=== PATIENT | female | born 1965 | race Caucasian/White ===

== ENCOUNTER 2023-03-08 19:44 | Emergency (ER) | payer OTHER, SELFPAY ==
--- NOTE | ~2023-03-08 | XR_ITS ---
EXAMINATION: XR FINGER, LEFT CLINICAL INFORMATION: Left 5th finger trauma. COMPARISON: None available. TECHNIQUE: PA view of the left hand as well as oblique and lateral views of the left small finger. FINDINGS: Volar soft tissue defect/laceration. No radiopaque foreign body. No abnormal soft tissue calcification. No acute fracture or dislocation. No concerning lytic or blastic osseous lesion. 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 XR/XR finger LT min 2V IMPRESSION: 1. Volar soft tissue defect/laceration without radiopaque foreign body. 2. No acute fracture or dislocation.
[2023-03-08 20:00] VITALS: BP 130/80; BP 138/73; PULSE 104; PULSE 90; RESP 18; TEMP 36.6; O2SAT 97; O2SAT 98; BMI 33.7
--- NOTE | 2023-03-08 20:02 | ED.GENADULT ---
HPI - General Adult General Chief complaint: Extremity Injury, Upper Stated complaint: lac to L hand pinky Time Seen by Provider: 03/08/23 21:44 Source: patient Mode of arrival: ambulatory Limitations: no limitations History of Present Illness HPI narrative: see additional note dated 03/08/2023 Related Data Allergies Allergy/AdvReac Type Severity Reaction Status Date / Time dulaglutide [From [facility]] Allergy Unknown Unknown Verified 03/08/23 20:06 doxycycline AdvReac Chest Pain Verified 03/08/23 20:06 ibuprofen AdvReac Chest Pain Verified 03/08/23 20:06 Physical Exam ED Vital Signs: BMI result Body Mass Index 33.7 Course Course Course Narrative: This is a rapid medical exam: Additional HPI, ROS, PE not included below will be deferred to primary provider. Patient is a 57-year-old [id number] female presenting to the emergency department with complaint of laceration to left 5th finger which happened at work. States was pushing open a trash machine when her hand was crushed by part of the door. Unsure most recent tetanus. Decreased ROM with flexion. Avulsion to palmar aspect as well as what appears to be a puncture wound. Plan: Tdap, x-ray Medications Administered Discontinued Medications Generic Name Dose Route Start Last Admin Trade Name Freq PRN Reason Stop Dose Admin Diphtheria/Tetanus/Acell Pertussis 0.5 ml 03/08/23 20:06 03/08/23 21:13 Diphth,Pertus(Acell),Tet Adult 0.5 Ml Syringe IM 03/08/23 20:07 0.5 ml .ONCE ONE Administration Lidocaine HCl 5 ml 03/08/23 22:54 03/08/23 23:29 Lidocaine Hcl 1 % Mpf 5 Ml Vial SUBCUT 03/08/23 22:55 5 ml ONCE ONE Administration Discharge Plan Discharge Clinical Impression: Finger laceration Patient Disposition: Home, Self-Care Instructions: Finger Laceration (ED) Additional Instructions: 2 Stitches will need to be removed in 10-14 days. He can return back to the emergency department or follow-up with your primary care provider for removal. If you develop redness, increased swelling, pain, pus-like discharge, fevers, chills then you should have this re-evaluated Referrals: Marisel Ojeda MD [Primary Care Provider] - Interventions: ED Discharge Assessment Last Done: 03/09/23 00:03 Discharge Date/Time: 03/09/23 00:04
[2023-03-08] MEDS: Diphth,Pertus(ACell),Tet Adult 0.5 ML SYRINGE IM (21:13)
--- NOTE | 2023-03-08 22:47 | ED_ITS ---
HPI - Wound/Laceration General Chief Complaint: Extremity Injury, Upper Stated Complaint: lac to L hand pinky Time Seen by Provider: 03/08/23 21:44 Source: patient Mode of arrival: EMS Limitations: no limitations History of Present Illness HPI narrative: Patient is a 57-year-old female who presents emergency department for evaluation of a laceration to the left 5th digit. She reports that she was attempting to m ove a lower cleaning machine at work when suddenly a plastic door slammed down and caught her finger sustaining a laceration. She is able to flex and extend the digit though it is painful to do so. Bleeding is currently controlled. The unaware of the date of her last tetanus vaccine. Related Data Allergies Allergy/AdvReac Type Severity Reaction Status Date / Time dulaglutide [From [facility]] Allergy Unknown Unknown Verified 03/08/23 20:06 doxycycline AdvReac Chest Pain Verified 03/08/23 20:06 ibuprofen AdvReac Chest Pain Verified 03/08/23 20:06 Review of Systems Review of Systems: Yes all other systems are reviewed and are negative [facility] Past Medical History Attestation statement: The following information was validated with the patient. Source: old records reviewed Social History Social History Advance Directives: No Advance Directives Information Provided: No Physical Exam Vital Signs: Vital Signs: Last Vital Signs Temp 97.9 F 03/08/23 20:00 Pulse 104 H 03/08/23 20:00 Resp 18 03/08/23 20:00 BP 138/73 03/08/23 20:00 Pulse Ox 97 03/08/23 20:00 O2 Del Method Room Air 03/08/23 20:00 BMI result Body Mass Index 33.7 Appearance: Alert.?Oriented to person, place and time. No acute distress.?Normal affect. Neck: Normal inspection.? Neck supple.?? CVS: Heart sounds normal. Normal heart rate and rhythm.? Pulses normal.?? Respiratory: No respiratory distress.? Lung sounds clear to auscultation bilaterally?? Abdomen: Soft and non-tender. Skin: Skin warm and dry.? Normal skin color.? Left 5th digit with 2 cm irregular laceration over the palmar aspect Extremities: No lower extremity edema.? Neuro: Moves all extremities spontaneously. Sensation intact bilaterally. Ambulates with normal steady gait. Medications Administered Discontinued Medications Generic Name Dose Route Start Last Admin Trade Name Freq PRN Reason Stop Dose Admin Diphtheria/Tetanus/Acell Pertussis 0.5 ml 03/08/23 20:06 03/08/23 21:13 Diphth,Pertus(Acell),Tet Adult 0.5 Ml Syringe IM 03/08/23 20:07 0.5 ml .ONCE ONE Administration Medical Decision Making Medical Decision Making [facility] Narrative: Patient is a 57-year-old female presents emergency department for evaluation of a laceration to the left 5th digit. Bleeding is controlled. Was cleansed extensively with Betadine and saline. Full AROM, able to flex and extend. XR imaging reveals no acute osseous abnormality. Laceration repair with sutures, please see procedure note for further detail. Advised she will need suture removal in 10-14 days. Discussed worrisome signs and symptoms including signs of infection that would warrant re-evaluation. All questions answered. Stable for discharge. Differential Diagnosis Differential Diagnoses: The differential diagnosis associated with the presentation includes (Laceration, fracture, neurovascular compromise) Independent Interpretation I performed an independent interpretation of an: Plain X-Ray (I personally interpreted XR imaging of the left finger and agree with radiologist impression, no fracture or retained radiopaque foreign body) Radiology Impression Discussion of test interpretation with radiology: I have reviewed the radiologist's reading. Radiologist Impression: XR/XR finger LT min 2V IMPRESSION: ? 1. Volar soft tissue defect/laceration without radiopaque foreign body. ? 2. No acute fracture or dislocation. Prescription Management I considered prescription management with: Pain Medication (Acetaminophen/ibuprofen) and Antibiotic (Topical antibiotic) Procedures Laceration Laceration 1: Site: hand Side (If applicable): left Size (cm): 2 Description: irregular Depth: simple, single layer Local Anesthetic: lidocaine 1% Amount of anesthesia used (mL): 2 Pre-repair: wound explored, irrigated extensively and deep structures intact Skin layer closed with: nylon Size (cm): 5-0 Number of sutures: 2 Technique: simple, interrupted Discharge Plan Discharge Clinical Impression: Finger laceration Patient Disposition: Home, Self-Care Instructions: Finger Laceration (ED) Additional Instructions: 2 Stitches will need to be removed in 10-14 days. He can return back to the emergency department or follow-up with your primary care provider for removal. If you develop redness, increased swelling, pain, pus-like discharge, fevers, chills then you should have this re-evaluated Referrals: Marisel Ojeda MD [Primary Care Provider] -
[2023-03-08] MEDS: Lidocaine HCl 1 % MPF 5 ML VIAL SUBCUT (23:29)
== END 2023-03-09 00:04 | disposition home or self-care (01) ==
PROVIDERS: Emergency Provider Internal Medicine; PCP Internal Medicine
DX: S61.217A Laceration without foreign body of left little finger without damage to nail, initial encounter (principal); S60.417A Abrasion of left little finger, initial encounter; M79.642 Pain in left hand; Y28.9XXA Contact with unspecified sharp object, undetermined intent, initial encounter; Y93.9 Activity, unspecified; Y92.9 Unspecified place or not applicable; Y99.9 Unspecified external cause status; Z23 Encounter for immunization
CPT/HCPCS: 12001; 73140; 90471; 90715; 99282; 99284

== ENCOUNTER 2023-12-14 15:05 | Inpatient (IN) | payer OTHER, SELFPAY ==
--- NOTE | ~2023-12-14 | XR_ITS ---
EXAMINATION: XR ANKLE, LEFT XR FOOT, LEFT CLINICAL INFORMATION: Great toe wound. COMPARISON: Left tibia and fibula dated 12/15/2023. TECHNIQUE: AP, lateral, and mortise views of the left ankle. AP, lateral, and oblique views of the left foot. FINDINGS: Bony alignment and mineralization are normal. The ankle mortise is intact. No fracture, dislocation or left ankle joint effusion is seen. Boehler's angle is normal. There are tiny posterior and small plantar calcaneal spurs. There are degenerative changes of the dorsal midfoot. There is generalized soft tissue swelling of the ankle. There is no bone erosion or periosteal thickening. No soft tissue gas or foreign body is noted. XR/XR ankle LT min 3V IMPRESSION: 1. No fracture, dislocation or left ankle joint effusion is seen. 2. There are tiny posterior and small plantar left calcaneal spurs. 3. No focal bone erosion, periosteal thickening or soft tissue gas is seen to suggest focal osteomyelitis.
--- NOTE | ~2023-12-14 | US_ITS ---
EXAMINATION: NONINVASIVE ASSESSMENT OF THE ARTERIES OF THE LEFT LOWER EXTREMITY INCLUDING LEFT LOWER EXTREMITY DUPLEX. CLINICAL INFORMATION: Diabetes, infection COMPARISON: None TECHNIQUE: duplex Doppler techniques with wave form analysis and measurement of velocities in the left common femoral, profunda femoral, superficial femoral, popliteal, tibial and peroneal arteries. The study was performed only at rest. FINDINGS: LEFT LEG: Common femoral artery: 106 cm/s, Multiphasic Profunda femoris artery: 45 cm/s, Multiphasic Superficial femoral artery (proximal): 106 cm/s, Multiphasic Superficial femoral artery (mid): 83 cm/s, Multiphasic Superficial femoral artery (distal): 82 cm/s, Multiphasic Proximal Popliteal artery: 91 cm/s, Multiphasic Mid posterior tibial artery: 91 cm/s, monophasic US/US arterial duplex LE IMPRESSION: Monophasic waveforms in the mid posterior tibial artery, atherosclerotic disease, otherwise no hemodynamically significant stenoses.
--- NOTE | ~2023-12-14 | IR_ITS ---
CLINICAL HISTORY: IV antibiotics PROCEDURES: 1. Real-time ultrasound-guided access into the right basilic vein after documentation of selected vessel patency, and permanent imaging storing in the patient record. 2. Placement of a 5 fr 45 cm, dual lumen power PICC CLINICIANS: Khoa Mireles PA-C MEDICATIONS: -Lidocaine 1% 10 mL SQ. -Antibiotics: None. Complications: None. Estimated blood loss: <5 ml Specimens: None. Contrast: None. Fluoroscopy time: 0.4 min Procedure note: The procedure, risks, benefits, and alternatives were carefully explained to the patient and written informed consent was obtained. The patient was placed supine on the fluoroscopy table. A timeout was performed. The right arm was prepped and draped in usual sterile fashion. Using ultrasound and fluoroscopic guidance, venous access was achieved into the basilic vein with a micropuncture set. A peel-away sheath was advanced over the wire. The 0.018 inch wire was advanced into the right atrium. A 5 fr, 45 cm, dual lumen power PICC was advanced over the wire, with its tip in the the caval atrial junction. The wire was removed. The catheter was tested and secured with a StatLock dressing. A permanent ultrasound image and chest fluoroscopic image was saved to PACS. The patient was stable after the procedure and was transferred to the floor. FINDINGS: 1. Patent right basilic vein 2. Placement of a 5 fr 45 cm, dual lumen power PICC IR/IR cvc insert peripheral IMPRESSION: Placement of a 5 fr 45 cm, dual lumen power PICC PLAN: -The catheter may be used immediately. This procedure was performed by Khoa Mireles PA-C, and directly supervised by Dr. Olson
--- NOTE | ~2023-12-14 | MR_ITS ---
EXAMINATION: MR FOOT WITHOUT AND WITH CONTRAST, LEFT CLINICAL INFORMATION: Left great toe infection. Evaluate for osteomyelitis. COMPARISON: Left foot radiographs dated 12/14/2023. TECHNIQUE: MRI of the left foot was performed before and after the intravenous administration of 7.5 mL Gadavist on a high-field scanner. FINDINGS: Soft tissue irregularity with possible ulceration along the plantar aspect of the distal great toe. This measures approximately 1.5 cm in AP dimension. Associated skin thickening and subcutaneous edema with mild postcontrast enhancement, consistent with acute cellulitis. No organized fluid collection or abscess formation. Significantly increased T2 and slightly decreased T1 signal within the first distal phalanx where there is prominent postcontrast marrow enhancement and periosteal reaction, consistent with acute osteomyelitis. No additional evidence of osteomyelitis. No metatarsal stress reaction or fracture. No concerning lytic or blastic osseous lesion. Articular cartilage thinning with small marginal osteophytes at the first metatarsophalangeal joint and hallux sesamoids. Partially visualized osteoarthritis at the second and third tarsometatarsal joints. Edema throughout the intrinsic musculature of the foot which can be seen in diabetic patients. No transverse tendon tear or tendon retraction. Intact Lisfranc ligament. Prominent dorsal subcutaneous edema without enhancement or abscess formation. MR/MR foot LT wo/w con IMPRESSION: 1. Soft tissue irregularity with possible ulceration along the plantar aspect of the distal great toe with associated cellulitis. No abscess formation. Acute osteomyelitis within the first distal phalanx. 2. Mild osteoarthritis at the first metatarsophalangeal joint and hallux sesamoids. Partially visualized osteoarthritis at the second and third tarsometatarsal joints. 3. Edema throughout the intrinsic musculature of the foot which can be seen in diabetic patients. 4. Prominent dorsal subcutaneous edema without enhancement or abscess formation.
--- NOTE | ~2023-12-14 | XR_ITS ---
EXAMINATION: XR TIBIA AND FIBULA, LEFT CLINICAL INFORMATION: Foot injury now with lower extremity pain COMPARISON: None available. TECHNIQUE: AP and lateral views of the left tibia and fibula were obtained. FINDINGS: Tibia and fibula intact. No radiopaque foreign body or fracture or destructive process. XR/XR tibia fibula LT 2V IMPRESSION: Normal left tibia and fibula.
--- NOTE | ~2023-12-14 | XR_ITS ---
EXAMINATION: XR ANKLE, LEFT XR FOOT, LEFT CLINICAL INFORMATION: Great toe wound. COMPARISON: Left tibia and fibula dated 12/15/2023. TECHNIQUE: AP, lateral, and mortise views of the left ankle. AP, lateral, and oblique views of the left foot. FINDINGS: Bony alignment and mineralization are normal. The ankle mortise is intact. No fracture, dislocation or left ankle joint effusion is seen. Boehler's angle is normal. There are tiny posterior and small plantar calcaneal spurs. There are degenerative changes of the dorsal midfoot. There is generalized soft tissue swelling of the ankle. There is no bone erosion or periosteal thickening. No soft tissue gas or foreign body is noted. XR/XR foot LT min 3V IMPRESSION: 1. No fracture, dislocation or left ankle joint effusion is seen. 2. There are tiny posterior and small plantar left calcaneal spurs. 3. No focal bone erosion, periosteal thickening or soft tissue gas is seen to suggest focal osteomyelitis.
[2023-12-14 15:10] VITALS: BP 137/80; PULSE 98; RESP 16; TEMP 36.3; O2SAT 96; BMI 32.5
--- NOTE | 2023-12-14 15:16 | ED.WOUNDLAC ---
HPI - Wound/Laceration General Chief Complaint: Wound/Laceration Stated Complaint: bilat feet swollen, patient is diabetic Time Seen by Provider: 12/14/23 17:16 Source: patient Mode of arrival: ambulatory Limitations: no limitations History of Present Illness ED Provider: Eder Paez PA-C HPI narrative: 58-year-old female past medical history of diabetes presents to the ED for right great toe redness and swelling. Patient was picking at her nails and now has redness with some yellow discoloration. Patient states glucose has been elevated. Patient states no fever or chills. Patient states having pain. Patient states now redness spreading up leg Related Data Home Medications ?Medication ?Instructions ?Recorded ?Confirmed atorvastatin 40 mg tablet 40 mg PO BEDTIME 12/14/23 12/14/23 cholecalciferol (vitamin D3) 25 25 mcg PO DAILY 12/14/23 12/14/23 mcg (1,000 unit) capsule (Vitamin D3) insulin glargine 100 unit/mL (3 25 unit subcut BID 12/14/23 12/14/23 mL) subcutaneous pen (Lantus Solostar U-100 Insulin) simethicone 180 mg capsule 180 mg PO QID PRN Gastric Reflux 12/14/23 12/14/23 Allergies Allergy/AdvReac Type Severity Reaction Status Date / Time dulaglutide [From [facility]] Allergy Unknown Unknown Verified 12/14/23 15:10 doxycycline AdvReac Chest Pain Verified 12/14/23 15:10 ibuprofen AdvReac Chest Pain Verified 12/14/23 15:10 [facility] Past Medical History Medical History (Updated 12/14/23 @ 19:53 by JENNIFER Aguirre) Asthma Hyperlipidemia Type 2 diabetes mellitus Social History Social History Smoked in Last 30 Days: No Use of substances other than those prescribed or required for medical reasons: No Advance Directives: No Advance Directives Information Provided: No Do you have a plan to hurt others: No Plan Patient : No Physical Exam Vital Signs: Vital Signs: Last Vital Signs Temp 97.3 F 12/14/23 15:10 Pulse 98 12/14/23 15:10 Resp 16 12/14/23 15:10 BP 137/80 12/14/23 15:10 Pulse Ox 96 12/14/23 15:10 O2 Del Method Room Air 12/14/23 15:10 BMI result Body Mass Index 32.5 Const: General: cooperative, healthy appearing, comfortable, no acute distress, well developed, alert, awake and Physically active Orientation/consciousness: oriented to person, oriented to place, oriented to time and patient oriented x3 HEENT: Head: Yes normal to inspection, Yes No palpable skull fracture present, Yes normocephalic, Yes atraumatic and No abrasion Eyes: General: appearance normal, both eyes and all related structures Neck: Neck: Yes normal visual inspection, Yes full ROM, Yes no lymphadenopathy, Yes no meningeal signs, Yes trachea midline, Yes supple, No anterior neck swelling and No tender Chest: Chest palpation & inspection: normal inspection of the chest and normal palpation of entire chest wall Resp: Effort & Inspection: normal respiratory effort and able to speak in complete sentences Auscultation: clear to auscultation bilaterally Cardio: Jugular venous distension: no JVD Heart sounds: S1 normal heart sound present and S2 normal heart sound present GI: Inspection: Yes normal to inspection Palpation (GI): Soft to palpation, not firm, nontender, no guarding and not rigid : General: No CVA tenderness and Yes no CVA tenderness Back/Spine/Pelvis: Back: no CVA tenderness, No CVA tenderness and No back tenderness Skin: General skin exam: no rashes or lesions noted, elasticity normal and turgor normal Neuro: General: oriented to person, oriented to place, oriented to time, patient oriented x3, gait normal, tone normal, moves all extremities, Normal light touch and pain sensation, no meningeal signs, no focal motor deficits, CN's II-XI intact bilaterally and normal sensation to monofilament Extrem: Other: positive for erythema and tenderness on palpation. Vascular neuro motor exam intact General: Yes normal to inspection and Yes full ROM Psych: Appearance: grossly normal, well kempt and not disheveled Course Course Course Narrative: This is a Rapid Medical Examination (RME) performed by Willie Bustillo PA-C in triage. Full HPI, ROS, assessment and treatment plan per primary provider in the Main ED. 50-year-old female history of diabetes here for eval of left great toe infection. Admits to cutting her toenails about a week ago. Since this time has had increasing redness, swelling and pain to her left great toe, now traveling proximally into her left ankle and left lower leg. Denies history of diabetic foot wounds. Denies fevers however reports chills. On exam, noted redness and swelling to right great toe moving proximally into left vincent. no active drainage. warm to palpation. Plan: labs, xrs Medications Administered Generic Name Dose Route Start Last Admin Trade Name Charbelq PRN Reason Stop Dose Admin Acetaminophen 650 mg 12/14/23 19:04 12/14/23 23:37 Acetaminophen 325 Mg Tablet PO 650 mg Q6H PRN Administration Pain, Mild (Pain Scale 1-3) Enoxaparin Sodium 40 mg 12/14/23 20:00 12/14/23 21:13 Enoxaparin Sodium 40 Mg/0.4 Ml Syringe SUBCUT 40 mg Q24H WILLIAM Administration Piperacillin Sod/Tazobactam 100 mls @ 200 mls/hr 12/14/23 21:00 12/14/23 21:37 Sod 4.5 gm/ Sodium Chloride IV Infused Q6H WILLIAM Infusion Insulin Glargine 19 unit 12/14/23 21:00 12/14/23 21:12 Insulin Glargine,Hum.Rec.Anlog 100 Unit/Ml 10 Ml Vial SUBCUT 19 unit BEDTIME WILLIAM Administration Insulin Human Lispro 0 unit 12/14/23 21:00 12/14/23 21:11 Insulin Lispro 100 Unit/Ml 3 Ml Vial SUBCUT Not Given QIDACHS [facility] Protocol Discontinued Medications Generic Name Dose Route Start Last Admin Trade Name Freq PRN Reason Stop Dose Admin Sodium Chloride 1,000 mls @ 999 mls/hr 12/14/23 17:39 12/14/23 22:50 Ns IV 12/14/23 18:39 Infused .Q1H1M STA Infusion Vancomycin HCl 2,000 mg in 500 mls @ 250 mls/hr 12/14/23 17:39 12/14/23 20:39 Vancomycin/Ns IV 12/14/23 19:38 Infused ONCE ONE Infusion Medical Decision Making Medical Decision Making [facility] Narrative: 58-year-old female history of diabetes presenting as diabetic foot. No white count. X-ray pending. Elevated ESR CRP. Patient started on vancomycin. 6:47pm: patient admitted to hospitalist. Spoke with Dr. Rosa as I [facility] for admission for diabetic foot. ESR CRP elevated. Waiting on x-ray to rule out osteomyelitis. Patient agreeable with plan Differential Diagnosis Differential Diagnoses: The differential diagnosis associated with the presentation includes (diabetic foot, osteomyelitis) Admission/Observation Consideration of admission/observation: Escalation of care including admission/observation considered Consult Healthcare Provider Management of the patient was discussed with: Hospitalist (Dr. Rosa) Lab Data 12/14/23 15:44 12/14/23 15:44 Labs: Lab Results 12/14/23 12/14/23 Range/Units 15:44 17:49 WBC 9.6 (4.8-10.8) X10*3/uL RBC 4.28 (4.20-5.50) X10*6/uL Hgb 11.9 L (12.0-16.0) g/dl Hct 34.8 L (37.0-47.0) % MCV 81.3 (80.0-98.0) fL MCH 27.8 (27.0-33.0) pg MCHC 34.2 (31.0-35.0) g/dl RDW 12.5 (11.0-16.0) % Plt Count 308 (160-400) X10*3/uL MPV 9.0 L (9.4-12.3) fL Immature Gran % (Auto) 0.9 H (0.0-0.4) % Neut % (Auto) 70.4 (45-73) % Lymph % (Auto) 18.3 L (20-40) % [place] % (Auto) 9.7 (2-11) % Eos % (Auto) 0.4 (0-4) % Baso % (Auto) 0.3 (0-2) % Lymph # (Auto) 1.8 (1.2-4.9) X10*3/uL [place] # (Auto) 0.9 (0.1-1.2) X10*3/uL Eos # (Auto) 0.0 (0.0-0.4) X10*3/uL Baso # (Auto) 0.0 (0.0-0.2) X10*3/uL Abs Immat Gran (auto) 0.09 H (0.00-0.03) X10*3/uL Absolute Neuts (auto) 6.7 (2.0-8.3) x10*3/uL Absolute Nucleated RBC 0.000 (0.0-0.012) X10*3/uL Nucleated RBC % (auto) 0.0 (0.0-0.2) /100WBC ESR 73 H (0-20) MM/HR Sodium 132 L (135-145) mmol/L Potassium 4.1 (3.3-5.1) mmol/L Chloride 97 (96-108) mmol/L Carbon Dioxide 28 (22-29) mmol/L Anion Gap 11 L (12-20) BUN 11 (9-16) mg/dL Creatinine 0.74 (0.5-1.4) mg/dL Estim Creat Clear Calc 81.4 Estimated GFR > 60 Random Glucose 357 H* (60-115) mg/dL Lactic Acid 0.9 (0.5-2.0) mmol/L Calcium 9.6 (8.4-10.2) mg/dL Magnesium 1.7 (1.6-2.6) mg/dL Total Bilirubin 0.7 (0.0-1.0) mg/dL AST 13 (5-31) U/L ALT 17 (0-31) U/L Alkaline Phosphatase 175 H (39-117) U/L C-Reactive Protein 8.49 H (< or = 0.50) mg/dL Total Protein 7.7 (6.5-8.0) g/dL Albumin 3.8 (3.5-5.0) g/dL Lipase 18 (8-78) U/L Independent Historian Clinical information obtained from an independent historian. History obtained from or confirmed by: Other (patient) External Record Review External record reviewed: Other (prior visits) Prescription Management I considered prescription management with: Antibiotic Critical Care Time Critical Care Time Critical Care Time: Yes Total Critical Care Time: 60 Attestation: Diabetic foot. antibiotis ordered. admitted to hospitalists. Discharge Plan Discharge Clinical Impression: Diabetic foot infection Patient Disposition: Admitted As Inpatient
[2023-12-14 15:47] LABS: MANUAL DIFF FLAG NO
[2023-12-14 15:49] LABS: Basophils Percent Auto 0.3 % (0-2); Eosinophils Percent Auto 0.4 % (0-4); Hematocrit 34.8 % (37.0-47.0); Hemoglobin 11.9 g/dl (12.0-16.0); Imm Gran Abs Auto 0.09 X10*3/uL (0.00-0.03); Imm Gran Pct Auto 0.9 % (0.0-0.4); Lymphocytes Absolute Auto 1.8 X10*3/uL (1.2-4.9); Lymphocytes Percent Auto 18.3 % (20-40); Mean Corpuscular HGB Conc 34.2 g/dl (31.0-35.0); Mean Corpuscular Hemoglobin 27.8 pg (27.0-33.0); Mean Corpuscular Volume 81.3 fL (80.0-98.0); Monocytes Absolute Auto 0.9 X10*3/uL (0.1-1.2); Monocytes Percent Auto 9.7 % (2-11); Neutrophils Absolute Auto 6.7 x10*3/uL (2.0-8.3); Neutrophils Percent Auto 70.4 % (45-73); Platelet Count 308 X10*3/uL (160-400); Red Blood Count 4.28 X10*6/uL (4.20-5.50); Red Cell Distribution Width 12.5 % (11.0-16.0); White Blood Count 9.6 X10*3/uL (4.8-10.8)
[2023-12-14 16:27] LABS: Alanine Aminotransferase 17 U/L (0-31); Albumin Level 3.8 g/dL (3.5-5.0); Alkaline Phosphatase 175 U/L (39-117); Anion Gap 11 (12-20); Aspartate Amino Transferase 13 U/L (5-31); Bilirubin Total 0.7 mg/dL (0.0-1.0); Blood Urea Nitrogen 11 mg/dL (9-16); Calcium 9.6 mg/dL (8.4-10.2); Carbon Dioxide 28 mmol/L (22-29); Chloride 97 mmol/L (96-108); Creatinine Clr Calc Pharmacy 81.4; Estimated Glomerular Filt Rate > 60; Glucose Random 357 mg/dL (60-115); Lipase 18 U/L (8-78); Magnesium 1.7 mg/dL (1.6-2.6); Potassium 4.1 mmol/L (3.3-5.1); Sodium 132 mmol/L (135-145); Total Protein 7.7 g/dL (6.5-8.0)
[2023-12-14 17:36] LABS: C Reactive Protein 8.49 mg/dL (< or = 0.50)
[2023-12-14] MEDS: vancomycin/NS 2,000 MG/500 ML PLAST..BAG 250 MG IV (18:05)
[2023-12-14] MEDS: 0.9 % Sodium Chloride 1,000 ML 999 ML IV (18:05)
[2023-12-14 18:07] LABS: Lactic Acid 0.9 mmol/L (0.5-2.0)
[2023-12-14 18:11] LABS: Erythrocyte Sedimentation Rate 73 MM/HR (0-20)
--- NOTE | 2023-12-14 19:07 | PM.IMHP ---
History of Present Illness Date of Service: 12/14/23 Attending physician on admission: Whitney Rosa Chief Complaint: foot infection 58-year-old female with history of insulin-dependent type 2 diabetes, hyperlipidemia, history of asthma presented to the ED earlier today for evaluation of an infection of the left great toe. She reports about 8 days ago she was cutting her toenails when she accidentally cut some of the lateral nail fold. Three days ago noticed swelling, erythema, and warmth around the area that has gotten progressively worse. Denies any fevers, chills, purulent drainage. She is able to ambulate but does report discomfort in the toe. She denies any history of diabetic foot infection. On arrival, patient tachycardic to 104 but afebrile. No hypotension. There is no leukocytosis. Renal function normal, electrolyte levels normal except for sodium 132. Glucose is elevated at 357. Lactic acid is 0.9. CRP 8.49, ESR 73. X-ray of the left ankle, left foot, and left tibia/fibula pending. In the ED, has been started on IV vancomycin and Zosyn. She will be admitted for further evaluation management of diabetic foot infection. Review of Systems Review of Systems: Yes all other systems are reviewed and are negative [facility] Medical History (Updated 12/14/23 @ 19:53 by JENNIFER Aguirre) Asthma Hyperlipidemia Type 2 diabetes mellitus Social History Advance Directives: No Advance Directives Information Provided: No Do you have a plan to hurt others: No Plan Meds Allergies Allergy/AdvReac Type Severity Reaction Status Date / Time dulaglutide [From [facility]] Allergy Unknown Unknown Verified 12/14/23 15:10 doxycycline AdvReac Chest Pain Verified 12/14/23 15:10 ibuprofen AdvReac Chest Pain Verified 12/14/23 15:10 Active Medications: Current Medications Vancomycin HCl (Vancomycin/Ns) 2,000 mg in 500 mls @ 250 mls/hr IV ONCE ONE Stop: 12/14/23 19:38 Last Admin: 12/14/23 18:05 Dose: 250 mls/hr Home Medications ?Medication ?Instructions ?Recorded ?Confirmed ?Last Taken ?Type atorvastatin 40 mg tablet 40 mg PO BEDTIME 12/14/23 12/14/23 Unknown History cholecalciferol (vitamin D3) 25 25 mcg PO DAILY 12/14/23 12/14/23 Unknown History mcg (1,000 unit) capsule (Vitamin D3) insulin glargine 100 unit/mL (3 25 unit subcut BID 12/14/23 12/14/23 11/30/23 History mL) subcutaneous pen (Lantus Solostar U-100 Insulin) simethicone 180 mg capsule 180 mg PO QID PRN Gastric Reflux 12/14/23 12/14/23 12/12/23 History Physical Exam Vital Signs and Narrative: Vital Signs: Last Vital Signs Temp 97.3 F 12/14/23 15:10 Pulse 98 12/14/23 15:10 Resp 16 12/14/23 15:10 BP 137/80 12/14/23 15:10 Pulse Ox 96 12/14/23 15:10 O2 Del Method Room Air 12/14/23 15:10 BMI result Body Mass Index 32.5 Constitutional - Awake and Alert, No apparent distress Eyes - PERRLA, EOMI Cardiovascular - S1S2, RRR, No edema Respiratory - Normal lung expansion, Normal respiratory effort, No respiratory distress, CTA bilaterally Gastrointestinal - NT / ND; +BS; No rebound or guarding Extremities - no calf tenderness bilaterally, no swelling Skin - Warm/Dry. Shallow ulceration of the lateral aspect of the left great toe without purulent drainage. Significant erythema and warmth of the left great toe and dorsum of the foot extending to the mid lower leg Neurological - Alert & oriented x3 Psychological - Appropriate affect Results Labs 12/14/23 15:44 12/14/23 15:44 Labs: Laboratory Results - last 24 hr 12/14/23 12/14/23 15:44 17:49 MCV 81.3 MCH 27.8 MCHC 34.2 RDW 12.5 Plt Count 308 MPV 9.0 L Immature Gran % (Auto) 0.9 H Neut % (Auto) 70.4 Lymph % (Auto) 18.3 L [place] % (Auto) 9.7 Eos % (Auto) 0.4 Baso % (Auto) 0.3 Lymph # (Auto) 1.8 [place] # (Auto) 0.9 Eos # (Auto) 0.0 Baso # (Auto) 0.0 Abs Immat Gran (auto) 0.09 H Absolute Neuts (auto) 6.7 Absolute Nucleated RBC 0.000 Nucleated RBC % (auto) 0.0 ESR 73 H Anion Gap 11 L Estim Creat Clear Calc 81.4 Estimated GFR > 60 Random Glucose 357 H* Lactic Acid 0.9 Calcium 9.6 Magnesium 1.7 Total Bilirubin 0.7 AST 13 ALT 17 Alkaline Phosphatase 175 H C-Reactive Protein 8.49 H Total Protein 7.7 Albumin 3.8 Lipase 18 Assessment and Plan (1) Diabetic foot infection: Status: Acute Plan 58-year-old female with history of insulin-dependent type 2 diabetes, hyperlipidemia, history of asthma admitted for further management of cellulitis of the left foot in uncontrolled type 2 diabetic #cellulitis of the left foot in uncontrolled type 2 diabetic -no leukocytosis. No sepsis -CRP 8, ESR 73. 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 DVT prophylaxis-Lovenox Full code Given significant cellulitis of the left foot with elevated inflammatory markers concerning for possible osteomyelitis, in patient with uncontrolled type 2 diabetes, will require admission at least 2 midnights for IV antibiotics, close monitoring of hemodynamics and cultures Quality Stroke Does the patient have a stroke diagnosis?: No VTE Prior VTE?: No VTE Risk Level:: Medical - moderate - high VTE Device Contraindication: Treatment Not Indicated VTE Drug Contraindication: N/A - Med Ordered
--- NOTE | 2023-12-14 19:33 | PHA.PROG ---
Admission Date/Time: December 14, 2023 19:04 Indication: ssti Weight in k.5 kg Adjusted body weight in K kg [place] body weight in K.1 kg Obesity Dosing Indication % IBW: Serum Creatinine - Last 168 Hours 12/14/23 15:44 Creatinine 0.74 Estimated CrCl and GFR - Last 168 Hours 12/14/23 15:44 Estim Creat Clear Calc 81.4 Estimated GFR > 60 Vancomycin Loading Dose: 2000 mg Current Vancomycin Dosing Regimen: 1000 mgq12h Vancomycin Monitoring using AUC goal of 400 - 600 range with trough as surrogate marker: predicted auc 492 Date and Time for next Vancomycin Level to be drawn: before 3rd dose 12/15/23 @1600 Pharmacist Comments on Vancomycin Plan: toggled between obese and modified goti models Vancomycin dosing will take advantage of [employer] as a clinical decision support tool that uses Bayesian modeling to calculate individual patient's pharmacokinetic parameters and forecast the patient's drug concentration time course with the target goal AUC 24 range of 400 - 600 mg/L/hr.
--- NOTE | 2023-12-14 19:37 | PHA.MEDREC ---
Pharmacy Consult ? Medication Reconciliation Pharmacy has completed the medication reconciliation. Spoke to patient to confirm med list. patient states she takes Lantus Solostar 25 unit bid, but hasn't taken in 2 weeks. Patient says she should be on Atorvastatin 40 mg daily but her Dr will not refill her medication until patient has been seen in office. patient stated she has to cancel her appointments due to no transportation.
[2023-12-14 20:43] LABS: Glucose, Whole Blood 255 mg/dL (60-115)
[2023-12-14] MEDS: Piperacillin Sodium/Tazobactam 4.5 GM in 0.9 % Sodium Chloride 100 ML IV (21:08)
[2023-12-14] MEDS: Insulin Glargine,Hum.rec.anlog 100 UNIT/ML 10 ML VIAL 19 UNIT SUBCUT (21:12)
[2023-12-14] MEDS: Enoxaparin Sodium 40 MG/0.4 ML SYRINGE SUBCUT (21:13)
--- NOTE | 2023-12-14 21:33 | PC.NURSE ---
pt medicated per MAR- rec 2g vanco. pt POC 255 pt refuses ademelog as it makes her nauseous explained benefits of fast acting insulin, pt prefers to take lantus only at this time. pt IV in R-AC infitrated while fluids were infusing. new access obtained in l_ac zosyn 4.5 infusing per order with remaining 600mls of IVF. MRI screening form completed and faxed to imaging, fax confirmation received- pt to have MRI tomorrow. pt now resting quietly call vidal within reach
[2023-12-14] MEDS: Acetaminophen 325 MG TABLET 650 MG PO (23:37)
[2023-12-15 00:35] VITALS: RESP 16
[2023-12-15 00:40] VITALS: BMI 32.3
[2023-12-15 00:48] VITALS: BP 139/67; PULSE 88; RESP 16; TEMP 35.8; O2SAT 96
[2023-12-15] MEDS: 0.9 % Sodium Chloride Flush 3 ML SYRINGE IVFLUSH ×4 (00:53→21:43)
[2023-12-15] MEDS: Piperacillin Sodium/Tazobactam 4.5 GM in 0.9 % Sodium Chloride 100 ML IV ×4 (04:06→20:34)
[2023-12-15 04:09] VITALS: TEMP 36.1
[2023-12-15 05:50] LABS: MANUAL DIFF FLAG NO
[2023-12-15 05:53] LABS: Basophils Percent Auto 0.4 % (0-2); Eosinophils Absolute Auto 0.1 X10*3/uL (0.0-0.4); Eosinophils Percent Auto 0.9 % (0-4); Hematocrit 31.2 % (37.0-47.0); Hemoglobin 10.4 g/dl (12.0-16.0); Imm Gran Abs Auto 0.07 X10*3/uL (0.00-0.03); Lymphocytes Absolute Auto 1.9 X10*3/uL (1.2-4.9); Lymphocytes Percent Auto 26.7 % (20-40); Mean Corpuscular HGB Conc 33.3 g/dl (31.0-35.0); Mean Corpuscular Hemoglobin 27.2 pg (27.0-33.0); Mean Corpuscular Volume 81.7 fL (80.0-98.0); Mean Platelet Volume 9.1 fL (9.4-12.3); Monocytes Absolute Auto 0.7 X10*3/uL (0.1-1.2); Monocytes Percent Auto 10.3 % (2-11); Neutrophils Absolute Auto 4.3 x10*3/uL (2.0-8.3); Neutrophils Percent Auto 60.7 % (45-73); Platelet Count 254 X10*3/uL (160-400); Red Blood Count 3.82 X10*6/uL (4.20-5.50); Red Cell Distribution Width 12.6 % (11.0-16.0)
[2023-12-15] MEDS: vancomycin HCL 1,000 MG in 0.9 % Sodium Chloride 250 ML 270 MG IV (05:54)
[2023-12-15 06:13] LABS: Anion Gap 10 (12-20); Blood Urea Nitrogen 6 mg/dL (9-16); Calcium 8.6 mg/dL (8.4-10.2); Carbon Dioxide 25 mmol/L (22-29); Chloride 104 mmol/L (96-108); Creatinine Clr Calc Pharmacy 91.1; Estimated Glomerular Filt Rate > 60; Glucose Random 225 mg/dL (60-115); Potassium 3.5 mmol/L (3.3-5.1); Sodium 135 mmol/L (135-145)
--- NOTE | 2023-12-15 06:31 | PC.NURSE ---
patient with 10/10headache, she stated tylenol did not help her. She is asking for a different medication for migraine. MD Yosef Carvajal notified, awaiting response.
[2023-12-15 07:37] LABS: Estimated Average Glucose 355 mg/dL
[2023-12-15 07:42] VITALS: BP 133/68; PULSE 79; RESP 16; TEMP 36.1; O2SAT 99
[2023-12-15 08:10] LABS: Glucose, Whole Blood 214 mg/dL (60-115)
[2023-12-15] MEDS: Insulin Lispro 100 UNIT/ML 3 ML VIAL SUBCUT ×4 (08:13→20:28)
--- NOTE | 2023-12-15 09:20 | MHC.CM.PN ---
Patient lives at home with daughter. Functionally independent. Employed. Denies use of services or DME. PCP Marisel Ojeda MD HCP completed. Patient named daughter Vaishnavi as HCA. DP: Goal is home self care, daughter to transport. MRI pending. If + osteo, will await ID consult. CM will continue to follow.
[2023-12-15] MEDS: SUMAtriptan succinate 25 MG TABLET PO (09:45)
[2023-12-15 11:43] LABS: Glucose, Whole Blood 173 mg/dL (60-115)
[2023-12-15] MEDS: ondansetron HCL 4 MG/2 ML VIAL IVPUSH (12:22)
--- NOTE | 2023-12-15 13:35 | HO.PM.IMPN ---
Subjective Subjective Date of Service: 12/15/23 Interval History: dm foot Review of Systems foot cellulitis are seems similar no fevers Physical Exam Vital Signs: Vital Signs: Last Vital Signs Temp 96.9 F 12/15/23 07:42 Pulse 79 12/15/23 07:42 Resp 16 12/15/23 07:42 BP 133/68 12/15/23 07:42 Pulse Ox 99 12/15/23 07:42 O2 Del Method Room Air 12/15/23 07:42 BMI result Body Mass Index 32.3 Appearance: Alert.? Oriented X3. cvs: rrr, [id number] , no murmur res: clear to auscultation ,no rhonchii or wheezing abd: no rebound or guarding ,nt, bs present. ext :left tow shallow ulcer -seems similar ,has some forefoot erythema some dark discoluration at bottom of big toe. neuro: axo3 , nonfocal. Objective Data Active Medications Acetaminophen (Acetaminophen 325 Mg Tablet) 650 mg PO Q6H PRN PRN Reason: Pain, Mild (Pain Scale 1-3) Last Admin: 12/14/23 23:37 Dose: 650 mg Documented By: CAROLINA Enoxaparin Sodium (Enoxaparin Sodium 40 Mg/0.4 Ml Syringe) 40 mg SUBCUT Q24H [facility] Last Admin: 12/14/23 21:13 Dose: 40 mg Documented By: VERNON Glucose (Glucose Gel 15 Gm Gel..Gram.) 15 gm PO Q15M PRN; Protocol PRN Reason: per Hypoglycemia Standing Ord. Piperacillin Sod/Tazobactam (Sod 4.5 gm/ Sodium Chloride) 100 mls @ 200 mls/hr IV Q6H [facility] Last Infusion: 12/15/23 08:59 Dose: Infused Documented By: BELKIS Dextrose (D10) 250 mls @ 750 mls/hr IV Q15M PRN; Protocol PRN Reason: per Hypoglycemia Standing Ord. Vancomycin HCl 1,000 mg/ (Sodium Chloride) 270 mls @ 270 mls/hr IV Q12H [facility] Last Infusion: 12/15/23 06:54 Dose: Infused Documented By: BELKIS Insulin Glargine (Insulin Glargine,Hum.Rec.Anlog 100 Unit/Ml 10 Ml Vial) 19 unit SUBCUT BEDTIME [facility] Last Admin: 12/14/23 21:12 Dose: 19 unit Documented By: VERNON Insulin Human Lispro (Insulin Lispro 100 Unit/Ml 3 Ml Vial) 0 unit SUBCUT QIDACHS [facility]; Protocol Last Admin: 12/15/23 11:52 Dose: 2 unit Documented By: BELKIS Magnesium Hydroxide (Milk Of Magnesia 30 Ml Oral.Susp) 30 ml PO DAILY PRN PRN Reason: Constipation Ondansetron HCl (Ondansetron Hcl 4 Mg/2 Ml Vial) 4 mg IVPUSH Q8H PRN PRN Reason: Nausea and Vomiting Last Admin: 12/15/23 12:22 Dose: 4 mg Documented By: BELKIS Pharmacy Consult (Consult Rx Vancomycin Dosing) 1 each MISCELLANE DAILY PRN PRN Reason: Consult order Simethicone (Simethicone 80 Mg Tab.Chew) 160 mg PO QID PRN PRN Reason: Gastric Reflux Sodium Chloride (0.9 % Sodium Chloride Flush 3 Ml Syringe) 3 ml IVFLUSH [facility] Last Admin: 12/15/23 07:17 Dose: 3 ml Documented By: BELKIS Sumatriptan Succinate (Sumatriptan Succinate 25 Mg Tablet) 25 mg PO DAILY PRN PRN Reason: Headache Last Admin: 12/15/23 09:45 Dose: 25 mg Documented By: BELKIS Labs 12/15/23 05:32 12/15/23 05:32 Labs: Laboratory Results - last 24 hr 12/14/23 12/14/23 12/14/23 15:44 17:49 20:36 MCV 81.3 MCH 27.8 MCHC 34.2 RDW 12.5 Plt Count 308 MPV 9.0 L Immature Gran % (Auto) 0.9 H Neut % (Auto) 70.4 Lymph % (Auto) 18.3 L [place] % (Auto) 9.7 Eos % (Auto) 0.4 Baso % (Auto) 0.3 Lymph # (Auto) 1.8 [place] # (Auto) 0.9 Eos # (Auto) 0.0 Baso # (Auto) 0.0 Abs Immat Gran (auto) 0.09 H Absolute Neuts (auto) 6.7 Absolute Nucleated RBC 0.000 Nucleated RBC % (auto) 0.0 ESR 73 H Anion Gap 11 L Estim Creat Clear Calc 81.4 Estimated GFR > 60 POC Glucose 255 H Random Glucose 357 H* Estimat Average Glucose Hemoglobin A1c % Lactic Acid 0.9 Calcium 9.6 Magnesium 1.7 Total Bilirubin 0.7 AST 13 ALT 17 Alkaline Phosphatase 175 H C-Reactive Protein 8.49 H Total Protein 7.7 Albumin 3.8 Lipase 18 12/15/23 12/15/23 12/15/23 05:32 08:05 11:39 MCV 81.7 MCH 27.2 MCHC 33.3 RDW 12.6 Plt Count 254 MPV 9.1 L Immature Gran % (Auto) 1.0 H Neut % (Auto) 60.7 Lymph % (Auto) 26.7 [place] % (Auto) 10.3 Eos % (Auto) 0.9 Baso % (Auto) 0.4 Lymph # (Auto) 1.9 [place] # (Auto) 0.7 Eos # (Auto) 0.1 Baso # (Auto) 0.0 Abs Immat Gran (auto) 0.07 H Absolute Neuts (auto) 4.3 Absolute Nucleated RBC 0.000 Nucleated RBC % (auto) 0.0 ESR Anion Gap 10 L Estim Creat Clear Calc 91.1 Estimated GFR > 60 POC Glucose 214 H 173 H Random Glucose 225 H Estimat Average Glucose 355 Hemoglobin A1c % 14.0 H Lactic Acid Calcium 8.6 D Magnesium Total Bilirubin AST ALT Alkaline Phosphatase C-Reactive Protein Total Protein Albumin Lipase Assessment and Plan (1) Diabetic foot infection: Status: Acute Assessment and Plan: 58-year-old female with history of insulin-dependent type 2 diabetes, hyperlipidemia, history of asthma admitted for further management of cellulitis of the left foot in uncontrolled type 2 diabetic cellulitis of the left foot in uncontrolled type 2 diabetic -no leukocytosis. No sepsis CRP 8, ESR 73. MRI of the left foot has some discoluration on bottom of left big toe(poa)-please see pic h&P. continue IV vancomycin and Zosyn (initiated 12/13),doppler arterial left LE vascular eval,consider Infectious Disease consult ,distribution technician follow CBC, cultures pseudo hyponatremia:resolved. insulin-dependent type 2 diabetes with hyperglycemia: improving -hemoglobin A1c 14 -POC glucose, diabetic diet -Humalog on sliding scale, dose adjusted basal insulin hyperlipidemia -continue statin mild intermittent asthma -no acute exacerbation, albuterol p.r.n. Overweight: Encouraged to lose weight, cutdown calories. DVT prophylaxis-Lovenox Full code ongoing hospitlisation need: cellulitis of the left foot with elevated inflammatory markers concerning for possible osteomyelitis, in patient with uncontrolled type 2 diabetes, IV antibiotics, close monitoring of hemodynamics and cultures,renal function /electrolytes monitering Quality Stroke Does the patient have a stroke diagnosis?: No VTE Prior VTE?: No VTE Risk Level:: Medical - moderate - high VTE Device Contraindication: Treatment Not Indicated VTE Drug Contraindication: N/A - Med Ordered
--- NOTE | 2023-12-15 14:34 | HO.WOUND ---
Wound Consult: Initial 58yr old [place] [facility] See progress notes and H&P for detailed history.? Wound consult placed for Left great toe Diabetic Wound.? Patient agreeable to assessment and photo documentation.? Left Leg Left Great Toe -Posterior Left Great Toe Etiology: ??Diabetic Wound Wound Bed: thick epidermal layers trapping drainage - will benefit from debridement to minimize trapping drainage and allow for proper wound care. Drainage / Odor: No odor noted - creamy serosang drainage able to be expressed from anterior and posterior portions. Edges: ? irregular and nonadherent Marisol wound: ?Red erythema, warm, +swelling, +PP appears to be red macular rash on vincent, Fluctuance noted to posterior toe pad Pain: painful to touch Goals of Treatment: ?Moisture management and autolytic debridement with Dirafiber AG TT with Dr. Rosa and Dr. Li for assessment for debridement for trapping of drainage - Dr. Li to see and is already consulted. Recommendations: 1. Turn and Reposition every 2 hours and as needed for patient comfort.? Use pillows or wedges to support off loading positions. 2. Off Load all bony prominences with use of pillows and heel boots if needed.? Apply Preventative foams where needed. ? 3. Monitor for incontinence and moisture control, use barrier creams when needed for prevention and treatment. 4. Provide adequate and supplemental nutrition.? 5. Order or Continue low air loss mattress. 6. Maintain blood glucose levels per Providers order. 7. Left Great Toe - Elevate foot / heel off of bed surface with pillows. Cleanse with NS moist gauze, apply cut to size Durafiber AG, cover with dry gauze, and wrap. Change every other day. recommend the following follow up: Out patient Wound Clinic at [address] [place] [address] and to call for an appointment at time of discharge. [phone].? Dr. Li Vascular Surgeon for outpatient follow up.? His office is located at [address] [place] [address] [id number], [place] [address], call for an appointment at time of discharge [phone] Re-consult wound care Nurse for wound deterioration or wound changes.
[2023-12-15 15:02] VITALS: BP 152/81; PULSE 77; RESP 16; TEMP 36.6; O2SAT 98
[2023-12-15 16:15] LABS: Glucose, Whole Blood 219 mg/dL (60-115)
[2023-12-15 16:43] LABS: Vancomycin Random 9.5 mcg/mL (15-20)
[2023-12-15] MEDS: gadobutroL 7.5 ML VIAL IVPUSH (17:58)
[2023-12-15] MEDS: vancomycin HCL 1,500 MG in 0.9 % Sodium Chloride 500 ML 333.33 MG IV (18:28)
[2023-12-15] MEDS: Enoxaparin Sodium 40 MG/0.4 ML SYRINGE SUBCUT (19:15)
[2023-12-15] MEDS: Butalb/Acetamin/Caff 50/325/40 TABLET 1 TAB PO (19:15)
[2023-12-15 20:08] LABS: Glucose, Whole Blood 191 mg/dL (60-115)
[2023-12-15] MEDS: Insulin Glargine,Hum.rec.anlog 100 UNIT/ML 10 ML VIAL 25 UNIT SUBCUT (20:28)
[2023-12-15 23:39] VITALS: BP 136/70; PULSE 78; RESP 16; TEMP 36.2; O2SAT 94
[2023-12-16] MEDS: Piperacillin Sodium/Tazobactam 4.5 GM in 0.9 % Sodium Chloride 100 ML IV ×4 (03:24→20:43)
[2023-12-16] MEDS: vancomycin HCL 1,500 MG in 0.9 % Sodium Chloride 500 ML 333.33 MG IV (06:16)
[2023-12-16 07:00] LABS: Creatinine Clr Calc Pharmacy 91.1; Estimated Glomerular Filt Rate > 60
[2023-12-16 07:28] LABS: Glucose, Whole Blood 124 mg/dL (60-115)
[2023-12-16] MEDS: 0.9 % Sodium Chloride Flush 3 ML SYRINGE IVFLUSH ×3 (07:28→19:27)
[2023-12-16 08:00] VITALS: BP 114/56; PULSE 83; RESP 16; TEMP 36.1; O2SAT 98
[2023-12-16] MEDS: Atorvastatin Calcium 40 MG TABLET PO ×2 (09:05→20:42)
[2023-12-16] MEDS: Cholecalciferol (Vitamin D3) 25 MCG TABLET PO (09:05)
[2023-12-16 11:22] LABS: Glucose, Whole Blood 298 mg/dL (60-115)
--- NOTE | 2023-12-16 11:27 | MHC.CM.PN ---
PLAN IS FOR VASCULAR CONSULT ON Wednesday12/17/23
[2023-12-16] MEDS: Insulin Lispro 100 UNIT/ML 3 ML VIAL SUBCUT ×3 (11:31→20:42)
[2023-12-16 15:24] VITALS: BP 138/72; PULSE 92; RESP 18; TEMP 36.3; O2SAT 99
--- NOTE | 2023-12-16 15:25 | HO.PM.IMPN ---
Subjective Subjective Date of Service: 12/16/23 Interval History: dm foot Review of Systems foot ulcer area seems similar no fevers Physical Exam Vital Signs: Vital Signs: Last Vital Signs Temp 97 F 12/16/23 08:00 Pulse 83 12/16/23 08:00 Resp 16 12/16/23 08:00 BP 114/56 L 12/16/23 08:00 Pulse Ox 98 12/16/23 08:00 O2 Del Method Room Air 12/16/23 08:00 BMI result Body Mass Index 32.3 Appearance: Alert.? Oriented X3. cvs: rrr, [id number] , no murmur res: clear to auscultation ,no rhonchii or wheezing abd: no rebound or guarding ,nt, bs present. ext : has pulses ,left tow shallow ulcer -seems similar ,has some forefoot erythema some dark discoluration at bottom of big toe. neuro: axo3 , nonfocal. Objective Data Active Medications Acetaminophen/Butalbital/Caffeine (Butalb/Acetamin/Caff 50/325/40 Tablet) 1 tab PO Q4H PRN PRN Reason: Headache Atorvastatin Calcium (Atorvastatin Calcium 40 Mg Tablet) 40 mg PO BEDTIME [facility] Last Admin: 12/16/23 09:05 Dose: 40 mg Documented By: BELKIS Enoxaparin Sodium (Enoxaparin Sodium 40 Mg/0.4 Ml Syringe) 40 mg SUBCUT Q24H [facility] Last Admin: 12/15/23 19:15 Dose: 40 mg Documented By: TONY Glucose (Glucose Gel 15 Gm Gel..Gram.) 15 gm PO Q15M PRN; Protocol PRN Reason: per Hypoglycemia Standing Ord. Piperacillin Sod/Tazobactam (Sod 4.5 gm/ Sodium Chloride) 100 mls @ 200 mls/hr IV Q6H [facility] Last Admin: 12/16/23 14:48 Dose: 200 mls/hr Documented By: BELKIS Dextrose (D10) 250 mls @ 750 mls/hr IV Q15M PRN; Protocol PRN Reason: per Hypoglycemia Standing Ord. Vancomycin HCl 1,500 mg/ (Sodium Chloride) 500 mls @ 333.333 mls/hr IV Q12H [facility] Last Infusion: 12/16/23 07:52 Dose: Infused Documented By: BELKIS Insulin Glargine (Insulin Glargine,Hum.Rec.Anlog 100 Unit/Ml 10 Ml Vial) 25 unit SUBCUT BEDTIME [facility] Last Admin: 12/15/23 20:28 Dose: 25 unit Documented By: TONY Insulin Human Lispro (Insulin Lispro 100 Unit/Ml 3 Ml Vial) 0 unit SUBCUT QIDACHS [facility]; Protocol Last Admin: 12/16/23 11:31 Dose: 6 unit Documented By: BELKIS Magnesium Hydroxide (Milk Of Magnesia 30 Ml Oral.Susp) 30 ml PO DAILY PRN PRN Reason: Constipation Ondansetron HCl (Ondansetron Hcl 4 Mg/2 Ml Vial) 4 mg IVPUSH Q8H PRN PRN Reason: Nausea and Vomiting Last Admin: 12/15/23 12:22 Dose: 4 mg Documented By: BELKIS Pharmacy Consult (Consult Rx Vancomycin Dosing) 1 each MISCELLANE DAILY PRN PRN Reason: Consult order Simethicone (Simethicone 80 Mg Tab.Chew) 160 mg PO QID PRN PRN Reason: Gastric Reflux Sodium Chloride (0.9 % Sodium Chloride Flush 3 Ml Syringe) 3 ml IVFLUSH QSHIFT [facility] Last Admin: 12/16/23 14:53 Dose: 3 ml Documented By: BELKIS Sumatriptan Succinate (Sumatriptan Succinate 25 Mg Tablet) 25 mg PO DAILY PRN PRN Reason: Headache Last Admin: 12/15/23 09:45 Dose: 25 mg Documented By: BELKIS Vitamin D (Cholecalciferol (Vitamin D3) 25 Mcg Tablet) 25 mcg PO DAILY [facility] Last Admin: 12/16/23 09:05 Dose: 25 mcg Documented By: BELKIS Labs 12/15/23 05:32 12/16/23 06:08 Labs: Laboratory Results - last 24 hr 12/15/23 12/15/23 12/15/23 16:03 16:06 20:00 Hold Purple Top Estim Creat Clear Calc Estimated GFR POC Glucose 219 H 191 H Random Vancomycin 9.5 L 12/16/23 12/16/23 12/16/23 06:08 07:06 11:10 Hold Purple Top SEE NOTE Estim Creat Clear Calc 91.1 Estimated GFR > 60 POC Glucose 124 H 298 H Random Vancomycin Microbiology Microbiology Results: Microbiology 12/14/23 17:49 Blood Culture - Preliminary Blood - Venous No growth after 24 hours. 12/14/23 15:44 Blood Culture - Preliminary Blood - Venous No growth after 24 hours. Assessment and Plan (1) Diabetic foot infection: Status: Acute Assessment and Plan: 58-year-old female with history of insulin-dependent type 2 diabetes, hyperlipidemia, history of asthma admitted for further management of cellulitis of the left foot in uncontrolled type 2 diabetic Acute osteomyelitis within the first distal phalanx of the left foot in uncontrolled type 2 diabetic -no leukocytosis. No sepsis CRP 8, ESR 73. MRI :Soft tissue irregularity with possible ulceration along the plantar aspect of the distal great toe with associated cellulitis. No abscess formation. Acute osteomyelitis within the first distal phalanx. has some discoluration on bottom of left big toe(poa)-please see pic h&P. doppler arterial left LE:Monophasic waveforms in the mid posterior tibial artery, atherosclerotic disease, otherwise no hemodynamically significant stenoses. continue IV vancomycin and Zosyn (initiated 12/13),cultures consider Infectious Disease consult ,gis web developer vascular eval. pseudo hyponatremia:resolved. insulin-dependent type 2 diabetes with hyperglycemia: improving -hemoglobin A1c 14 -POC glucose, diabetic diet -Humalog on sliding scale, dose adjusted basal insulin hyperlipidemia -continue statin mild intermittent asthma -no acute exacerbation, albuterol p.r.n. Overweight: Encouraged to lose weight, cutdown calories. DVT prophylaxis-Lovenox Full code ongoing hospitlisation need: cellulitis of the left foot with elevated inflammatory markers concerning for possible osteomyelitis, in patient with uncontrolled type 2 diabetes, IV antibiotics, close monitoring of hemodynamics and cultures,renal function /electrolytes monitering Quality Stroke Does the patient have a stroke diagnosis?: No VTE Prior VTE?: No VTE Risk Level:: Medical - moderate - high VTE Device Contraindication: Treatment Not Indicated VTE Drug Contraindication: N/A - Med Ordered
[2023-12-16 16:26] LABS: Glucose, Whole Blood 181 mg/dL (60-115)
[2023-12-16 16:53] LABS: Vancomycin Random 17.2 mcg/mL (15-20)
[2023-12-16] MEDS: vancomycin HCL 1,250 MG in 0.9 % Sodium Chloride 250 ML 166.67 MG IV (17:44)
[2023-12-16] MEDS: Butalb/Acetamin/Caff 50/325/40 TABLET 1 TAB PO (19:27)
[2023-12-16] MEDS: Enoxaparin Sodium 40 MG/0.4 ML SYRINGE SUBCUT (19:27)
[2023-12-16 20:03] LABS: Glucose, Whole Blood 266 mg/dL (60-115)
[2023-12-16] MEDS: ondansetron HCL 4 MG/2 ML VIAL IVPUSH (20:42)
[2023-12-16] MEDS: Insulin Glargine,Hum.rec.anlog 100 UNIT/ML 10 ML VIAL 25 UNIT SUBCUT (20:43)
[2023-12-16 23:40] VITALS: BP 114/56; PULSE 80; RESP 18; TEMP 36.4; O2SAT 95
[2023-12-17] MEDS: Piperacillin Sodium/Tazobactam 4.5 GM in 0.9 % Sodium Chloride 100 ML IV ×2 (03:27→09:08)
[2023-12-17] MEDS: vancomycin HCL 1,250 MG in 0.9 % Sodium Chloride 250 ML 166.67 MG IV (06:15)
[2023-12-17 06:43] LABS: Creatinine Clr Calc Pharmacy 73.4; Estimated Glomerular Filt Rate > 60
[2023-12-17 07:29] LABS: Glucose, Whole Blood 108 mg/dL (60-115)
[2023-12-17 07:44] VITALS: BP 120/64; PULSE 81; RESP 16; TEMP 36.8; O2SAT 97
[2023-12-17] MEDS: Cholecalciferol (Vitamin D3) 25 MCG TABLET PO (09:07)
[2023-12-17] MEDS: 0.9 % Sodium Chloride Flush 3 ML SYRINGE IVFLUSH ×3 (09:13→21:44)
--- NOTE | 2023-12-17 09:51 | P.CONGS_ITS ---
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 About a week prior she had done some toenail clipping. She noticed some erythema and drainage from that site. She continued to work and after shift she then returned to the emergency room. Upon admission she was found to have ulcer with drainage. She now presents for evaluation of her great toe. Review of Systems 2 Review of Systems: Yes all other systems are reviewed and are negative Constitutional: Constitutional: Reports no additional constitutional complaints ENT: Reports Normal hearing present Cardiovascular: Cardiovascular: Denies chest pain, Denies chest pain at rest, Denies chest pain with activity and Denies pedal edema Respiratory: Respiratory: Denies cough Gastrointestinal: Gastrointestinal: Denies abdominal pain Musculoskeletal: Musculoskeletal: Denies abnormal gait, Denies muscle cramps and Denies radiating pain into limb Integumentary/Breasts: Skin/Breast: Denies skin ulcer and Denies wounds Neurologic: Reports Normal hearing present and Denies abnormal gait Psychiatric: Psychiatric: Reports no additional psychiatric complaints [facility] Past Medical History Medical History (Updated 12/14/23 @ 19:53 by JENNIFER Aguirre) Asthma Hyperlipidemia Type 2 diabetes mellitus Social History Social History Household Members: Children Housing: Apartment Do you presently have visiting nurse or other home services: No Patient Tobacco Use Status: Never used Tobacco service: No Meds Allergies Allergy/AdvReac Type Severity Reaction Status Date / Time dulaglutide [From [facility]] Allergy Unknown Unknown Verified 12/14/23 15:10 doxycycline AdvReac Chest Pain Verified 12/14/23 15:10 ibuprofen AdvReac Chest Pain Verified 12/14/23 15:10 Active Medications: Current Medications Acetaminophen/Butalbital/Caffeine (Butalb/Acetamin/Caff 50/325/40 Tablet) 1 tab PO Q4H PRN PRN Reason: Headache Last Admin: 12/16/23 19:27 Dose: 1 tab Atorvastatin Calcium (Atorvastatin Calcium 40 Mg Tablet) 40 mg PO BEDTIME [facility] Last Admin: 12/16/23 20:42 Dose: 40 mg Enoxaparin Sodium (Enoxaparin Sodium 40 Mg/0.4 Ml Syringe) 40 mg SUBCUT Q24H [facility] Last Admin: 12/16/23 19:27 Dose: 40 mg Glucose (Glucose Gel 15 Gm Gel..Gram.) 15 gm PO Q15M PRN; Protocol PRN Reason: per Hypoglycemia Standing Ord. Piperacillin Sod/Tazobactam (Sod 4.5 gm/ Sodium Chloride) 100 mls @ 200 mls/hr IV Q6H [facility] Last Admin: 12/17/23 09:08 Dose: 100 mls/hr Dextrose (D10) 250 mls @ 750 mls/hr IV Q15M PRN; Protocol PRN Reason: per Hypoglycemia Standing Ord. Vancomycin HCl 1,250 mg/ (Sodium Chloride) 250 mls @ 166.667 mls/hr IV Q12H [facility] Last Infusion: 12/17/23 09:16 Dose: Infused Insulin Glargine (Insulin Glargine,Hum.Rec.Anlog 100 Unit/Ml 10 Ml Vial) 25 unit SUBCUT BEDTIME [facility] Last Admin: 12/16/23 20:43 Dose: 25 unit Insulin Human Lispro (Insulin Lispro 100 Unit/Ml 3 Ml Vial) 0 unit SUBCUT QIDACHS [facility]; Protocol Last Admin: 12/17/23 07:45 Dose: Not Given Magnesium Hydroxide (Milk Of Magnesia 30 Ml Oral.Susp) 30 ml PO DAILY PRN PRN Reason: Constipation Ondansetron HCl (Ondansetron Hcl 4 Mg/2 Ml Vial) 4 mg IVPUSH Q8H PRN PRN Reason: Nausea and Vomiting Last Admin: 12/16/23 20:42 Dose: 4 mg Pharmacy Consult (Consult Rx Vancomycin Dosing) 1 each MISCELLANE DAILY PRN PRN Reason: Consult order Simethicone (Simethicone 80 Mg Tab.Chew) 160 mg PO QID PRN PRN Reason: Gastric Reflux Sodium Chloride (0.9 % Sodium Chloride Flush 3 Ml Syringe) 3 ml IVFLUSH QSHIFT [facility] Last Admin: 12/17/23 09:13 Dose: 3 ml Sumatriptan Succinate (Sumatriptan Succinate 25 Mg Tablet) 25 mg PO DAILY PRN PRN Reason: Headache Last Admin: 12/15/23 09:45 Dose: 25 mg Vitamin D (Cholecalciferol (Vitamin D3) 25 Mcg Tablet) 25 mcg PO DAILY [facility] Last Admin: 12/17/23 09:07 Dose: 25 mcg Home Medications ?Medication ?Instructions ?Recorded ?Confirmed ?Last Taken ?Type atorvastatin 40 mg tablet 40 mg PO BEDTIME 12/14/23 12/14/23 Unknown History cholecalciferol (vitamin D3) 25 25 mcg PO DAILY 12/14/23 12/14/23 Unknown History mcg (1,000 unit) capsule (Vitamin D3) insulin glargine 100 unit/mL (3 25 unit subcut BID 12/14/23 12/14/23 11/30/23 History mL) subcutaneous pen (Lantus Solostar U-100 Insulin) simethicone 180 mg capsule 180 mg PO QID PRN Gastric Reflux 12/14/23 12/14/23 12/12/23 History Physical Exam 2 Vital Signs: Vital Signs: Last Vital Signs Temp 98.2 F 12/17/23 07:44 Pulse 81 12/17/23 07:44 Resp 16 12/17/23 07:44 BP 120/64 12/17/23 07:44 Pulse Ox 97 12/17/23 07:44 O2 Del Method Room Air 12/17/23 07:44 BMI result Body Mass Index 32.3 Const: General: cooperative, healthy appearing and comfortable O rientation/consciousness: oriented to person, oriented to place and oriented to time HEENT: Head: Yes normal to inspection Neck: Neck: Yes normal visual inspection Carotids: no bruits Chest: Chest palpation & inspection: normal inspection of the chest Resp: Effort & Inspection: normal respiratory effort and able to speak in complete sentences Auscultation: clear to auscultation bilaterally, no crackles, no rales, no rhonchi and no wheezes Cardio: Rate: regular rate Rhythm: regular rhythm Heart sounds: S1 normal heart sound present and S2 normal heart sound present Bruits: no carotid bruits Peripheral pulses: Peripheral pulses 2+ throughout GI: Inspection: Yes normal to inspection Skin: Other: Left great toe blistering which was open. Underlying tissue relatively healthy with good granulation base Wounds: no wounds Hair: normal Neuro: General: oriented to person, oriented to place and oriented to time Cranial nerves: Yes CN's II-XII intact bilaterally and Yes Normal hearing present Cognition (Neuro): normal cognition Motor exam (neuro): 5/5 motor strength present throughout Extrem: Other: venous exam: Multiple large varicosities throughout the leg General: No clubbing, No cyanosis and Yes edema Psych: Appearance: grossly normal Mental Status: mental status grossly normal Speech and movement: Normal speech and movement present Results Labs 12/15/23 05:32 12/17/23 05:29 Labs: Abnormal lab results 12/16/23 12/16/23 12/16/23 Range/Units 11:10 16:17 19:49 POC Glucose 298 H 181 H 266 H (60-115) mg/dL BMP 12/17/23 05:29 Creatinine 0.82 All other labs normal. Assessment and Plan (1) Diabetic foot infection: Status: Acute Plan Patient does have a palpable arterial pulse. She does have on MRI positive for osteomyelitis. Would recommend local wound care and antibiotics per Infectious Disease. She can follow up with us as an outpatient. She does seem stable from an arterial standpoint but does have multiple varicosities which may need to be addressed at a later date. Thank you for allowing us to assist in her care. Procedures Date of Service Date of Service: 12/17/23
[2023-12-17 11:20] LABS: Glucose, Whole Blood 194 mg/dL (60-115)
[2023-12-17] MEDS: Insulin Lispro 100 UNIT/ML 3 ML VIAL SUBCUT ×3 (11:51→21:42)
--- NOTE | 2023-12-17 14:10 | PM.PROC ---
Brief Operative Note Date of procedure: 12/17/23 Pre-op diagnosis: Needs [facility]iary IV antibiotics Post-op diagnosis: same Procedure: RUE PICC Right basilic 45 cm dual lumen(PASV) PICC placed using US and Fluoro. Tip at cavoatrial junction. Ok for use. Anesthesia: local
[2023-12-17 14:39] VITALS: BP 148/78; PULSE 82; RESP 16; TEMP 36.3; O2SAT 97
--- NOTE | 2023-12-17 14:58 | P.PNIM_ITS ---
Subjective Subjective Date of Service: 12/17/23 Interval History: dm foot Review of Systems foot ulcer area seems similar no fevers Physical Exam 2 Vital Signs: Vital Signs: Last Vital Signs Temp 97.4 F 12/17/23 14:39 Pulse 82 12/17/23 14:39 Resp 16 12/17/23 14:39 BP 148/78 H 12/17/23 14:39 Pulse Ox 97 12/17/23 14:39 O2 Del Method Room Air 12/17/23 14:39 BMI result Body Mass Index 32.3 Appearance: Alert.? Oriented X3. cvs: rrr, [id number] , no murmur res: clear to auscultation ,no rhonchii or wheezing abd: no rebound or guarding ,nt, bs present. ext : has pulses ,left tow shallow ulcer -seems similar ,has some forefoot erythema some dark discoluration at bottom of big toe. neuro: axo3 , nonfocal. Objective Data Active Medications Acetaminophen/Butalbital/Caffeine (Butalb/Acetamin/Caff 50/325/40 Tablet) 1 tab PO Q4H PRN PRN Reason: Headache Last Admin: 12/16/23 19:27 Dose: 1 tab Documented By: TONY Atorvastatin Calcium (Atorvastatin Calcium 40 Mg Tablet) 40 mg PO BEDTIME [facility] Last Admin: 12/16/23 20:42 Dose: 40 mg Documented By: TONY Enoxaparin Sodium (Enoxaparin Sodium 40 Mg/0.4 Ml Syringe) 40 mg SUBCUT Q24H [facility] Last Admin: 12/16/23 19:27 Dose: 40 mg Documented By: TONY Glucose (Glucose Gel 15 Gm Gel..Gram.) 15 gm PO Q15M PRN; Protocol PRN Reason: per Hypoglycemia Standing Ord. Dextrose (D10) 250 mls @ 750 mls/hr IV Q15M PRN; Protocol PRN Reason: per Hypoglycemia Standing Ord. Meropenem 1 gm/ Sodium (Chloride) 100 mls @ 200 mls/hr IV Q8H [facility] Insulin Glargine (Insulin Glargine,Hum.Rec.Anlog 100 Unit/Ml 10 Ml Vial) 25 unit SUBCUT BEDTIME [facility] Last Admin: 12/16/23 20:43 Dose: 25 unit Documented By: TONY Insulin Human Lispro (Insulin Lispro 100 Unit/Ml 3 Ml Vial) 0 unit SUBCUT QIDACHS [facility]; Protocol Last Admin: 12/17/23 11:51 Dose: 2 unit Documented By: JANINE Magnesium Hydroxide (Milk Of Magnesia 30 Ml Oral.Susp) 30 ml PO DAILY PRN PRN Reason: Constipation Ondansetron HCl (Ondansetron Hcl 4 Mg/2 Ml Vial) 4 mg IVPUSH Q8H PRN PRN Reason: Nausea and Vomiting Last Admin: 12/16/23 20:42 Dose: 4 mg Documented By: TONY Simethicone (Simethicone 80 Mg Tab.Chew) 160 mg PO QID PRN PRN Reason: Gastric Reflux Sodium Chloride (0.9 % Sodium Chloride Flush 3 Ml Syringe) [facility] Last Admin: 12/17/23 09:13 Dose: 3 ml Documented By: JANINE Sumatriptan Succinate (Sumatriptan Succinate 25 Mg Tablet) 25 mg PO DAILY PRN PRN Reason: Headache Last Admin: 12/15/23 09:45 Dose: 25 mg Documented By: BELKIS Vitamin D (Cholecalciferol (Vitamin D3) 25 Mcg Tablet) 25 mcg PO DAILY [facility] Last Admin: 12/17/23 09:07 Dose: 25 mcg Documented By: JANINE Labs 12/15/23 05:32 12/17/23 05:29 Labs: Laboratory Results - last 24 hr 12/16/23 12/16/23 12/16/23 16:17 16:21 19:49 Hold Purple Top Estim Creat Clear Calc Estimated GFR POC Glucose 181 H 266 H Random Vancomycin 17.2 12/17/23 12/17/23 12/17/23 05:29 07:17 11:11 Hold Purple Top SEE NOTE Estim Creat Clear Calc 73.4 Estimated GFR > 60 POC Glucose 108 194 H Random Vancomycin Microbiology Microbiology Results: Microbiology 12/14/23 17:49 Blood Culture - Preliminary Blood - Venous No growth after 48 hours. 12/14/23 15:44 Blood Culture - Preliminary Blood - Venous No growth after 48 hours. Assessment and Plan (1) Diabetic foot infection: Status: Acute Plan 58-year-old female with history of insulin-dependent type 2 diabetes, hyperlipidemia, history of asthma admitted for further management of cellulitis of the left foot in uncontrolled type 2 diabetic Acute osteomyelitis within the first distal phalanx of the left foot in uncontrolled type 2 diabetic -no leukocytosis. No sepsis CRP 8, ESR 73. MRI :Soft tissue irregularity with possible ulceration along the plantar aspect of the distal great toe with associated cellulitis. No abscess formation. Acute osteomyelitis within the first distal phalanx. has some discoluration on bottom of left big toe(poa)-please see pic h&P. doppler arterial left LE:Monophasic waveforms in the mid posterior tibial artery, atherosclerotic disease, otherwise no hemodynamically significant stenoses. Plan: iD- patient need 6 week iv ertapenem -will keep on meropenem iv (started 12/17/23). d/w vascular outpatient,finish mixer vascular eval. pseudo hyponatremia:resolved. insulin-dependent type 2 diabetes with hyperglycemia: improving -hemoglobin A1c 14 -POC glucose, diabetic diet -Humalog on sliding scale, dose adjusted basal insulin hyperlipidemia -continue statin mild intermittent asthma -no acute exacerbation, albuterol p.r.n. Overweight: Encouraged to lose weight, cutdown calories. DVT prophylaxis-Lovenox Full code ongoing hospitlisation need: cellulitis of the left foot with elevated inflammatory markers concerning for possible osteomyelitis, in patient with uncontrolled type 2 diabetes, IV antibiotics, close monitoring of hemodynamics and cultures,renal function /electrolytes monitering Quality Stroke Does the patient have a stroke diagnosis?: No VTE Prior VTE?: No VTE Risk Level:: Medical - moderate - high VTE Device Contraindication: Treatment Not Indicated VTE Drug Contraindication: N/A - Med Ordered
[2023-12-17 15:07] VITALS: BP 152/75; PULSE 81; RESP 18; TEMP 36.4; O2SAT 96
--- NOTE | 2023-12-17 16:04 | MHC.CM.PN ---
Addendum entered by Edel Christiansen 12/18/23 10:49: ORDERS FAXED TO [facility] AT [phone] Original Note: PT WILL NEED 6 WEEKS OF IV ERTEPENEM AT DC REFERRAL MADE TO [facility], THEY WILL CONTACT DAUGHTER AND PT TO DO A VIRTUAL TEACH [employer] FOLLOWING AND AWARE PT MAY DC TOMORROW AND NEED SOC WEDNESDAY CM SPOKE TO PTS DAUGHTER, JAX, SHE EXPRESSES SOME CONCERN ABOUT NOT BEING ABLE TO MANAGE PTS MEDS, HOWEVER IS AWARE SHE WILL HAVE A TEACH AND THEN A NURSE ON WEDNESDAY TO REINFORCE THAT TEACH.
[2023-12-17 16:05] LABS: Glucose, Whole Blood 180 mg/dL (60-115)
[2023-12-17 16:49] LABS: Vancomycin Random 17.6 mcg/mL (15-20)
[2023-12-17] MEDS: Enoxaparin Sodium 40 MG/0.4 ML SYRINGE SUBCUT (19:24)
[2023-12-17 20:20] LABS: Glucose, Whole Blood 190 mg/dL (60-115)
[2023-12-17] MEDS: Atorvastatin Calcium 40 MG TABLET PO (21:39)
[2023-12-17] MEDS: Insulin Glargine,Hum.rec.anlog 100 UNIT/ML 10 ML VIAL 25 UNIT SUBCUT (21:40)
--- NOTE | 2023-12-17 22:40 | W.PM.IDCN ---
History of Present Illness Data of Consult Service Date: 12/17/23 Requesting physician: Whitney Rosa Primary Care Provider: Marisel Ojeda MD [facility] Reason for consult: right great toe OM She reportedly picked at right toe. She has swelling last week/ She has OM great toe. Review of Systems Review of Systems: Yes all other systems are reviewed and are negative [facility] Past Medical History Medical History Asthma Hyperlipidemia Type 2 diabetes mellitus Social History Social History Household Members: Children Housing: Apartment Do you presently have visiting nurse or other home services: No Patient Tobacco Use Status: Never used Tobacco service: No Meds Allergies Allergy/AdvReac Type Severity Reaction Status Date / Time dulaglutide [From [facility]] Allergy Unknown Unknown Verified 12/14/23 15:10 doxycycline AdvReac Chest Pain Verified 12/14/23 15:10 ibuprofen AdvReac Chest Pain Verified 12/14/23 15:10 Active Medications: Current Medications Acetaminophen/Butalbital/Caffeine (Butalb/Acetamin/Caff 50/325/40 Tablet) 1 tab PO Q4H PRN PRN Reason: Headache Last Admin: 12/16/23 19:27 Dose: 1 tab Atorvastatin Calcium (Atorvastatin Calcium 40 Mg Tablet) 40 mg PO BEDTIME [facility] Last Admin: 12/17/23 21:39 Dose: 40 mg Enoxaparin Sodium (Enoxaparin Sodium 40 Mg/0.4 Ml Syringe) 40 mg SUBCUT Q24H [facility] Last Admin: 12/17/23 19:24 Dose: 40 mg Glucose (Glucose Gel 15 Gm Gel..Gram.) 15 gm PO Q15M PRN; Protocol PRN Reason: per Hypoglycemia Standing Ord. Dextrose (D10) 250 mls @ 750 mls/hr IV Q15M PRN; Protocol PRN Reason: per Hypoglycemia Standing Ord. Meropenem 1 gm/ Sodium (Chloride) 100 mls @ 200 mls/hr IV Q8H [facility] Last Infusion: 12/17/23 22:09 Dose: Infused Insulin Glargine (Insulin Glargine,Hum.Rec.Anlog 100 Unit/Ml 10 Ml Vial) 25 unit SUBCUT BEDTIME [facility] Last Admin: 12/17/23 21:40 Dose: 25 unit Insulin Human Lispro (Insulin Lispro 100 Unit/Ml 3 Ml Vial) 0 unit SUBCUT QIDACHS [facility]; Protocol Last Admin: 12/17/23 21:42 Dose: 2 unit Magnesium Hydroxide (Milk Of Magnesia 30 Ml Oral.Susp) 30 ml PO DAILY PRN PRN Reason: Constipation Ondansetron HCl (Ondansetron Hcl 4 Mg/2 Ml Vial) 4 mg IVPUSH Q8H PRN PRN Reason: Nausea and Vomiting Last Admin: 12/16/23 20:42 Dose: 4 mg Simethicone (Simethicone 80 Mg Tab.Chew) 160 mg PO QID PRN PRN Reason: Gastric Reflux Sodium Chloride (0.9 % Sodium Chloride Flush 3 Ml Syringe) [facility] Admin: 12/17/23 21:44 Dose: 3 ml Sumatriptan Succinate (Sumatriptan Succinate 25 Mg Tablet) 25 mg PO DAILY PRN PRN Reason: Headache Last Admin: 12/15/23 09:45 Dose: 25 mg Vitamin D (Cholecalciferol (Vitamin D3) 25 Mcg Tablet) 25 mcg PO DAILY [facility] Last Admin: 12/17/23 09:07 Dose: 25 mcg Home Medications ?Medication ?Instructions ?Recorded ?Confirmed ?Last Taken ?Type atorvastatin 40 mg tablet 40 mg PO BEDTIME 12/14/23 12/14/23 Unknown History cholecalciferol (vitamin D3) 25 25 mcg PO DAILY 12/14/23 12/14/23 Unknown History mcg (1,000 unit) capsule (Vitamin D3) insulin glargine 100 unit/mL (3 25 unit subcut BID 12/14/23 12/14/23 11/30/23 History mL) subcutaneous pen (Lantus Solostar U-100 Insulin) simethicone 180 mg capsule 180 mg PO QID PRN Gastric Reflux 12/14/23 12/14/23 12/12/23 History Physical Exam Vital Signs: Vital Signs: Last Vital Signs Temp 97.5 F 12/17/23 15:07 Pulse 81 12/17/23 15:07 Resp 18 12/17/23 15:07 BP 152/75 H 12/17/23 15:07 Pulse Ox 96 12/17/23 15:07 O2 Del Method Room Air 12/17/23 15:07 BMI result Body Mass Index 32.3 Const: General: cooperative HEENT: Head: Yes normal to inspection Face and sinus: Yes normal facial exam Mouth: Normal oral and palatal mucosa present Teeth and gingiva: dentition normal Eyes: General: appearance normal, both eyes and all related structures Pupils: Equal, round and reactive pupils present Resp: Effort & Inspection: normal respiratory effort Cardio: Rate: regular rate Rhythm: regular rhythm GI: Palpation (GI): Soft to palpation and nontender : General: Yes no CVA tenderness Back/Spine/Pelvis: Back: no CVA tenderness Skin: General skin exam: no rashes or lesions noted Neuro: General: moves all extremities Cranial nerves: Yes Equal, round and reactive pupils present Extrem: Other: right great toe erythema Psych: Appearance: grossly normal Results Labs 12/15/23 05:32 12/17/23 05:29 Labs: BMP 12/17/23 05:29 Creatinine 0.82 Microbiology Microbiology Results: Microbiology 12/14/23 17:49 Blood - Venous Blood Culture - Preliminary No growth after 48 hours. 12/14/23 15:44 Blood - Venous Blood Culture - Preliminary No growth after 48 hours. Assessment and Plan (1) Diabetic foot infection: Status: Acute Plan There is possible staph or strep or gram negative. There is no MRSA seen so far. 6 weeks IV Ertapenem with weekly CBC and creatinine.
[2023-12-17 23:20] VITALS: BP 137/71; PULSE 87; RESP 18; TEMP 36.8; O2SAT 95
[2023-12-18 07:09] VITALS: BP 141/76; PULSE 78; RESP 16; TEMP 36; O2SAT 94
[2023-12-18 07:30] LABS: Glucose, Whole Blood 116 mg/dL (60-115)
[2023-12-18] MEDS: 0.9 % Sodium Chloride Flush 3 ML SYRINGE IVFLUSH (07:53)
[2023-12-18] MEDS: Cholecalciferol (Vitamin D3) 25 MCG TABLET PO (07:53)
[2023-12-18 08:03] LABS: Creatinine Clr Calc Pharmacy 79.1; Estimated Glomerular Filt Rate > 60
[2023-12-18] MEDS: Ertapenem Sodium 1 GM in 0.9 % Sodium Chloride 50 ML IV (11:02)
--- NOTE | 2023-12-18 11:02 | P.DS_ITS ---
DS: Providers Provider Date of Service: 12/18/23 Date of admission: 12/14/23 19:04 Date of discharge: 12/18/23 Primary care physician: Marisel Ojeda MD Consults: 12/15/23 00:51 Consult to Wound Care Routine Reason for consultation: left great toe diabetic foot ulcer 12/15/23 13:40 Consult to Vascular Surgery Routine Consulting [place] [facility] Reason for consultation: dm foot ulcer ,has some dicoluration of big toe ?pvd Has provider been notified: No 12/17/23 07:26 Consult to Infectious Diseases Routine Consulting Provider[place] [facility] Reason for consultation: acute osteomyelitis Has provider been notified: No Attending physician on discharge: Whitney Rosa Discharging clinician: Whitney Rosa DS: Diagnosis Discharge Diagnosis (1) Diabetic foot infection: Status: Acute DS: Summary Hospital Course Hospital Course: 58-year-old female with history of insulin-dependent type 2 diabetes, hyperlipidemia, history of asthma presented to the ED earlier today for evaluation of an infection of the left great toe. She reports about 8 days ago she was cutting her toenails when she accidentally cut some of the lateral nail fold. Three days ago noticed swelling, erythema, and warmth around the area that has gotten progressively worse. Denies any fevers, chills, purulent drai nage. She is able to ambulate but does report discomfort in the toe. She denies any history of diabetic foot infection. On arrival, patient tachycardic to 104 but afebrile. No hypotension. There is no leukocytosis. Renal function normal, electrolyte levels normal except for sodium 132. Glucose is elevated at 357. Lactic acid is 0.9. CRP 8.49, ESR 73. X-ray of the left ankle, left foot, and left tibia/fibula pending. In the ED, has been started on IV vancomycin and Zosyn. She will be admitted for further evaluation management of diabetic foot infection. Hospital course: Patient was admitted to the hospital because of diabetic foot infection-CRP of 8, ESR 73, no leukocytosis, blood cultures sent, started on IV antibiotic, MRI of foot done which showedAcute osteomyelitis within the first distal phalanx, also left lower extremity arterial Doppler study done and showed:Monophasic waveforms in the mid posterior tibial artery, atherosclerotic disease, otherwise no hemodynamically significant stenoses. Patient seen by vascular surgery also: Patient has good pulses, recommended IV antibiotics for osteomyelitis, from arterial standpoint but does have multiple varicosities -patient is to follow up outpatient with vascular. Discussed with infectious disease patient will need ertapenem for 6 weeks-PICC line placed, IV ertapenem 1 g daily ordered-end date of antibiotics is01/27/24. Consider monitoring CBC, BMP, LFTs, ESR, CRP Q weekly while on IV antibiotics. Follow-up outpatient with wound care and vascular. Patient will be going home with services. plan: continue ertapenem for 6 weeks-PICC line placed, IV ertapenem 1 g daily ordered- end date of antibiotics is01/27/24. Above management discussed with the patient in detail length she understand and in agreement with the above plan, time spent 40 minute. Time Attestation Total time managing care of this patient today: 40 mintues. Discharge Coordination Time (in mins): 40 min Quality: Safe Use of Opioids Does Pt have an Active Cancer Diagnosis on the Problem List?: No Quality: Stroke Does the patient have a stroke diagnosis?: No Physical Exam Vital Signs: Vital Signs: Last Vital Signs Temp 96.8 F 12/18/23 07:09 Pulse 78 12/18/23 07:09 Resp 16 12/18/23 07:09 BP 141/76 H 12/18/23 07:09 Pulse Ox 94 12/18/23 07:09 O2 Del Method Room Air 12/18/23 07:09 BMI result Body Mass Index 32.3 Appearance: Alert.? Oriented X3. cvs: rrr, [id number] , no murmur res: clear to auscultation ,no rhonchii or wheezing abd: no rebound or guarding ,nt, bs present. ext : has pulses ,left tow shallow ulcer -improving ,foot erythema improved. some dark discoluration at bottom of big toe. neuro: axo3 , nonfocal. DS: Data Data Completed and Pending Labs on day of discharge: Laboratory Results - last 24 hr 12/17/23 12/17/23 12/17/23 11:11 15:58 16:00 Hold Purple Top Creatinine Estim Creat Clear Calc Estimated GFR POC Glucose 194 H 180 H Random Vancomycin 17.6 12/17/23 12/18/23 12/18/23 20:11 05:32 07:08 Hold Purple Top SEE NOTE Creatinine 0.76 Estim Creat Clear Calc 79.1 Estimated GFR > 60 POC Glucose 190 H 116 H Random Vancomycin Preliminary micro results at discharge 12/14/23 17:49 Blood Culture - Preliminary Blood - Venous No growth after 48 hours. 12/14/23 15:44 Blood Culture - Preliminary Blood - Venous No growth after 48 hours. Imaging Chest x-ray: Radiologist's impression: ITS Impressions Ankle X-Ray 12/14/23 16:10 IMPRESSION: 1. No fracture, dislocation or left ankle joint effusion is seen. 2. There are tiny posterior and small plantar left calcaneal spurs. 3. No focal bone erosion, periosteal thickening or soft tissue gas is seen to suggest focal osteomyelitis. Foot X-Ray 12/14/23 16:10 IMPRESSION: 1. No fracture, dislocation or left ankle joint effusion is seen. 2. There are tiny posterior and small plantar left calcaneal spurs. 3. No focal bone erosion, periosteal thickening or soft tissue gas is seen to suggest focal osteomyelitis. Tibia/Fibula X-Ray 12/14/23 16:10 IMPRESSION: Normal left tibia and fibula. Duplex Scan Lower Extremity Artery 12/15/23 09:03 IMPRESSION: Monophasic waveforms in the mid posterior tibial artery, atherosclerotic disease, otherwise no hemodynamically significant stenoses. Foot MRI 12/15/23 17:57 IMPRESSION: 1. Soft tissue irregularity with possible ulceration along the plantar aspect of the distal great toe with associated cellulitis. No abscess formation. Acute osteomyelitis within the first distal phalanx. 2. Mild osteoarthritis at the first metatarsophalangeal joint and hallux sesamoids. Partially visualized osteoarthritis at the second and third tarsometatarsal joints. 3. Edema throughout the intrinsic musculature of the foot which can be seen in diabetic patients. 4. Prominent dorsal subcutaneous edema without enhancement or abscess formation. PICC Line Insertion 12/17/23 14:25 IMPRESSION: Placement of a 5 fr 45 cm, dual lumen power PICC PLAN: -The catheter may be used immediately. This procedure was performed by Khoa Mireles PA-C, and directly supervised by Dr. Olson Discharge Plan Discharge Anticipated Discharge Date/Time: 12/18/23 10:40 Patient Disposition: Home Health Service Discharge Diagnosis: Acute osteomyelitis of foot. Referrals: [facility] [Other] [facility] [Outside] - 1 Day Kaushik Li MD [Physician] - 1 Week Marisel Ojeda MD [Primary Care Provider] - 1 Week Discharge Medications: New ertapenem 1 gram recon soln 1 g IV DAILY Rx Instructions: patient need 1 gm ertapenem daily -end date is 01/27/24. Continued insulin glargine [Lantus Solostar U-100 Insulin] 100 unit/mL (3 mL) insulin pen 25 unit subcut BID cholecalciferol (vitamin D3) [Vitamin D3] 25 mcg (1,000 unit) Capsule 25 mcg PO DAILY simethicone 180 mg capsule 180 mg PO QID PRN (Reason: Gastric Reflux) atorvastatin 40 mg tablet 40 mg PO BEDTIME Discharge Orders: Discharge Order (Routine); Ordered 12/18/23 Ordered By: Whitney Rosa Diet: Advance to usual diet Activity on Discharge: As tolerated Stand Alone Forms: Patient Portal Discharge page Print Language: Palestinian Activity Restrictions/Additional Instructions: Topical wound care recommendations: Left Great Toe - Elevate foot / heel off of bed surface with pillows. Cleanse with NS moist gauze, apply cut to size Durafiber AG, cover with dry gauze, and wrap. Change every other day. Recommend the following follow up: Out patient [facility] at [address] [place] [address] and to call for an appointment at time of discharge. [phone].? Dr. Li Vascular Surgeon for outpatient follow up.? His office is located at [address] [place] [address] [address], [place] [address], call for an appointment at time of discharge [phone] Care Plan Goals: Patient was admitted to the hospital because of diabetic foot infection-CRP of 8, ESR 73, no leukocytosis, blood cultures sent, started on IV antibiotic, MRI of foot done which showedAcute osteomyelitis within the first distal phalanx, also left lower extremity arterial Doppler study done and showed:Monophasic waveforms in the mid posterior tibial artery, atherosclerotic disease, otherwise no hemodynamically significant stenoses. Patient seen by vascular surgery also: Patient has good pulses, recommended IV antibiotics for osteomyelitis, from arterial standpoint but does have multiple varicosities -patient is to follow up outpatient with vascular. Discussed with infectious disease patient will need ertapenem for 6 weeks-PICC line placed, IV ertapenem 1 g daily ordered-end date of antibiotics is01/27/24. Consider monitoring CBC, BMP, LFTs, ESR, CRP Q weekly while on IV antibiotics. Follow-up outpatient with wound care and vascular. Patient will be going home with services. Health Concerns: As above. Plan of Treatment: as above. Assessment: As above.
[2023-12-18 11:15] LABS: Glucose, Whole Blood 269 mg/dL (60-115)
--- NOTE | 2023-12-18 11:50 | P.F2F_ITS ---
Service Date Service Date: 12/18/23 Encounter Date of encounter: 12/18/23 Encounter: toe osteomyelitis Reasons for Services Signs and symptoms assessed: Pain or erythema or fever or drainage. Reason for long term: wound care, medication management, medication treatment and teach disease management MD Overseeing Care: Marisel Ojeda Homebound: Leaving the home is medically contraindicated at this time without the asist of a device and/or another person due th the listed conditions above and below. Reason homebound: weakness related to hospital stay Homebound supporting statement: Patient is generalized weak post hospitalization stay, has toe osteomyelitis and ulcer-need help with wound care, blood draws, appointments, disease management, IV antibiotics. Certification: Based on the above findings, I certify that this patient is confined to the home and needs intermittent long term care, physical therapy and/or speech therapy, or continues to need occupational therapy. The patient is under my care, and I have initiated the establishment of the plan of care. The patient will be followed by a physician who will periodically review the plan of care. Time Spent With Patient Time: Total time managing care of this patient today ____ minutes.
[2023-12-18] MEDS: Insulin Lispro 100 UNIT/ML 3 ML VIAL SUBCUT (11:51)
[2023-12-18 15:22] VITALS: BP 136/78; PULSE 82; RESP 18; TEMP 36.2; O2SAT 98
--- NOTE | 2023-12-18 15:25 | MHC.CM.PN ---
pts tutorial complerted with both the p=t and her dgter ,per tulio [phone] /[facility] meds will bhe delivered tonight and comfirmed with hvns that pt meds will be delivered tonight pts waiting for daughter to transport home
--- NOTE | 2023-12-18 15:44 | MHC.CM.PN ---
pts daughter to come between 430 and 5 to take pt home
[2023-12-18 16:03] LABS: Glucose, Whole Blood 139 mg/dL (60-115)
== END 2023-12-18 16:59 | disposition home health service (06) | DRG 344 ==
LOC: HO.ED 18:54 → HO.EDOVER 19:11 → HO.S3 12-15 00:08
PROVIDERS: Physician Assistant; Physician Assistant Medical; Admitting Provider Physician Assistant; Emergency Provider Internal Medicine; PCP Internal Medicine; Visit Provider Internal Medicine
DX: E11.628 Type 2 diabetes mellitus with other skin complications (principal); M86.172 Other acute osteomyelitis, left ankle and foot; L03.116 Cellulitis of left lower limb; E11.51 Type 2 diabetes mellitus with diabetic peripheral angiopathy without gangrene; E11.69 Type 2 diabetes mellitus with other specified complication; E78.5 Hyperlipidemia, unspecified; E11.65 Type 2 diabetes mellitus with hyperglycemia; J45.20 Mild intermittent asthma, uncomplicated; I83.92 Asymptomatic varicose veins of left lower extremity; L97.529 Non-pressure chronic ulcer of other part of left foot with unspecified severity; I70.245 Atherosclerosis of native arteries of left leg with ulceration of other part of foot; E66.3 Overweight; Z68.32 Body mass index [BMI] 32.0-32.9, adult; Z79.4 Long term (current) use of insulin; Z79.899 Other long term (current) drug therapy
CPT/HCPCS: 36415; 36573; 73590; 73610; 73630; 73720; 80048; 80053; 80202; 82565; 82947; 83036; 83605; 83690; 83735; 85025; 85652; 86140; 87040; 93926; 99285; A9585; J1335; J1650; J2185; J2405; J2543; J3370; J3371

== ENCOUNTER → 2023-12-14 19:04 | Outpatient (BNV) | payer OTHER, SELFPAY | PROVIDERS: Admitting Provider Physician Assistant; Emergency Provider Internal Medicine; PCP Internal Medicine; Visit Provider Internal Medicine | DX: E11.621 Type 2 diabetes mellitus with foot ulcer (principal); L97.516 Non-pressure chronic ulcer of other part of right foot with bone involvement without evidence of necrosis | CPT/HCPCS: 99222 ==

== ENCOUNTER → 2023-12-14 19:04 | Outpatient (BNV) | payer OTHER, SELFPAY | PROVIDERS: Admitting Provider Physician Assistant; Emergency Provider Internal Medicine; PCP Internal Medicine; Visit Provider Physician Assistant Surgical | DX: E11.628 Type 2 diabetes mellitus with other skin complications (principal); L08.9 Local infection of the skin and subcutaneous tissue, unspecified | CPT/HCPCS: 36573 ==

== ENCOUNTER → 2023-12-14 19:04 | Outpatient (BNV) | payer OTHER, SELFPAY | PROVIDERS: Admitting Provider Physician Assistant; Emergency Provider Internal Medicine; PCP Internal Medicine; Visit Provider Surgery Vascular Surgery | DX: E11.628 Type 2 diabetes mellitus with other skin complications (principal); L08.9 Local infection of the skin and subcutaneous tissue, unspecified | CPT/HCPCS: 99222 ==

== ENCOUNTER → 2023-12-14 19:04 | Outpatient (BNV) | payer OTHER, SELFPAY | PROVIDERS: Admitting Provider Physician Assistant; Emergency Provider Internal Medicine; PCP Internal Medicine; Visit Provider Physician Assistant | DX: E11.628 Type 2 diabetes mellitus with other skin complications (principal); L08.9 Local infection of the skin and subcutaneous tissue, unspecified | CPT/HCPCS: 99223; 99232; 99239; G0180 ==

== ENCOUNTER 2023-12-21 13:57 | Outpatient (REF) | payer OTHER, SELFPAY ==
[2023-12-21 14:04] LABS: MANUAL DIFF FLAG NO
[2023-12-21 14:13] LABS: Basophils Percent Auto 0.4 % (0-2); Eosinophils Absolute Auto 0.1 X10*3/uL (0.0-0.4); Eosinophils Percent Auto 0.9 % (0-4); Hematocrit 31.6 % (37.0-47.0); Hemoglobin 10.3 g/dl (12.0-16.0); Imm Gran Abs Auto 0.05 X10*3/uL (0.00-0.03); Imm Gran Pct Auto 0.6 % (0.0-0.4); Lymphocytes Absolute Auto 1.4 X10*3/uL (1.2-4.9); Lymphocytes Percent Auto 17.8 % (20-40); Mean Corpuscular HGB Conc 32.6 g/dl (31.0-35.0); Mean Corpuscular Hemoglobin 27.3 pg (27.0-33.0); Mean Corpuscular Volume 83.8 fL (80.0-98.0); Mean Platelet Volume 9.4 fL (9.4-12.3); Monocytes Absolute Auto 0.7 X10*3/uL (0.1-1.2); Monocytes Percent Auto 8.7 % (2-11); Neutrophils Absolute Auto 5.7 x10*3/uL (2.0-8.3); Neutrophils Percent Auto 71.6 % (45-73); Platelet Count 308 X10*3/uL (160-400); Red Blood Count 3.77 X10*6/uL (4.20-5.50); Red Cell Distribution Width 12.8 % (11.0-16.0); White Blood Count 7.9 X10*3/uL (4.8-10.8)
[2023-12-21 14:52] LABS: Erythrocyte Sedimentation Rate 83 MM/HR (0-20)
[2023-12-21 15:09] LABS: Anion Gap 12 (12-20); Blood Urea Nitrogen 14 mg/dL (9-16); C Reactive Protein 2.18 mg/dL (< or = 0.50); Calcium 9.2 mg/dL (8.4-10.2); Carbon Dioxide 26 mmol/L (22-29); Chloride 105 mmol/L (96-108); Estimated Glomerular Filt Rate > 60; Glucose Random 232 mg/dL (60-115); Potassium 4.8 mmol/L (3.3-5.1); Sodium 138 mmol/L (135-145)
== END 2023-12-21 13:58 | disposition home or self-care (01) ==
LOC: HO.HVNA 13:57
PROVIDERS: Visit Provider Internal Medicine
DX: M86.9 Osteomyelitis, unspecified (principal)
CPT/HCPCS: 36415; 80048; 85025; 85652; 86140

== ENCOUNTER 2023-12-27 11:30 | Outpatient (REF) | payer OTHER, SELFPAY ==
[2023-12-27 18:42] LABS: Hematocrit 33.1 % (37.0-47.0); Mean Corpuscular HGB Conc 33.2 g/dl (31.0-35.0); Mean Corpuscular Hemoglobin 27.7 pg (27.0-33.0); Mean Corpuscular Volume 83.4 fL (80.0-98.0); Mean Platelet Volume 9.9 fL (9.4-12.3); Platelet Count 391 X10*3/uL (160-400); Red Blood Count 3.97 X10*6/uL (4.20-5.50); Red Cell Distribution Width 12.7 % (11.0-16.0); White Blood Count 7.6 X10*3/uL (4.8-10.8)
[2023-12-27 19:46] LABS: Erythrocyte Sedimentation Rate 64 MM/HR (0-20)
== END 2023-12-27 11:31 | disposition home or self-care (01) ==
LOC: HO.HMGCLNP 11:30
PROVIDERS: Visit Provider Internal Medicine
DX: M86.9 Osteomyelitis, unspecified (principal)
CPT/HCPCS: 80048; 82550; 85027; 85652; 86140

== ENCOUNTER 2023-12-31 16:13 | Outpatient (REF) | payer OTHER, SELFPAY | END 2023-12-31 16:14 | disposition home or self-care (01) | LOC: HO.HVNA 16:13 | PROVIDERS: Visit Provider Internal Medicine | DX: Z13.89 Encounter for screening for other disorder (principal) ==

== ENCOUNTER 2024-01-04 14:05 | Outpatient (REF) | payer OTHER, SELFPAY ==
[2024-01-04 14:09] LABS: MANUAL DIFF FLAG NO
[2024-01-04 14:14] LABS: Basophils Percent Auto 0.6 % (0-2); Eosinophils Absolute Auto 0.1 X10*3/uL (0.0-0.4); Eosinophils Percent Auto 1.7 % (0-4); Hematocrit 39.2 % (37.0-47.0); Hemoglobin 12.8 g/dl (12.0-16.0); Imm Gran Abs Auto 0.04 X10*3/uL (0.00-0.03); Imm Gran Pct Auto 0.6 % (0.0-0.4); Lymphocytes Absolute Auto 2.1 X10*3/uL (1.2-4.9); Lymphocytes Percent Auto 29.5 % (20-40); Mean Corpuscular HGB Conc 32.7 g/dl (31.0-35.0); Mean Corpuscular Hemoglobin 26.9 pg (27.0-33.0); Mean Corpuscular Volume 82.5 fL (80.0-98.0); Mean Platelet Volume 10.1 fL (9.4-12.3); Monocytes Absolute Auto 0.5 X10*3/uL (0.1-1.2); Monocytes Percent Auto 7.3 % (2-11); Neutrophils Absolute Auto 4.4 x10*3/uL (2.0-8.3); Neutrophils Percent Auto 60.3 % (45-73); Platelet Count 337 X10*3/uL (160-400); Red Blood Count 4.75 X10*6/uL (4.20-5.50); Red Cell Distribution Width 13.2 % (11.0-16.0); White Blood Count 7.3 X10*3/uL (4.8-10.8)
[2024-01-04 15:02] LABS: Erythrocyte Sedimentation Rate 40 MM/HR (0-20)
== END 2024-01-04 14:06 | disposition home or self-care (01) ==
LOC: HO.HVNA 14:05
PROVIDERS: Visit Provider Internal Medicine
DX: M86.9 Osteomyelitis, unspecified (principal)
CPT/HCPCS: 36415; 80048; 80076; 82550; 85025; 85652; 86140

== ENCOUNTER 2024-01-06 14:49 | Outpatient (REF) | payer OTHER, SELFPAY ==
[2024-01-06 14:53] LABS: MANUAL DIFF FLAG NO
[2024-01-06 15:02] LABS: Basophils Percent Auto 0.4 % (0-2); Eosinophils Absolute Auto 0.1 X10*3/uL (0.0-0.4); Eosinophils Percent Auto 1.7 % (0-4); Hematocrit 37.9 % (37.0-47.0); Hemoglobin 12.9 g/dl (12.0-16.0); Imm Gran Abs Auto 0.03 X10*3/uL (0.00-0.03); Imm Gran Pct Auto 0.4 % (0.0-0.4); Lymphocytes Percent Auto 26.6 % (20-40); Mean Corpuscular Hemoglobin 27.3 pg (27.0-33.0); Mean Corpuscular Volume 80.3 fL (80.0-98.0); Mean Platelet Volume 8.9 fL (9.4-12.3); Monocytes Absolute Auto 0.6 X10*3/uL (0.1-1.2); Monocytes Percent Auto 8.4 % (2-11); Neutrophils Absolute Auto 4.7 x10*3/uL (2.0-8.3); Neutrophils Percent Auto 62.5 % (45-73); Platelet Count 351 X10*3/uL (160-400); Red Blood Count 4.72 X10*6/uL (4.20-5.50); Red Cell Distribution Width 12.4 % (11.0-16.0); White Blood Count 7.5 X10*3/uL (4.8-10.8)
[2024-01-06 15:18] LABS: Alanine Aminotransferase 25 U/L (0-31); Albumin Level 4.2 g/dL (3.5-5.0); Alkaline Phosphatase 151 U/L (39-117); Anion Gap 13 (12-20); Aspartate Amino Transferase 22 U/L (5-31); Bilirubin Direct 0.2 mg/dL (0.0-0.5); Bilirubin Total 0.5 mg/dL (0.0-1.0); Blood Urea Nitrogen 24 mg/dL (9-16); C Reactive Protein 0.45 mg/dL (< or = 0.50); Calcium 10.3 mg/dL (8.4-10.2); Carbon Dioxide 26 mmol/L (22-29); Chloride 102 mmol/L (96-108); Estimated Glomerular Filt Rate > 60; Glucose Random 118 mg/dL (60-115); Potassium 4.3 mmol/L (3.3-5.1); Sodium 137 mmol/L (135-145); Total Protein 8.6 g/dL (6.5-8.0)
[2024-01-06 15:48] LABS: Erythrocyte Sedimentation Rate 46 MM/HR (0-20)
== END 2024-01-06 14:50 | disposition home or self-care (01) ==
LOC: HO.HVNA 14:49
PROVIDERS: Visit Provider Internal Medicine
DX: E11.69 Type 2 diabetes mellitus with other specified complication (principal); M86.172 Other acute osteomyelitis, left ankle and foot; E11.610 Type 2 diabetes mellitus with diabetic neuropathic arthropathy
CPT/HCPCS: 36415; 80048; 80076; 85025; 85652; 86140

== ENCOUNTER 2024-01-10 12:51 | Outpatient (REF) | payer OTHER, SELFPAY ==
[2024-01-10 13:13] LABS: MANUAL DIFF FLAG NO
[2024-01-10 13:23] LABS: Basophils Percent Auto 0.6 % (0-2); Eosinophils Absolute Auto 0.2 X10*3/uL (0.0-0.4); Eosinophils Percent Auto 2.6 % (0-4); Hemoglobin 12.4 g/dl (12.0-16.0); Imm Gran Abs Auto 0.02 X10*3/uL (0.00-0.03); Imm Gran Pct Auto 0.3 % (0.0-0.4); Lymphocytes Absolute Auto 1.7 X10*3/uL (1.2-4.9); Lymphocytes Percent Auto 24.1 % (20-40); Mean Corpuscular HGB Conc 32.6 g/dl (31.0-35.0); Mean Corpuscular Volume 82.8 fL (80.0-98.0); Mean Platelet Volume 9.7 fL (9.4-12.3); Monocytes Absolute Auto 0.7 X10*3/uL (0.1-1.2); Monocytes Percent Auto 9.6 % (2-11); Neutrophils Absolute Auto 4.5 x10*3/uL (2.0-8.3); Neutrophils Percent Auto 62.8 % (45-73); Platelet Count 309 X10*3/uL (160-400); Red Blood Count 4.59 X10*6/uL (4.20-5.50); Red Cell Distribution Width 12.7 % (11.0-16.0); White Blood Count 7.2 X10*3/uL (4.8-10.8)
[2024-01-10 14:02] LABS: Erythrocyte Sedimentation Rate 46 MM/HR (0-20)
== END 2024-01-10 12:52 | disposition home or self-care (01) ==
LOC: HO.HVNA 12:51
PROVIDERS: Visit Provider Internal Medicine
DX: M86.172 Other acute osteomyelitis, left ankle and foot (principal)
CPT/HCPCS: 36415; 80048; 80076; 82550; 85025; 85652; 86140

== ENCOUNTER 2024-01-12 11:13 | Outpatient (AMB) | payer OTHER, SELFPAY ==
--- NOTE | 2024-01-12 11:24 | MHC.OFFVIS ---
Vital Signs 01/12/24 11:28 Height 5 ft 2 in Weight 177 lb BMI 32.4 Pulse 89 Pulse Source Pulse Oximeter Temp 98.4 F Temp Source Oral Pulse Oximetry (%) 98 Oxygen Delivery Method Room Air Intake Visit Reasons: reff [facility] osteo on toe/ertapenem picc line Allergies benzethonium chloride [From Lanacane [place]] Allergy (Unknown, Verified 01/12/24 11:45) Unknown benzocaine [From Lanacane [place]] Allergy (Unknown, Verified 01/12/24 11:45) Unknown dulaglutide [From Trulicity] Allergy (Unknown, Verified 01/12/24 11:45) Unknown liraglutide [From Victoza] Allergy (Unknown, Verified 01/12/24 11:45) Unknown sulfamethoxazole [From Bactrim] Allergy (Unknown, Verified 01/12/24 11:45) Unknown trimethoprim [From Bactrim] Allergy (Unknown, Verified 01/12/24 11:45) Unknown doxycycline Adverse Reaction (Verified 01/12/24 11:45) Chest Pain ibuprofen Adverse Reaction (Verified 01/12/24 11:45) Chest Pain HPI HPI reff [facility] osteo on toe/ertapenem picc line: Details: Her toe area is healing some improvement. [facility] Medical History Asthma Hyperlipidemia Type 2 diabetes mellitus Social History Household Members: Children Housing: Apartment Do you presently have visiting nurse or other home services: No Patient Tobacco Use Status: Never used Tobacco service: No Review of Systems Const All systems reviewed & are unremarkable except as noted in HPI and below Physical Exam Vital Signs: Last Vital Signs Temp 98.4 F 01/12/24 11:28 Pulse 89 01/12/24 11:28 Pulse Ox 98 01/12/24 11:28 Oxygen Delivery Method Room Air 01/12/24 11:28 BMI result Body Mass Index 32.4 Const Other: General: cooperative Orientation/consciousness: patient oriented x3 HEENT Head: Yes normal to inspection Mouth: Normal oral and palatal mucosa present Eyes General: appearance normal, both eyes and all related structures Pupils: Equal, round and reactive pupils present Resp Effort & Inspection: normal respiratory effort Cardio Rate: regular rate Rhythm: regular rhythm GI Palpation (GI): Soft to palpation and nontender General: Yes no CVA tenderness Back/Spine/Pelvis Back: no CVA tenderness Skin General skin exam: no rashes or lesions noted Neuro General: patient oriented x3 Cranial nerves: Yes CN's II-XII intact bilaterally and Yes Equal, round and reactive pupils present Extrem Other: healing foot wound Psych Appearance: grossly normal Assessment & Plan Assessment & Plan (1) Diabetic foot infection: Comment: There is some improvement Code(s): E11.628 - Type 2 diabetes mellitus with other skin complications; L08.9 - Local infection of the skin and subcutaneous tissue, unspecified Category: Medical Plan Remove PICC line. She is allergic to Doxycycline and other antibiotics so no oral followup. Orders: Orders IR cvc remove any age 0701/12/24 E11.628 - Type 2 diabetes mellitus with other skin complications, L08.9 - Local infection of the skin and subcutaneous tissue, unspecified Coding Level of Care Code Est Pt Level 3 (04606) Diagnoses Diabetic foot infection E11.628; L08.9
[2024-01-12 11:28] VITALS: PULSE 89; TEMP 36.9; O2SAT 98; BMI 32.4
== END 2024-01-12 15:06 | disposition home or self-care (01) ==
LOC: HO.HID 11:13
PROVIDERS: PCP Internal Medicine; Visit Provider Internal Medicine
DX: E11.628 Type 2 diabetes mellitus with other skin complications (principal); L08.9 Local infection of the skin and subcutaneous tissue, unspecified
CPT/HCPCS: 99213

== ENCOUNTER → 2024-01-12 11:13 | Outpatient (BNVA) | payer OTHER, SELFPAY | PROVIDERS: PCP Internal Medicine; Visit Provider Internal Medicine | DX: E11.628 Type 2 diabetes mellitus with other skin complications (principal); L08.9 Local infection of the skin and subcutaneous tissue, unspecified | CPT/HCPCS: 99212 ==

== ENCOUNTER 2024-01-14 10:18 | Outpatient (RCR) | payer OTHER, SELFPAY | END 2024-02-25 10:18 | disposition short-term general hospital (02) | LOC: HO.WCC 10:18 | PROVIDERS: PCP Internal Medicine; Visit Provider Physician Assistant | DX: E11.621 Type 2 diabetes mellitus with foot ulcer (principal); E11.51 Type 2 diabetes mellitus with diabetic peripheral angiopathy without gangrene; L97.522 Non-pressure chronic ulcer of other part of left foot with fat layer exposed; E11.69 Type 2 diabetes mellitus with other specified complication; M86.472 Chronic osteomyelitis with draining sinus, left ankle and foot; L84 Corns and callosities; E11.40 Type 2 diabetes mellitus with diabetic neuropathy, unspecified | CPT/HCPCS: 11042 ==

== ENCOUNTER 2024-01-18 10:06 | Outpatient (AMB) | payer OTHER, SELFPAY ==
--- NOTE | 2024-01-18 10:13 | MHC.OFFVIS ---
Intake Visit Reasons: Hospital follow up Toe ulcer Intake Note: Patient presents for a hospital follow up . Patient has a left great toe ulcer. States she is doing better . She is experiencing pain and some redness. Woundcare saw the patient about a week ago and cleaned up the wound . Allergies benzethonium chloride [From Lanacane [place]] Allergy (Unknown, Verified 01/18/24 10:16) Unknown benzocaine [From Lanacane [place]] Allergy (Unknown, Verified 01/18/24 10:16) Unknown dulaglutide [From Trulicity] Allergy (Unknown, Verified 01/18/24 10:16) Unknown liraglutide [From Victoza] Allergy (Unknown, Verified 01/18/24 10:16) Unknown sulfamethoxazole [From Bactrim] Allergy (Unknown, Verified 01/18/24 10:16) Unknown trimethoprim [From Bactrim] Allergy (Unknown, Verified 01/18/24 10:16) Unknown doxycycline Adverse Reaction (Verified 01/18/24 10:16) Chest Pain ibuprofen Adverse Reaction (Verified 01/18/24 10:16) Chest Pain HPI HPI Hospital follow up Toe ulcer: Details: 58-year-old poorly controlled diabetic presents for follow-up regarding nonhealing left great toe ulcer. She is currently being [facility] by [facility]. She currently has a PICC line. She is currently undergoing IV antibiotic therapy. She now presents for routine follow-up. [facility] Medical History Asthma Hyperlipidemia Type 2 diabetes mellitus Social History Household Members: Children Housing: Apartment Do you presently have visiting nurse or other home services: No Patient Tobacco Use Status: Never used Tobacco service: No Review of Systems Const All systems reviewed & are unremarkable except as noted in HPI and below Reports no additional complaints ENT Reports Normal hearing present Card Denies chest pain, Denies chest pain at rest, Denies chest pain with activity and Denies pedal edema Resp Denies cough GI Denies abdominal pain Musc Denies abnormal gait, Denies muscle cramps and Denies radiating pain into limb Skin/Breast Denies skin ulcer and Denies wounds Neuro Reports Normal hearing present and Denies abnormal gait Psych Reports no additional complaints Physical Exam Const General: cooperative, healthy appearing and comfortable Orientation/consciousness: oriented to person, oriented to place and oriented to time HEENT Head: Yes normal to inspection Neck Neck: Yes normal visual inspection Carotids: no bruits Chest Chest palpation & inspection: normal inspection of the chest Resp Effort & Inspection: normal respiratory effort and able to speak in complete sentences Auscultation: clear to auscultation bilaterally, no crackles, no rales, no rhonchi and no wheezes Cardio Rate: regular rate Rhythm: regular rhythm Heart sounds: S1 normal heart sound present and S2 normal heart sound present Bruits: no carotid bruits Peripheral pulses: Peripheral pulses 2+ throughout GI Inspection: Yes normal to inspection Skin Other: Left great toe ulcer approximately 2 cm in diameter with a reasonable granulation bed. Wounds: no wounds Hair: normal Neuro General: oriented to person, oriented to place and oriented to time Cranial nerves: Yes CN's II-XII intact bilaterally and Yes Normal hearing present Cognition (Neuro): normal cognition Motor exam (neuro): 5/5 motor strength present throughout Extrem Other: venous exam: No significant superficial varicosities or spider telangiectasias, minimal edema General: No clubbing, No cyanosis and No edema Psych Appearance: grossly normal Mental Status: mental status grossly normal Speech and movement: Normal speech and movement present Assessment & Plan Assessment & Plan (1) Diabetic foot infection: Code(s): E11.628 - Type 2 diabetes mellitus with other skin complications; L08.9 - Local infection of the skin and subcutaneous tissue, unspecified Category: Medical Plan: In short great toe ulcer appears to be slowly improving. Currently at a diameter of about 2 cm. She does have palpable arterial pulses. Continued local wound care at the [facility] and IV antibiotic therapy. She will follow up with us in approximately 3 months time. (2) Varicose veins of right lower extremity with inflammation: Code(s): I83.11 - Varicose veins of right lower extremity with inflammation Category: Medical Plan: Patient has extremely large varicosities. Will be happy to see her back after her wound goes on to heal. She will need venous treatment to help improve these varicosities. Thank you for allowing us to assist in her care. Coding Level of Care Code Est Pt Level 4 (70261) Diagnoses Diabetic foot infection E11.628; L08.9 Varicose veins of right lower extremity with inflammation I83.11
== END 2024-01-18 10:51 | disposition home or self-care (01) ==
PROVIDERS: PCP Internal Medicine; Visit Provider Surgery Vascular Surgery
DX: E11.628 Type 2 diabetes mellitus with other skin complications (principal); L08.9 Local infection of the skin and subcutaneous tissue, unspecified; I83.11 Varicose veins of right lower extremity with inflammation
CPT/HCPCS: 99214

== ENCOUNTER → 2024-01-18 10:06 | Outpatient (BNVA) | payer OTHER, SELFPAY | PROVIDERS: PCP Internal Medicine; Visit Provider Surgery Vascular Surgery | DX: I83.11 Varicose veins of right lower extremity with inflammation (principal); E11.621 Type 2 diabetes mellitus with foot ulcer; L97.529 Non-pressure chronic ulcer of other part of left foot with unspecified severity; L08.9 Local infection of the skin and subcutaneous tissue, unspecified | CPT/HCPCS: 99212 ==

== ENCOUNTER 2024-01-18 15:21 | Outpatient (REF) | payer OTHER, SELFPAY ==
[2024-01-18 15:25] LABS: MANUAL DIFF FLAG NO
[2024-01-18 15:30] LABS: Basophils Percent Auto 0.4 % (0-2); Eosinophils Absolute Auto 0.1 X10*3/uL (0.0-0.4); Eosinophils Percent Auto 1.9 % (0-4); Hematocrit 34.6 % (37.0-47.0); Hemoglobin 11.7 g/dl (12.0-16.0); Imm Gran Abs Auto 0.03 X10*3/uL (0.00-0.03); Imm Gran Pct Auto 0.4 % (0.0-0.4); Lymphocytes Absolute Auto 1.9 X10*3/uL (1.2-4.9); Mean Corpuscular HGB Conc 33.8 g/dl (31.0-35.0); Mean Corpuscular Hemoglobin 27.1 pg (27.0-33.0); Mean Corpuscular Volume 80.3 fL (80.0-98.0); Mean Platelet Volume 9.5 fL (9.4-12.3); Monocytes Absolute Auto 0.5 X10*3/uL (0.1-1.2); Monocytes Percent Auto 6.8 % (2-11); Neutrophils Absolute Auto 4.9 x10*3/uL (2.0-8.3); Neutrophils Percent Auto 65.5 % (45-73); Platelet Count 253 X10*3/uL (160-400); Red Blood Count 4.31 X10*6/uL (4.20-5.50); Red Cell Distribution Width 12.6 % (11.0-16.0); White Blood Count 7.5 X10*3/uL (4.8-10.8)
[2024-01-18 15:48] LABS: Alanine Aminotransferase 26 U/L (0-31); Alkaline Phosphatase 155 U/L (39-117); Anion Gap 15 (12-20); Aspartate Amino Transferase 23 U/L (5-31); Bilirubin Direct 0.2 mg/dL (0.0-0.5); Bilirubin Total 0.6 mg/dL (0.0-1.0); Blood Urea Nitrogen 16 mg/dL (9-16); C Reactive Protein 0.47 mg/dL (< or = 0.50); Calcium 9.8 mg/dL (8.4-10.2); Carbon Dioxide 25 mmol/L (22-29); Chloride 104 mmol/L (96-108); Estimated Glomerular Filt Rate > 60; Glucose Random 182 mg/dL (60-115); Potassium 4.5 mmol/L (3.3-5.1); Sodium 139 mmol/L (135-145); Total Protein 7.3 g/dL (6.5-8.0)
[2024-01-18 16:22] LABS: Erythrocyte Sedimentation Rate 36 MM/HR (0-20)
== END 2024-01-18 15:22 | disposition home or self-care (01) ==
LOC: HO.HVNA 15:21
PROVIDERS: Visit Provider Internal Medicine
DX: M86.9 Osteomyelitis, unspecified (principal)
CPT/HCPCS: 36415; 80048; 80076; 82550; 85025; 85652; 86140

== ENCOUNTER 2024-01-24 11:25 | Outpatient (REF) | payer OTHER, SELFPAY ==
[2024-01-24 11:29] LABS: MANUAL DIFF FLAG NO
[2024-01-24 11:34] LABS: Basophils Percent Auto 0.4 % (0-2); Eosinophils Absolute Auto 0.1 X10*3/uL (0.0-0.4); Eosinophils Percent Auto 1.3 % (0-4); Hematocrit 36.3 % (37.0-47.0); Imm Gran Abs Auto 0.04 X10*3/uL (0.00-0.03); Imm Gran Pct Auto 0.5 % (0.0-0.4); Lymphocytes Absolute Auto 1.8 X10*3/uL (1.2-4.9); Lymphocytes Percent Auto 23.8 % (20-40); Mean Corpuscular HGB Conc 33.1 g/dl (31.0-35.0); Mean Corpuscular Hemoglobin 26.9 pg (27.0-33.0); Mean Corpuscular Volume 81.4 fL (80.0-98.0); Mean Platelet Volume 9.9 fL (9.4-12.3); Monocytes Absolute Auto 0.6 X10*3/uL (0.1-1.2); Neutrophils Absolute Auto 4.9 x10*3/uL (2.0-8.3); Platelet Count 281 X10*3/uL (160-400); Red Blood Count 4.46 X10*6/uL (4.20-5.50); Red Cell Distribution Width 12.7 % (11.0-16.0); White Blood Count 7.4 X10*3/uL (4.8-10.8)
[2024-01-24 11:48] LABS: Alanine Aminotransferase 33 U/L (0-31); Albumin Level 4.2 g/dL (3.5-5.0); Alkaline Phosphatase 146 U/L (39-117); Anion Gap 12 (12-20); Aspartate Amino Transferase 25 U/L (5-31); Bilirubin Direct 0.2 mg/dL (0.0-0.5); Bilirubin Total 0.6 mg/dL (0.0-1.0); Blood Urea Nitrogen 21 mg/dL (9-16); C Reactive Protein 0.74 mg/dL (< or = 0.50); Carbon Dioxide 26 mmol/L (22-29); Chloride 104 mmol/L (96-108); Estimated Glomerular Filt Rate > 60; Glucose Random 118 mg/dL (60-115); Potassium 3.8 mmol/L (3.3-5.1); Sodium 138 mmol/L (135-145); Total Protein 8.2 g/dL (6.5-8.0)
[2024-01-24 12:49] LABS: Erythrocyte Sedimentation Rate 39 MM/HR (0-20)
== END 2024-01-24 11:26 | disposition home or self-care (01) ==
LOC: HO.LNP 11:25
PROVIDERS: Visit Provider Internal Medicine
DX: Z45.2 Encounter for adjustment and management of vascular access device (principal)
CPT/HCPCS: 80048; 80076; 82550; 85025; 85652; 86140

== ENCOUNTER 2024-02-07 11:24 | Outpatient (AMB) | payer OTHER, SELFPAY ==
[2024-02-07 11:29] VITALS: PULSE 91; TEMP 36.6; O2SAT 98; BMI 32.4
--- NOTE | 2024-02-07 11:29 | A.OFFVIS_ITS ---
Vital Signs 3 02/07/24 11:29 Height 5 ft 2 in Weight 177 lb BMI 32.4 Pulse 91 Pulse Source Pulse Oximeter Temp 97.9 F Temp Source Oral Pulse Oximetry (%) 98 Oxygen Delivery Method Room Air Intake Visit Reasons: 3 week follow up Allergies benzethonium chloride [From Lanacane [place]] Allergy (Unknown, Verified 02/07/24 12:03) Unknown benzocaine [From Lanacane [place]] Allergy (Unknown, Verified 02/07/24 12:03) Unknown dulaglutide [From Trulicity] Allergy (Unknown, Verified 02/07/24 12:03) Unknown liraglutide [From Victoza] Allergy (Unknown, Verified 02/07/24 12:03) Unknown sulfamethoxazole [From Bactrim] Allergy (Unknown, Verified 02/07/24 12:03) Unknown trimethoprim [From Bactrim] Allergy (Unknown, Verified 02/07/24 12:03) Unknown doxycycline Adverse Reaction (Verified 02/07/24 12:03) Chest Pain ibuprofen Adverse Reaction (Verified 02/07/24 12:03) Chest Pain HPI HPI 3 week follow up: Details: She feels well. Her foot has been healing and no bleeding open area. She is done with antibiotics. [facility] Medical History Asthma Hyperlipidemia Type 2 diabetes mellitus Social History Household Members: Children Housing: Apartment Do you presently have visiting nurse or other home services: No Patient Tobacco Use Status: Never used Tobacco service: No Review of Systems Const All systems reviewed & are unremarkable except as noted in HPI and below Physical Exam Vital Signs: Last Vital Signs Temp 97.9 F 02/07/24 11:29 Pulse 91 02/07/24 11:29 Pulse Ox 98 02/07/24 11:29 Oxygen Delivery Method Room Air 02/07/24 11:29 BMI result Body Mass Index 32.4 Const General: cooperative Orientation/consciousness: patient oriented x3 HEENT Head: Yes normal to inspection Mouth: Normal oral and palatal mucosa present Eyes General: appearance normal, both eyes and all related structures Pupils: Equal, round and reactive pupils present Resp Effort & Inspection: normal respiratory effort Cardio Rate: regular rate Rhythm: regular rhythm GI Palpation (GI): Soft to palpation and nontender General: Yes no CVA tenderness Back/Spine/Pelvis Back: no CVA tenderness Skin General skin exam: no rashes or lesions noted Neuro General: patient oriented x3 Cranial nerves: Yes CN's II-XII intact bilaterally and Yes Equal, round and reactive pupils present Extrem Other: General: Yes normal to inspection Psych Appearance: grossly normal Assessment & Plan Assessment & Plan (1) Diabetic foot infection: Comment: She has no complaints and foot healing She has reached maximum antibiotic use at this time Code(s): E11.628 - Type 2 diabetes mellitus with other skin complications; L08.9 - Local infection of the skin and subcutaneous tissue, unspecified Category: Medical Plan: No further antibiotics. Follow Wound Care Plan na Coding Level of Care Code Est Pt Level 3 (88704) Diagnoses Diabetic foot infection E11.628; L08.9
== END 2024-02-07 14:40 | disposition home or self-care (01) ==
LOC: HO.HID 11:24
PROVIDERS: PCP Internal Medicine; Visit Provider Internal Medicine
DX: E11.628 Type 2 diabetes mellitus with other skin complications (principal); L08.9 Local infection of the skin and subcutaneous tissue, unspecified
CPT/HCPCS: 99213

== ENCOUNTER → 2024-02-07 11:24 | Outpatient (BNVA) | payer OTHER, SELFPAY | PROVIDERS: PCP Internal Medicine; Visit Provider Internal Medicine | DX: E11.628 Type 2 diabetes mellitus with other skin complications (principal); L08.9 Local infection of the skin and subcutaneous tissue, unspecified; Z79.2 Long term (current) use of antibiotics | CPT/HCPCS: 99212 ==

== ENCOUNTER 2024-03-01 15:37 | Outpatient (AMB) | payer OTHER, SELFPAY ==
--- NOTE | 2024-03-01 15:49 | AM.OFFWIN_ITS ---
Intake Vital Signs 03/01/24 15:50 Height 5 ft 2 in Weight 176 lb BMI 32.2 BP 122/68 Blood Pressure Location Rt brachial Position Sitting Pulse 84 Pulse Source Pulse Oximeter Pulse Oximetry (%) 97 Oxygen Delivery Method Room Air Intake Visit Reasons: EP- Both ears are clogged Intake Note: Patient here for bilat ear pain Patient Tobacco Use Status: Never used Tobacco Allergies benzethonium chloride [From Lanacane [place]] Allergy (Unknown, Verified 03/01/24 15:51) Unknown benzocaine [From Lanacane [place]] Allergy (Unknown, Verified 03/01/24 15:51) Unknown dulaglutide [From Trulicity] Allergy (Unknown, Verified 03/01/24 15:51) Unknown liraglutide [From Victoza] Allergy (Unknown, Verified 03/01/24 15:51) Unknown sulfamethoxazole [From Bactrim] Allergy (Unknown, Verified 03/01/24 15:51) Unknown trimethoprim [From Bactrim] Allergy (Unknown, Verified 03/01/24 15:51) Unknown doxycycline Adverse Reaction (Verified 03/01/24 15:51) Chest Pain ibuprofen Adverse Reaction (Verified 03/01/24 15:51) Chest Pain Do you need a note to return to daycare/school/sports/work: No HPI EP- Both ears are clogged HPI Details This note is constructed using voice recognition software. While every effort has been made to ensure accuracy, semiautomatic stitcher operator errors may have been included. The patient is a 58 year old female who presents to the clinic today with bilateral ears feeling clogged. Diabetic and pending treatment in the hyperbaric chamber, and in order to be treated in that she has to have clear tympanic membranes. The wound clinic evaluated her years and noted them to be completely occluded with cerumen. They advised her to use Debrox eardrops, which he has been doing, and her ears feel more blocks since start. She actually reports some mild pain. No fever, chills, cough, shortness of breath, or any URI symptoms. She use ear buds regularly for music, and does not stick anything else in her ears. [facility] Medical History Asthma Hyperlipidemia Type 2 diabetes mellitus Social History Household Members: Children Housing: Apartment Do you presently have visiting nurse or other home services: No Patient Tobacco Use Status: Never used Tobacco service: No Review of Systems Const All systems reviewed & are unremarkable except as noted in HPI and below Physical Exam Vital Signs: Last Vital Signs Pulse 84 03/01/24 15:50 BP 122/68 03/01/24 15:50 Pulse Ox 97 03/01/24 15:50 Oxygen Delivery Method Room Air 03/01/24 15:50 BMI result Body Mass Index 32.2 Const General: cooperative, healthy appearing, comfortable and no acute distress Orientation/consciousness: patient oriented x3 HEENT Other: TMs retracted with clear fluid bubbles behind TM bilaterally after irrigation. Head: Yes normal to inspection and Yes normocephalic Ears: EAC's normal, mastoids normal and unable to visualize TM (cerumen impaction) bilaterally General nose exam: Normal external nose present Face and sinus: Yes normal facial exam Resp Effort & Inspection: normal respiratory effort and able to speak in complete sentences Neuro General: patient oriented x3 Office Procedures Cerumen Removal From which ear canal was the cerumen removed: bilateral Removal: irrigation Notes: patient tolerated procedure well, no complications and ear canal clear [id number] Irrigation/Lavage Assessment & Plan Assessment & Plan (1) Cerumen impaction: Code(s): H61.20 - Impacted cerumen, unspecified ear Qualifiers: Laterality: bilateral Qualified Code(s): H61.23 - Impacted cerumen, bilateral Plan: In office irrigation successful. Patient advised to use Debrox as needed with any additional cerumen impaction, and to avoid ear buds if able. (2) Allergic rhinitis: Code(s): J30.9 - Allergic rhinitis, unspecified Qualifiers: Allergic rhinitis trigger: unspecified Allergic rhinitis seasonality: unspecified Qualified Code(s): J30.9 - Allergic rhinitis, unspecified Plan: Advised treatment with Flonase nasal a or similar for management of symptoms. Likely the source of her pain. No signs of infection on physical examination. Plan See above for full details and plan. Coding Level of Care Code Est Pt Level 3 (97832) Diagnoses Bilateral impacted cerumen H61.23 Laterality: bilateral Allergic rhinitis, unspecified seasonality, unspecified trigger J30.9 Allergic rhinitis trigger: unspecified Allergic rhinitis seasonality: unspecified CPT Codes Office Procedure - CPT: 93781-Zvs Irrigation/Lavage ([id number])
[2024-03-01 15:50] VITALS: BP 122/68; PULSE 84; O2SAT 97; BMI 32.2
== END 2024-03-01 16:27 | disposition home or self-care (01) ==
PROVIDERS: PCP Internal Medicine; Visit Provider Registered Nurse
DX: H61.23 Impacted cerumen, bilateral (principal); J30.9 Allergic rhinitis, unspecified
CPT/HCPCS: 69209; 99213

== ENCOUNTER 2024-04-18 08:52 | Outpatient (AMB) | payer OTHER, SELFPAY ==
--- NOTE | 2024-04-18 08:56 | MHC.OFFVIS ---
Intake Visit Reasons: 3m leg check Intake Note: Patient goes 5 days a week to the hyperbaric chamber at [facility] and also goes to woundcare every Wednesday at [facility] as well. Gauze is changed every day . Mondays and Fridays she has [facility] go to her house. Accompanied by: Self / Same As Patient Allergies benzethonium chloride [From Lanacane [place]] Allergy (Unknown, Verified 04/18/24 08:59) Unknown benzocaine [From Lanacane [place]] Allergy (Unknown, Verified 04/18/24 08:59) Unknown dulaglutide [From Trulicity] Allergy (Unknown, Verified 04/18/24 08:59) Unknown liraglutide [From Victoza] Allergy (Unknown, Verified 04/18/24 08:59) Unknown sulfamethoxazole [From Bactrim] Allergy (Unknown, Verified 04/18/24 08:59) Unknown trimethoprim [From Bactrim] Allergy (Unknown, Verified 04/18/24 08:59) Unknown doxycycline Adverse Reaction (Verified 04/18/24 08:59) Chest Pain ibuprofen Adverse Reaction (Verified 04/18/24 08:59) Chest Pain HPI HPI 3m leg check: Details: Shayla is a pleasant 58-year-old female presenting today for three-month follow-up for ongoing great toe ulcer. She goes to the hyperbaric chamber at [facility] 5 days a week, wound care every Wednesday at [facility], and has VNA services at home twice a week. She does her own dressing changes by herself on the opposite days. She states she has very minimal pain until Wednesdays, when the wound is debrided. She denies pain otherwise. She does continue to have larger varicosities. She states the toe is healing very well and she has been keeping her blood sugars under control her most recent A1c was in the 7% range. She is also followed closely by her PCP. She is not currently on any antibiotics and no longer has the PICC line. She is a nonsmoker. [facility] Medical History Asthma Hyperlipidemia Type 2 diabetes mellitus Social History Household Members: Children Housing: Apartment Do you presently have visiting nurse or other home services: No Patient Tobacco Use Status: Never used Tobacco service: No Review of Systems Const Reports as per HPI and Denies weakness ENT Reports Normal hearing present and Denies dizziness Card Reports as per HPI, Denies chest pain, Denies chest pain at rest, Denies chest pain with activity, Denies dyspnea and Denies dyspnea on exertion Resp Reports as per HPI, Denies cough, Denies dyspnea and Denies dyspnea on exertion GI Reports as per HPI, Denies abdominal pain, Denies nausea and Denies vomiting Musc Denies numbness Skin/Breast Reports as per HPI, Denies erythema and Denies wounds Neuro Reports Normal hearing present, Denies dizziness, Denies numbness, Denies Sensory deficit (Neuro) and Denies weakness Psych Reports no additional complaints Endo Reports no additional complaints Physical Exam Const General: healthy appearing and no acute distress Orientation/consciousness: patient oriented x3 HEENT Head: Yes normal to inspection Ears: hearing grossly normal bilaterally Mouth: Normal oral and palatal mucosa present Resp Effort & Inspection: normal respiratory effort and able to speak in complete sentences Auscultation: clear to auscultation bilaterally Cardio Jugular venous distension: no JVD Rate: regular rate Rhythm: regular rhythm Heart sounds: S1 normal heart sound present and S2 normal heart sound present Bruits: no abdominal aortic bruits, no carotid bruits, no femoral bruits and no renal bruits Peripheral pulses: Peripheral pulses 2+ throughout GI Inspection: Yes normal to inspection Palpation (GI): No Abdominal aortic bruit present Skin Other: Right foot: Patient's foot is wrapped already in a dressing that was applied this morning. Patient also utilizing postop shoe. General skin exam: no rashes or lesions noted Wounds: no wounds Hair: normal Neuro General: patient oriented x3 Cranial nerves: Yes Normal hearing present Cognition (Neuro): normal cognition Gait exam (Neuro): Normal gait present Motor exam (neuro): 5/5 motor strength present throughout Sensory Exam: No Sensory deficit (Neuro) Extrem General: Yes normal to inspection, Yes full ROM, Yes capillary refill normal and Yes normal gait Assessment & Plan Assessment & Plan (1) Varicose veins of right lower extremity with inflammation: Code(s): I83.11 - Varicose veins of right lower extremity with inflammation Category: Medical Plan: At this time we will have her return in 6 months. Due to ongoing diabetic foot infection wound care we would like that wound to be completely healed prior to any venous interventions. The patient is in agreement to this plan. She does not currently experience any numbness or tingling or any pain or claudication issues. We advised her to reach out to us if anything does change. Thank you for allowing us to participate in this patient's care. If there are any questions or concerns please do not hesitate to contact us. (2) Diabetic foot infection: Code(s): E11.628 - Type 2 diabetes mellitus with other skin complications; L08.9 - Local infection of the skin and subcutaneous tissue, unspecified Category: Medical Plan: Patient states the ulcer on her left great toe is healing well. She continues with the hyperbaric chamber 5 days a week. She has VNA services at home to help with dressing changes 2 times a week. Due to a dressing change done this morning already we did not take it down this morning at the office. She also goes to Wound Care at [facility] once a week on Wednesdays for debridement. Patient states the wound is less than 2 cm now and only approximately 0.2 cm deep. We will have her continue this treatment and we will have her come back in about 6 months for a follow-up and discussion about possible venous interventions if the site is completely healed. We encouraged her to continue with her low carb diet and continuing to keep her blood sugars under control. Coding Level of Care Code Est Pt Level 4 (47266) Complex EM visit Add On G2211 Diagnoses Varicose veins of right lower extremity with inflammation I83.11 Diabetic foot infection E11.628; L08.9
== END 2024-04-18 09:11 | disposition home or self-care (01) ==
PROVIDERS: PCP Internal Medicine; Visit Provider Physician Assistant Surgical
DX: I83.11 Varicose veins of right lower extremity with inflammation (principal); E11.628 Type 2 diabetes mellitus with other skin complications; L08.9 Local infection of the skin and subcutaneous tissue, unspecified
CPT/HCPCS: 99214; G2211

== ENCOUNTER → 2024-04-18 08:52 | Outpatient (BNVA) | payer OTHER, SELFPAY | PROVIDERS: PCP Internal Medicine; Visit Provider Physician Assistant Surgical | DX: E11.622 Type 2 diabetes mellitus with other skin ulcer (principal); I83.215 Varicose veins of right lower extremity with both ulcer other part of foot and inflammation; L97.519 Non-pressure chronic ulcer of other part of right foot with unspecified severity; E11.628 Type 2 diabetes mellitus with other skin complications; L08.9 Local infection of the skin and subcutaneous tissue, unspecified | CPT/HCPCS: 99212 ==

== ENCOUNTER 2024-10-19 08:32 | Outpatient (AMB) | payer OTHER, SELFPAY ==
--- NOTE | 2024-10-19 08:55 | MHC.OFFVIS ---
Intake Visit Reasons: 6m follow up leg check Intake Note: Patient presents for 6 month follow up leg check. Patient states she has big veins in both legs that are painful. Accompanied by: Self / Same As Patient Allergies benzethonium chloride [From Lanacane [facility] [place]] Allergy (Unknown, Verified 10/19/24 09:00) Unknown benzocaine [From Lanacane [facility] [place]] Allergy (Unknown, Verified 10/19/24 09:00) Unknown dulaglutide [From Trulicity] Allergy (Unknown, Verified 10/19/24 09:00) Unknown liraglutide [From Victoza] Allergy (Unknown, Verified 10/19/24 09:00) Unknown sulfamethoxazole [From Bactrim] Allergy (Unknown, Verified 10/19/24 09:00) Unknown trimethoprim [From Bactrim] Allergy (Unknown, Verified 10/19/24 09:00) Unknown doxycycline Adverse Reaction (Verified 10/19/24 09:00) Chest Pain ibuprofen Adverse Reaction (Verified 10/19/24 09:00) Chest Pain HPI HPI 6m follow up leg check: Details: Shayla is presenting today for a 6m follow up to left leg wound. She states she stopped going to the hyperbaric chamber at [facility] on 06/25 and no longer requires VNA services. 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 She is happy with the wound healing; however, she has been noticing that the varicosities in her legs have been getting bigger as well as causing more pain/discomfort. Complaints include pain over varicosities, swelling of lower extremities, cramping, fatigue, and heaviness of the lower extremities. It has been affecting their daily activities including working, going upstairs, and physical activity. It is noted in bilateral legs. Patient had a vein procedure in the OR (cannot remember what) in 1986 at [facility]. Patient denies any history of DVT/ PE. Patient denies any history of phlebitis. Trial of compression includes - elevation. They now present for vascular evaluation regarding their varicose veins. [facility] History (Updated 10/19/24 @ 09:19 by Christine Villalobos PA-C) Varicose veins of right lower extremity with inflammation Asthma Hyperlipidemia Type 2 diabetes mellitus Social History Household Members: Children Housing: Apartment Do you presently have visiting nurse or other home services: No Patient Tobacco Use Status: Never used Tobacco service: No Review of Systems Const Reports as per HPI and Denies weakness ENT Reports Normal hearing present and Denies dizziness Card Reports as per HPI, Denies chest pain, Denies chest pain at rest, Denies chest pain with activity, Denies dyspnea and Denies dyspnea on exertion Resp Reports as per HPI, Denies cough, Denies dyspnea and Denies dyspnea on exertion GI Reports as per HPI, Denies abdominal pain, Denies nausea and Denies vomiting Musc Denies numbness Skin/Breast Reports as per HPI, Denies erythema and Denies wounds Neuro Reports Normal hearing present, Denies dizziness, Denies numbness, Denies Sensory deficit (Neuro) and Denies weakness Psych Reports no additional complaints Endo Reports no additional complaints Physical Exam Const General: healthy appearing and no acute distress Orientation/consciousness: patient oriented x3 HEENT Head: Yes normal to inspection Ears: hearing grossly normal bilaterally Mouth: Normal oral and palatal mucosa present Resp Effort & Inspection: normal respiratory effort and able to speak in complete sentences Auscultation: clear to auscultation bilaterally Cardio Jugular venous distension: no JVD Rate: regular rate Rhythm: regular rhythm Heart sounds: S1 normal heart sound present and S2 normal heart sound present Bruits: no abdominal aortic bruits, no carotid bruits, no femoral bruits and no renal bruits Peripheral pulses: Peripheral pulses 2+ throughout GI Inspection: Yes normal to inspection Palpation (GI): No Abdominal aortic bruit present Skin General skin exam: no rashes or lesions noted Wounds: no wounds Hair: normal Neuro General: patient oriented x3 Cranial nerves: Yes Normal hearing present Cognition (Neuro): normal cognition Gait exam (Neuro): Normal gait present Motor exam (neuro): 5/5 motor strength present throughout Sensory Exam: No Sensory deficit (Neuro) Extrem Other: Bilateral lower extremities: significant amount of rope-like varicosities noted on the medial aspect in the upper legs, most around 5-6cm each. Painful to palpation. Varicosities also noted below the knees anteriorly and down the anterior calves. Trace peripheral edema noted. CEAP: C - 3 E - primary A - superficial P - reflux General: Yes normal to inspection, Yes full ROM, Yes capillary refill normal and Yes normal gait Assessment & Plan Assessment & Plan (1) Varicose veins of both lower extremities with inflammation: Code(s): I83.11 - Varicose veins of right lower extremity with inflammation; I83.12 - Varicose veins of left lower extremity with inflammation Category: Medical Plan: Shayla is presenting today for a follow up to a left lower extremity wound. Her wound has completely healed over. She does endorse that the varicosities in her legs have been getting bigger and are now painful. In short, the patient has evidence of venous insufficiency. I have discussed the pathophysiology with the patient. In addition I have provided informational material regarding venous disease to the patient. We have discussed conservative measures including compression, elevation, and exercise. I have taken the liberty of ordering venous insufficiency testing with the patient. They will follow up with me after testing. The patient had an opportunity to ask questions regarding the treatment plan. All questions were answered. Imaging studies, laboratory studies and physical exam results were discussed and reviewed in detail. No major barriers to understanding were identified. The patient expressed understanding and agreement with the above treatment plan. The patient is aware they should contact our office by phone for worsening of the current condition or the appearance of new symptoms. Thank you for allowing me to participate in the vascular care of this patient. If you have any questions or concerns regarding the treatment for the above condition please do not hesitate to contact me. The office telephone contact is [phone]. This note is constructed using voice recognition software. While every effort has been made to ensure accuracy, candy rolling machine operator errors may have been included. Thank you for allowing me to participate in the care of your patient. Yours sincerely, JENNIFER Ac Orders: Orders US venous duplex LE BI 1 Week I83.11 - Varicose veins of right lower extremity with inflammation, I83.12 - Varicose veins of left lower extremity with inflammation Coding Level of Care Code Est Pt Level 4 (40603) Diagnoses Varicose veins of both lower extremities with inflammation I83.11; I83.12
--- OUTSIDE RECORDS SUMMARY | 2024-10-19 08:56 | XMS_ITS | Clinical Summary ---
Author Organization [facility] Address [address] [place] [address] Care Team Providers Care Event Specialist Name Role Phone Tianna Holt DMD Primary Care Provider [phone] Source Comments PLEASE NOTE, if this patient is a minor, it may be UNLAWFUL to discuss sensitive information that is contained in these records (such as FAMILY PLANNING, MENTAL HEALTH or SUBSTANCE ABUSE) with the minor patient's parent or other person without the patient's specific authorization.[facility] Social History Tobacco Use Types Packs/Day Years Used Date Smoking Tobacco: Never Assessed Comments Unknown Sex and Gender Information Value Date Recorded Sex Assigned at Not on file Legal Sex Female 11:36 AM PDT Gender Identity Not on file Sexual Orientation Not on file Plan of Treatment Not on file Insurance [facility] DENTAL DENTAL [facility] Member Subscriber Plan / Payer (Ef fective 2015-Present) Name:HuShayla marquez Relation to Subscriber:Self Name:Shayla Hu Payer ID:[id number] Group ID:Not on file Type:Medicaid Address: [address] [address] Care Teams Event Specialist Relationship Specialty Start Date End Date Tianna Holt DMD [address] [place] [address] PCP - General 03/16/19
--- OUTSIDE RECORDS SUMMARY | 2024-10-19 08:56 | XMS_ITS ---
Author Organization [address] [facility] Address [address] [place] [address] Phone Care Team Providers Care Negotiator Sales Name Role Phone Marisel Ojeda MD Primary Care Provider [phone] [facility] - Transportation Status:Ongoing (Active) Start date:07/21/2024 Enrollment date:07/21/2024 Related social drivers of health:Transportation Related program episode:Community Health Worker Program (Closed) Overview Community Health Worker Program - Transportation Service Episode Case Team Name Relationship Phone Ruben Hubbard Community Health Worker(Respons ible Staff) Continued Care and Services Coordination
--- OUTSIDE RECORDS SUMMARY | 2024-10-19 08:56 | XMS_ITS | Encounter Summary ---
Author Organization [facility] Address [address] [place] [address] Care Team Providers Care Movie Extra Name Role Phone Marisel Ojeda MD Primary Care Provider [phone] Reason for Visit * Reason Comments Gynecologic Exam Encounter Details Date Type Department Care Team (Latest Contact Info) Description 10/18/2024 8:45 AM EDT Office Visit Obstetrics and Gynecology - [place] [address] [place] [phone] John Savage [facility] [address] [place] [phone] Encounter for annual routine gynecological examination (Primary Dx) Social History Tobacco Use Types Packs/Day Years Used Date Smoking Tobacco: Never Smokeless Tobacco: Never Alcohol Use Standard Drinks/Week Comments No 0 (1 standard drink = 0.6 oz pur e alcohol) Interpersonal Safety Answer Date Record ed Physical Abuse 09/29/2024 Verbal Abuse 09/29/2024 Comments No Sex and Gender Information Value Date Recorded Sex Assigned at Female 09/29/2024 6:54 AM EDT Legal Sex Female 12:22 AM EST Gender Identity Female 09/29/2024 6:54 AM EDT Sexual Orientation Straight 09/29/2024 6: 54 AM EDT Occupation Industry Job Start Date Job 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[employer] [employer] Not on file Not on file Not on file documented as of this encounter Last Filed Vital Signs Vital Sign Reading Time Taken Comments Blood Pressure 145/78 10/18/2024 8:34 AM EDT Pulse 86 10/18/2024 8:34 AM EDT Temperature - - Respiratory Rate - - Oxygen Saturation - - Inhaled Oxygen Concentration - - Weight 83.9 kg (185 lb) 10/18/2024 8:34 AM EDT Height - - Body Mass Index 33.84 09/29/2024 7:22 AM EDT documented in this encounter Progress Notes * John Savage CNM - 10/18/2024 8:45 AM EDT Office note: Routine Chief Deputy Coroner Exam Encounter Date: 10/18/2024 HPI: Shayla Hu is a 59 y.o. who presents for routine annual exam. She has not been seen byOBGYN in 5+ years and is here to reestablish care. Pap smears from 2012 and 2016 were normal, No LMP recorded. Patient is postmenopausal. She denies any postmenopausal bleeding. She is single and lives by herself. She feels safe and happy and denies IPV. She has a 38 year old daughter. 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 She has diabetes and is on lantus for this. Review of Systems - Review of Systems Constitutional: Negative. HENT: Negative. Respiratory: Negative. Cardiovascular: Negative. Gastrointestinal: Negative. Genitourinary: Negative. Negative for vaginal bleeding and vaginal discharge. Musculoskeletal: Negative. Skin: Varicose veins Neurological: Negative. Psychiatric/Behavioral: Negative. Health Maintenance and Preventative Care: Health Maintenance: Last mammogram: Narrative & Impression This is a summary report. The complete report is available in the patient's medical record. If you cannot access the medical record, please contact the sending organization for a detailed fax or copy. BILATERAL 3D DIGITAL SCREENING MAMMOGRAM History: Routine screening. No current breast complaints. History of reduction mammoplasty. Comparison: Multiple priors dating back to 01/28/2021 Technique: Bilateral full-field digital 3D mammography was performed using standard CC and MLO projections CAD was used to evaluate this mammogram. Findings: Density: There are scattered areas of fibroglandular density-B RIGHT: No suspicious masses,. Scattered typically benign calcifications. Groups of microcalcification or areas of architectural distortion identified. Scattered typically benign calcifications LEFT: No suspicious masses, groups of microcalcifications or areas of architectural distortion identified. Stable typically benign parenchymal asymmetries. Scattered typically benign calcifications IMPRESSION: : 1. No mammographic evidence of malignancy. BI-RADS Category 2 benign findings Recommendation: Routine annual screening mammography is recommended [facility] [address] [address] Immunization History Administered Date(s) Administered Influenza Quadravalent, MDCK, 0.5ml, preservative free (Flucelvax) 6mo and older 05/27/2020, 04/01/2022, 03/25/2023 Influenza Quadravalent, MDCK, 0.5ml, with preservative (Flucelvax) 6mo and older 04/16/2017, 03/28/2018 Influenza trivalent, with preservative (Fluzone; Afluria) 6mo and older 04/04/2013, 06/03/2016, 07/11/2019 Moderna SARS-CoV-2 COVID-19, mRNA, LNP-S, preservative free 11/08/2020, 12/06/2020, 06/24/2021 Pneumococcal conjugate 13 valent (Prevnar 13, PCV13) 2mo and older 12/15/2018 Pneumococcal polysaccharide 23 valent (Pneumovax 23) 2yo and older 05/16/2014 Tdap Tetanus diptheria acellular pertussis (Boostrix; Adacel) 7yo and older 07/02/2014, 03/08/2023 Zoster recombinant (Shingrix) 19yo and older 12/11/2020, 05/12/2021 OB History Para Term AB Living 3 1 1 2 1 SAB IAB Ectopic Multiple Live Births 2 1 # Outcome Date GA Lbr Donte/2nd Weight Sex Type Anes PTL Lv 3 Term 01/04/86 F Vag-Spont CHRISTIANA 2 IAB 1 IAB Chief Deputy Coroner History: Last Pap: 2015 NILM/Neg HPV H/o abnormal Pap: no Completed Gardasil series: no Patient Active Problem List Diagnosis Allergic rhinitis Asthma 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 LENS GAUGER (background diabetic retinopathy) ([facility] V24, [facility] V28) Depression Diabetic gastroparesis ([facility] V24, [facility] V28) Emphysema/COPD ([facility] V24, [facility] V28) Erosive esophagitis Genital herpes simplex GERD (gastroesophageal reflux disease) Hyperlipidemia Irritable bowel syndrome without diarrhea Lichen simplex chronicus Microalbuminuria Nodule of esophagus Pulmonary nodules Restrictive lung disease Tubular adenoma of colon Type 2 diabetes mellitus with neurological manifestations ([facility] V24, [facility] V28) Type 2 diabetes with ophthalmic manifestation ([facility] V24, [facility] V28) Type II diabetes mellitus with renal manifestations ([facility] V24, [facility] V28) Varicose veins of lower extremity Vitamin D insufficiency Cryoglobulinemia ([facility] V24) Severe obesity (BMI 35.0-35.9 with comorbidity) ([facility] V24, [facility] V28) Chronic refractory osteomyelitis of foot, left ([facility] V24, [facility] V28) Type 2 diabetes mellitus with foot ulcer ([facility] V24, [facility] V28) Peripheral vascular disease, unspecified ([facility] V24) DM (diabetes mellitus), type 2 with peripheral vascular complications ([facility] V24, [facility] V28) Past Medical History: Diagnosis Date Allergic rhinitis 02/23/2014 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 02/11/2016 Cervical lymphadenopathy 01/24/2015 COPD (chronic obstructive pulmonary disease) ([facility] V24, [facility] V28) Cryoglobulinemia ([facility] V24) 03/02/2024 Dependence on nocturnal oxygen therapy 01/27/2018 Depression 02/27/2021 Diabetic gastroparesis ([facility] V24, [facility] V28) 05/06/2016 DM (diabetes mellitus), type 2 with peripheral vascular complications ([facility] V24, [facility] V28) 06/06/2024 Emphysema of lung ([facility] V24, [facility] V28) Erosive esophagitis 02/11/2016 Gastroesophageal reflux disease with esophagitis 01/27/2018 Genital herpes simplex 09/03/2017 GERD (gastroesophageal reflux disease) Hypertension Nodule of esophagus 02/11/2016 Severe obesity (BMI 35.0-35.9 with comorbidity) ([facility] V24, [facility] V28) 02/03/2017 Tubular adenoma of colon 02/11/2016 Type 2 diabetes mellitus with neurological manifestations ([facility] V24, [facility] V28) 05/10/2012 Type 2 diabetes with ophthalmic manifestation ([facility] V24, [facility] V28) 01/27/2018 ) Type II diabetes mellitus with renal manifestations ([facility] V24, [facility] V28) 05/20/2020 Varicose veins of lower extremity 02/24/2013 Severe, bilaterally w/ pain. Dr. Valiente. Past Surgical History: Procedure Laterality Date BREAST REDUCTION 2004 CHOLECYSTECTOMY 1989 COLONOSCOPY 12/12/2015 : Polyps x 3: adenomas; repeat under propofol in 3 yrs ESOPHAGOGASTRODUODENOSCOPY 12/12/2015 Esophagitis, GEJ nodularity, normal stomach and duodenum NECK SURGERY 2001 C5-6 fusion VEIN SURGERY 1986 WISDOM TOOTH EXTRACTION 1991 Family History Problem Relation Name Age of Onset Pneumonia Mother No Known Problems Father Diabetes Maternal Grandmother Diabetes Maternal Grandfather No Known Problems Paternal Grandmother No Known Problems Paternal Grandfather Asthma Daughter Breast cancer Neg Hx Colon cancer Neg Hx Prostate cancer Neg Hx Social History Socioeconomic History Marital status: Spouse name: None Number of children: None Years of education: None Highest education level: None Occupational History Occupation: [employer] Tobacco Use Smoking status: Never Smokeless tobacco: Never Substance and Sexual Activity Alcohol use: No Drug use: No Sexual activity: Not Currently Other Topics Concern None Social History Narrative 2016: lives with daughter and son-in-law, works at [employer] 2017: as above Allergies Allergen Reactions Doxycycline Pain Chest tightness Ibuprofen Pain & Ibuprofen Micronized: Chest tightness Lidocaine Swelling and Rash Oral / enteral lidocaine Lidocaine Hcl Swelling and Rash Oral / enteral lidocaine Liraglutide Nausea And Vomiting, Headache and Cramps Sulfamethoxazole-Trimethoprim Cramps Humalog Venkat Kwikpen U-100 [Insulin Lispro] Cramps Trimethoprim Trulicity [Dulaglutide] GI intolerance Current Outpatient Medications on File Prior to Visit Medication Sig Dispense Refill albuterol HFA (PROAIR HFA ; PROVENTIL HFA ; VENTOLIN HFA) 90 mcg/actuation inhaler Inhale 2 puffs by mouth every 6 (six) hours if needed for wheezing or shortness of breath. 1 each 11 alpha lipoic acid 50 mg capsule Take 1 capsule by mouth 1 (one) time each day in the morning. ammonium lactate (AmLactin) 12 % lotion Apply topically if needed for dry skin. 400 g 2 ascorbic acid (VITAMIN C) 500 mg tablet Take 1 tablet (500 mg total) by mouth 1 (one) time each day. atorvastatin (LIPITOR) 40 mg tablet Take 1 Tablet by mouth at bedtime. BD Faye 2nd Gen Pen Needle 32 gauge x 5/32 needle USE WITH INSULIN PEN TWICE DAILY 200 each 1 CALCIUM CITRATE ORAL Take 1 tablet by mouth 1 (one) time each day in the morning. cetirizine (ZyrTEC) 10 mg tablet Take 1 Tablet by mouth at bedtime. cholecalciferol (VITAMIN D-3) 50 mcg (2,000 unit) capsule TAKE 1 CAPSULE BY MOUTH EVERY DAY 90 capsule 1 diphenhydrAMINE (BENADRYL) 25 mg tablet Take 10 mg by mouth at bedtime as needed for sleep. Dupixent Syringe 300 mg/2 mL syringe EPINEPHrine (EPIPEN) 0.3 mg/0.3 mL injection INJECT 1 EACH DIRECTED CONTINUOUS NEEDED FOR OTHER (ANAPHYLAXIS). 1 each 1 insulin glargine (Lantus Solostar U-100 Insulin) 100 unit/mL (3 mL) injection pen Inject 18 Units under the skin at bedtime. 15 mL 1 magnesium chloride 64 mg magnesium tablet Take 1 tablet by mouth 1 (one) time each day in the morning. metoclopramide (REGLAN) 5 mg tablet Take 1 tablet (5 mg total) by mouth 4 (four) times a day. 120 each 0 montelukast (SINGULAIR) 10 mg tablet Take 1 Tablet by mouth at bedtime. multivitamin tablet Take 1 tablet by mouth 1 (one) time each day. OMEGA-3 FATTY ACIDS ORAL Take by mouth. pantoprazole (PROTONIX) 40 mg EC tablet Take 1 tablet (40 mg total) by mouth 1 (one) time each day.Take in a.m. on empty stomach, wait 30 minutes and then eat to activate medication 30 each 11 simethicone (MYLICON,GAS-X) 180 mg capsule Take 1 Capsule by mouth 4 times daily as needed (heartburn). ZINC ORAL Take by mouth. No current facility-administered medications on file prior to visit. Physical exam: Blood pressure (!) 145/78, pulse 86, weight 83.9 kg (185 lb). Body mass index is 33.84 kg/m??. This patient was offered a maintenance and repair worker for today's exam and she declines Physical Exam Constitutional: General: She is not in acute distress. Appearance: Normal appearance. Genitourinary: Vulva and rectum normal. Right Labia: No rash or lesions. Left Labia: No lesions or rash. No vaginal discharge, erythema or bleeding. No cervical motion tenderness, discharge, lesion or polyp. Breasts: Breasts are symmetrical. Breasts are soft. Right: Normal. Left: Normal. Cardiovascular: Rate and Rhythm: Normal rate and regular rhythm. Heart sounds: Normal heart sounds. Pulmonary: Effort: Pulmonary effort is normal. Breath sounds: Normal breath sounds. Abdominal: Palpations: Abdomen is soft. Musculoskeletal: General: Normal range of motion. Neurological: General: No focal deficit present. Mental Status: She is alert and oriented to person, place, and time. Skin: General: Skin is warm and dry. Psychiatric: Mood and Affect: Mood normal. Behavior: Behavior normal. Vitals reviewed. Assessment/Plan: 59 y.o. 1. Screening for sexually transmitted infections -Gonorrhea/Chlamydia testing offered, declines 2. Contraception -N/A 3. Health Maintenance and Screening -Reviewed ASCCP guidelines. Pap smear collected today 10/18/2024, yearly pelvic exam. -Reviewed and encouraged diet and exercise for cardiovascular and bone health -Reviewed breast self awareness. Continue with yearly mammogram at age 40. -Discussed use of 3 times per week weight bearing exercise, Vitamin D3 and 4 servings of dietary calcium daily for bone health. -Continue to follow with PCP for general medical care, immunizations -Family and personal history of cancer reviewed. Royal screening not indicated. 1. Encounter for annual routine gynecological examination Pap smear Follow up in about 1 year (around 10/18/2025) for Annual Exam. John Savage CNM documented in this encounter Plan of Treatment Upcoming Encounters Date Type Department Care Team ([facility] st Contact Info) Description 11/14/2024 8:15 AM EDT Office Visit Orthopedic Surgery - [place] [address] [phone] Dion Sierra DPM [address] [facility] [address] [place] [address] 11/20/2024 9:30 AM EDT Office Visit Pulmonolgy - [place] 175 [facility] [address] [place] [address] Mariely Yi MD 175 [facility] [address] [place] [address] 01/10/2025 8:30 AM EDT Office Visit [address] [phone] Micaela Carroll [place] [address] 01/10/2025 1:15 PM EDT Office Visit Adult Medicine [address] [phone] Marisel Ojeda MD [address] [place] [address] Pending Results Name Type Priority Associated Diagnoses Date /Time Pap smear Pathology and Cytology Routine Encounter for annual routine gynecological examination 10/18/2024 8:53 AM EDT HPV with reflex genotype Lab Routine Encounter for annual routine gynecological examination 10/18/2024 8:53 AM EDT documented as of this encounter Goals Goal Patient Goal Type Associated Problems Recent Progress Patient-Stated? Author Patient and Caregiver Understand Wound Care Education Care Plan Impaired Tissue Nasra Hendrix RN Wound volume breakdown reduced by X% by week 4 Care Plan Impaired Tissue Nasra Hendrix RN Wound volume breakdown reduced by X% by week 8 Care Plan Impaired Tissue Nasra Hendrix RN Wound volume breakdown reduced by X% by week 12 Care Plan Impaired Tissue Nasra Hendrix RN Quit using tobacco (cigarettes, smokeless, etc) Care Plan Education needed on impact of smoking on wound Nasra Hendrix RN Reduce tobacco use (cigarettes, smokeless, etc) Care Plan Education needed on impact of smoking on wound No Nasra Lewis RN Decrease Wound Volume by X% by date (in notes) Care Plan Education needed on impact of smoking on wound No Nasra Lewis RN Patient and Caregiver Understand Wound Care Education Care Plan Education needed related to ulceration/compr omised skin integrity. No Nasra Lewis RN documented as of this encounter Visit Diagnoses Diagnosis Encounter for annual routine gynecological examination- Primary documented in this encounter Additional Health Concerns Active Problems Noted Date Diagnosed Date Impaired Tissue 05/24/2024 Education needed on impact of smoking on wound 1 07/24/2023 Education needed related to ulceration/compromised skin integrity. 05/24/2024 documented as of this encounter Care Teams Movie Extra Relationship Specialty Start Date End Date Marisel Ojeda MD [address] [place] [address] PCP - General Internal Medicine 12/12/02 documented as of this encounter
--- OUTSIDE RECORDS SUMMARY | 2024-10-19 08:56 | XMS_ITS | Encounter Summary ---
Author Organization [facility] Address [address] [place] [address] Care Team Providers Care Data Center Operator Name Role Phone Marisel Ojeda MD Primary Care Provider [phone] Reason for Visit * Reason Onset Date Comments provider call back 10/04/2024 Encounter Details Date Type Department Care Team (Late st Contact Info) Description 10/04/2024 Telephone Gastroenterology - [place] 175 [facility] 175 [facility] [address] [place] [address] Robert Gomez PA 175 [facility] [address] [place] [address] provider call back Social History Tobacco Use Types Packs/Day Years [...] Orientation Straight 09/29/2024 6: 54 AM EDT documented as of this encounter Progress Notes * Keeley Bowen MA - 10/04/2024 9:58 AM EDT Spoke to patient and advised that with the EGD, she may have some irritation but if it continues orgets worse, to please call the office. She is aware Robert is out of the office until 10/10. * Ramila Gandara - 10/04/2024 9:31 AM EDT Patient calling had EGD Friday 09/29 and is now having a scratchy throat along with a cough. Patientwould like to know what she should do. Please advise. documented in this encounter Plan of Treatment Upcoming Encounters Date Type Department Care Team (Late st Contact Info) Description 11/14/2024 8:15 AM EDT Office Visit Orthopedic Surgery - [place] [address] [phone] Dion Sierra DPM [address] [address] 11/20/2024 9:30 AM EDT Office Visit Pulmonolgy - [place] [address] [phone] Mariely Yi MD [address] [address] 01/10/2025 8:30 AM EDT Office Visit [address] [phone] Micaela Carroll PA [address] [place] [address] 01/10/2025 1:15 PM EDT Office Visit Adult Medicine [place] [id number] [place] [address] Marisel Ojeda MD [address] [place], [place] documented as of this encounter Goals Goal [...] of smoking on wound Nasra Hendrix RN Decrease Wound Volume by X% by date (in notes) Care Plan Education needed on impact of smoking on wound Nasra Hendrix RN Patient and Caregiver Understand Wound Care Education Care Plan Education needed related to ulceration/compr omised skin integrity. Nasra Hendrix RN documented as of this encounter Visit Diagnoses Not on filedocumented in this encounter Additional Health Concerns Active Problems Noted Date Diagnosed Date Impaired Tissue 05/24/2024 Education needed on impact of smoking on wound 1 07/24/2023 Education needed related to ulceration/compromised skin integrity. 05/24/2024 documented as of this encounter Care Teams Data Center Operator Relationship Specialty Start Date End Date Marisel Ojeda MD [address] [place] [address] PCP - General Internal Medicine 12/12/02 documented as of this encounter
--- OUTSIDE RECORDS SUMMARY | 2024-10-19 08:56 | XMS_ITS | Clinical Summary ---
Author Organization 175 [facility] Address [address] [place] [address] Phone Care Team Providers Care Securities Trader Name Role Phone Marisel Ojeda MD Primary Care Provider [phone] Allergies Active Allergy Reactions Criticality Noted Date Comments Doxycycline Pain High 09/08/2012 Chest tightness Insulin Lispro Cramps 09/29/2024 Ibuprofen Pain High 05/10/2012 & Ibuprofen Micronized: Chest tightness Lidocaine Swelling,Rash High 10/28/2016 Oral / enteral lidocaine Lidocaine Hcl Swelling,Rash High 08/10/2016 Oral / enteral lidocaine Liraglutide Nausea And Vomiting,Headache,Rn Or Lvn mps Medium 10/23/2016 Sulfamethoxazole-Trime thoprim Cramps Medium 11/02/2012 Trimethoprim 09/29/2024 Dulaglutide GI intolerance 05/22/2024 Medications simethicone (MYLICON,GAS-X) 180 mg capsule Take 1 Capsule by mouth 4 times daily as needed (heartburn). 4 Active atorvastatin (LIPITOR) 40 mg tablet Take 1 Tablet by mouth at bedtime. 4 Active montelukast (SINGULAIR) 10 mg tablet Take 1 Tablet by mouth at bedtime. 4 Active cetirizine (ZyrTEC) 10 mg tablet Take 1 Tablet by mouth at bedtime. 4 Active OMEGA-3 FATTY ACIDS ORAL Take by mouth. Acti ve ZINC ORAL Take by mouth. Activ e ammonium lactate (AmLactin) 12 % lotion Apply topically if needed for dry skin. 400 g 2 4 05/10/20 25 Active albuterol HFA (PROAIR HFA ; PROVENTIL HFA ; VENTOLIN HFA) 90 mcg/actuation inhaler Inhale 2 puffs by mouth every 6 (six) hours if needed for wheezing or shortness of breath. 1 each 4 06/04/20 25 Active multivitamin tablet Take 1 tablet by mouth 1 (one) time each day. Active magnesium chloride 64 mg magnesium tablet Take 1 tablet by mouth 1 (one) time each day in the morning. Active alpha lipoic acid 50 mg capsule Take 1 capsule by mouth 1 (one) time each day in the morning. Active ascorbic acid (VITAMIN C) 500 mg tablet Take 1 tablet (500 mg total) by mouth 1 (one) time each day. Active CALCIUM CITRATE ORAL Take 1 tablet by mouth 1 (one) time each day in the morning. Active insulin glargine (Lantus Solostar U-100 Insulin) 100 unit/mL (3 mL) injection pen Inject 18 Units under the skin at bedtime. 15 mL 1 4 Active pantoprazole (PROTONIX) 40 mg EC tablet Take 1 tablet (40 mg total) by mouth 1 (one) time each day. Take in a.m. on empty stomach, wait 30 minutes and then eat to activate medication 30 each 4 06/26/20 25 Active cholecalciferol (VITAMIN D-3) 50 mcg (2,000 unit) capsule TAKE 1 CAPSULE BY MOUTH EVERY DAY 90 capsule 1 5 Active BD Faye 2nd Gen Pen Needle 32 gauge x 5/32 needle USE WITH INSULIN PEN TWICE DAILY 200 each 5 Active EPINEPHrine (EPIPEN) 0.3 mg/0.3 mL injection INJECT 1 EACH DIRECTED CONTINUOUS NEEDED FOR OTHER (ANAPHYLAXIS). 1 each 1 5 Active Dupixent Syringe 300 mg/2 mL syringe 5 Active diphenhydrAMINE (BENADRYL) 25 mg tablet Take 10 mg by mouth at bedtime as needed for sleep. Active metoclopramide (REGLAN) 5 mg tablet Take 1 tablet (5 mg total) by mouth 4 (four) times a day. 120 each 5 10/30/19 25 Active meloxicam (Mobic) 15 mg tablet Take 1 tablet (15 mg total) by mouth 1 (one) time each day for 15 days. 15 each 5 09/30/19 25 Active Problems Problem Noted Date Diagnosed Date DM (diabetes mellitus), type 2 with peripheral vascular complications ([facility] V24, [facility] V28) 06/06/2024 Chronic refractory osteomyel itis of foot, left ([facility] V24, [facility] V28) 05/08/2024 Type 2 diabetes mellitus wit h foot ulcer ([facility] V24, [facility] V28) 05/08/2024 Peripheral vascular disease, unspecified ([facility] V24) 05/08/2024 Emphysema/COPD ([facility] V24, [facility] V28) 2023 Cryoglobulinemia ([facility] V24) 03/02/2024 Pulmonary nodules 12/23/2021 Overview (08/13/2024): Restrictive lung disease 12/23/2021 Overview (04/04/2024): Last Assessment & Plan: Likely due to extrathoracic restriction. Vitamin D insufficiency 12/10/2021 Depression 02/27/2021 Microalbuminuria 12/11/2020 Type II diabetes mellitus wi th renal manifestations ([facility] V24, [facility] V28) 05/20/2020 Type 2 diabetes with ophthal jory manifestation ([facility] V24, [facility] V28) 01/27/2018 Genital herpes simplex 09/03/2017 Severe obesity (BMI 35.0-35. 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 Repeat EGD in 2019. 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 Dr. Valiente. Asthma 11/02/2012 Overview (08/13/2024): Hyperlipidemia 05/10/2012 Type 2 diabetes mellitus wit h neurological manifestations ([facility] V24, [facility] V28) 05/10/2012 Resolved Problems Problem Noted Date Diagnosed Date Resolved Date Skin ulcer of left great toe , limited to breakdown of skin ([facility] V24, [facility] V28) 05/25/2024 06/06/2024 Chronic osteomyelitis with d raining sinus, left ankle and foot ([facility] V24, [facility] V28) 05/10/2024 06/06/2024 Non-pressure chronic ulcer o f other part of right foot with bone involvement without evidence of necrosis ([facility] V24, [facility] V28) 05/08/2024 06/06/2024 Osteomyelitis ([facility] V24, [facility] V28) 12/29/2023 06/06/2024 Overview (04/04/2024): 12/26 left first toe Encounters Date Type Department Care Team Description 10/18/2024 8:45 AM EDT Office Visit Obstetrics and Gynecology [place] [address] [place] [address] John Savage CNM Encounter for annual routine gynecological examination (Primary Dx) 10/04/2024 Telephone Gastroenterology [facility] [address] [place] [phone] Robert Gomez PA provider call back 09/29/2024 7:39 AM EDT Anesthesia Event [facility] Endoscopy [address] [place] [phone] Henrik Soni DO Millay, Julia, CRNA 09/29/2024 6:55 AM EDT - 09/29/2024 11:59 PM EDT Hospital Encounter [facility] Endoscopy [address] [place] [phone] Cristina Owusu MD Millay, Julia, CRNA Dasilva, Mahesh Katz MD Kilpatrick's esophagus Discharge Disposition: Home or Self Care 09/14/2024 8:30 AM EDT Office Visit Orthopedic Surgery - [place] [address] [phone] Dion Sierra DPM Controlled type 2 diabetes mellitus with diabetic polyneuropathy, without long-term current use of insulin ([facility] V24, [facility] V28) (Primary Dx); Bunion, left; Venous insufficiency; Arthritis of both feet; Onychomycosis 08/08/2024 9:30 AM EST Nutrition Internal Medicine - [place] [address] [facility] [address] [place] [phone] Nasra Miranda, LES Type 2 diabetes mellitus with neurological manifestations ([facility] V24, [facility] V28) (Primary Dx) 07/21/2024 Telephone [facility] [facility] [address] [place] [phone] Ruben Hubbard from Last 3 Months Immunizations Name Administration Dates Next Due Influenza Quadravalent, MDCK , 0.5ml, preservative free (Flucelvax) 6mo and older 03/25/2023,04/01/2022,05/27/2020 Influenza Quadravalent, MDCK , 0.5ml, with preservative (Flucelvax) 6mo and older 03/28/2018,04/16/2017 Influenza trivalent, with pr eservative (Fluzone; Afluria) 6mo and older 07/11/2019,06/03/2016,04/04/2013 Pneumococcal conjugate 13 va lent (Prevnar 13, PCV13) 2mo and older 12/15/2018 Pneumococcal polysaccharide 23 valent (Pneumovax 23) 2yo and older 05/16/2014 Tdap Tetanus diptheria acell ular pertussis (Boostrix; Adacel) 7yo and older 03/08/2023,07/02/2014 Zoster recombinant (Shingrix ) 19yo and older 05/12/2021,12/11/2020 Surgical History Surgery Date Site/Laterality Comments BREAST REDUCTION 2004 COLONOSCOPY 12/12/2015 : Polyps x 3: adenomas; repeat under propofol in 3 yrs ESOPHAGOGASTRODUODENOSCOPY 12/12/2015 Esophagitis, GEJ nodularity, normal stomach and duodenum CHOLECYSTECTOMY 1989 VEIN SURGERY 07/05/1986 - 07/04/1987 WISDOM TOOTH EXTRACTION 07/05/1991 - 07/04/1992 NECK SURGERY 07/05/2001 - 07/04/2002 C5-6 fusion Medical History Medical History Date Comments Cervical lymphadenopathy 01/24/2015 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 02/11/2016 Erosive esophagitis 02/11/2016 Nodule of esophagus 02/11/2016 Tubular adenoma of colon 02/11/2016 Diabetic gastroparesis ([facility] V24, [facility] V28) 05/06/2016 Type 2 diabetes with ophthal jory manifestation ([facility] V24, [facility] V28) 01/27/2018 ) Type 2 diabetes mellitus wit h neurological manifestations ([facility] V24, [facility] V28) 05/10/2012 Varicose veins of lower extremity 02/24/2013 Severe, bilaterally w/ pain. Dr. Valiente. Genital herpes simplex 09/03/2017 Allergic rhinitis 02/23/2014 Dependence on nocturnal oxygen therapy 01/27/2018 Gastroesophageal reflux dise ase with esophagitis 01/27/2018 Severe obesity (BMI 35.0-35. 9 with comorbidity) ([facility] V24, [facility] V28) 02/03/2017 Depression 02/27/2021 Cryoglobulinemia ([facility] V24) 03/02/2024 Hypertension COPD (chronic obstructive pu lmonary disease) ([facility] V24, [facility] V28) Type II diabetes mellitus wi th renal manifestations ([facility] V24, [facility] V28) 05/20/2020 DM (diabetes mellitus), type 2 with peripheral vascular complications ([facility] V24, [facility] V28) 06/06/2024 Emphysema of lung ([facility] V 24, [facility] V28) GERD (gastroesophageal reflux disease) Family History Medical History Relation Name Comments Asthma Daughter No Known Problems Father Diabetes Maternal Grandfather Diabetes Maternal Grandmother Pneumonia Mother No Known Problems Paternal Grandfather No Known Problems Paternal Grandmother Breast cancer Neg Hx Colon cancer Neg Hx Prostate cancer Neg Hx Relation Name Status Comments Daughter Father Alive Maternal Grandfather Maternal Grandmother Mother Paternal Grandfather Paternal Grandmother Social History Tobacco Use Types Packs/Day Years Used Date Smoking Tobacco: Never Smokeless Tobacco: Never Tobacco Cessation:Counseling Given: Not Answered Alcohol Use Standard Drinks/Week Comments No 0 [...] Industry Job Start Date Job End Date [employer] [facility] [employer] Not on file Not on file Not on file Obstetrics History Para Term AB IAB SAB Ectopic Multiple Livin g Live Births 3 1 1 2 2 1 1 Date Outcome GA Total Labor Labor/2nd/3rd Weight Sex Type Anes PTL Iram A1 A5 Name Clin IAB IAB 1985 Term F Vag-S pont Living Last Filed Vital Signs Vital Sign Reading Time Taken Comments Blood Pressure 145/78 10/18/2024 8:34 AM EDT Pulse 86 10/18/2024 8:34 AM EDT Temperature 36.6 ??C (97.9 ??F) 09/29/2024 9:19 AM ED T Respiratory Rate 16 09/29/2024 9:19 AM EDT Oxygen Saturation 94% 09/29/2024 9:19 AM EDT Inhaled Oxygen Concentration - - Weight 83.9 kg (185 lb) 10/18/2024 8:34 AM EDT Height 157.5 cm (5' 2 ) 09/29/2024 7:22 AM EDT Body Mass Index 33.84 09/29/2024 7:22 AM EDT Plan of Treatment Upcoming Encounters Date Type Department Care Team (Late st Contact Info) Description 11/14/2024 8:15 AM EDT Office Visit Orthopedic Surgery - [place] [address] [address] [facility] [address] [place] [address] Dion Sierra DPM [address] [address] 11/20/2024 9:30 AM EDT Office Visit Pulmonolgy - [place] [facility] [address] [place] [phone] Mariely Yi MD [address] [address] 01/10/2025 8:30 AM EDT Office Visit [address] [phone] Micaela Carroll PA [facility] [place] [address] 01/10/2025 1:15 PM EDT Office Visit Adult Medicine [address] [phone] Marisel Ojeda MD [address] [place] [phone] Health Maintenance Due Date Last Done Comments Diabetes: Annual Foot Exam 1975 Diabetes: Annual Retina Eye Exam 1975 Hepatitis B Vaccines (1 of 3 - 19+ 3-dose series) 1984 Cervical Cancer Screening: Pap Smear 2019 2016 Depression Screening 06/13/2022 HIV Screening 06/13/2022 Social Influencers of Health Screening 06/13/2022 Pneumococcal Vaccine: 50+ Years (3 of 3 - PCV20 or PCV21) 12/16/2023 12/15/2018, 05/16/2014 Pneumococcal Vaccine: Pediatrics (0 to 5 Years) and At-Risk Patients (6 to 64 Years) (3 of 3 - PCV20 or PCV21) 12/16/2023 12/15/2018, 05/16/2014 COVID-19 Vaccine ( season) 2024 06/24/2021, 12/06/2020, 11/08/2020 Diabetes: Blood Sugar Control Test (HGBA1C) 01/10/2025 07/13/2024, 03/28/2024, 03/28/2024, Additional history exists Influenza Vaccine (Season Ended) 2025 03/25/2023, 04/01/2022, 05/27/2020, Additional history exists Diabetes: Annual Urine Albumin-Creatinine Ratio (uACR) 07/13/2025 07/13/2024, 12/28/2023 Diabetes: Annual GFR (Glomerular Filtration Rate) 07/13/2025 07/13/2024, 03/28/2024, 03/28/2024, Additional history exists Breast Cancer Screening 04/24/2026 04/24/20, 04/24/2024, 01/28/2021, Additional history exists Colorectal Cancer Screening: Colonoscopy 06/03/2026 06/03/2021 Cholesterol Screening (Lipid Panel) 07/13/2029 07/13/2024, 12/28/2023, 12/28/2023 DTaP,Tdap,and Td Vaccines (3 - Td or Tdap) 03/08/2033 03/08/2023, 07/02/2014 RSV Immunization Adult Patients (1 - 1-dose 75+ series) 2040 Hepatitis C Screening Completed 03/04/2021 Zoster Vaccines Completed 05/12/2021, 12/11/2020 HIB Vaccines Aged Out No longer eligi ble based on patient's age to complete this topic HPV Vaccines Aged Out No longer eligi ble based on patient's age to complete this topic Hepatitis A Vaccines Aged Out No long er eligible based on patient's age to complete this topic IPV Vaccines Aged Out No longer eligi ble based on patient's age to complete this topic MMR Vaccines Aged Out No longer eligi ble based on patient's age to complete this topic Meningococcal ACWY Vaccine Aged Out N o longer eligible based on patient's age to complete this topic Meningococcal B Vaccine Aged Out No l onger eligible based on patient's age to complete this topic RSV Immunization Patients Under 20 months Aged Out No longer eligible based on patient's age to complete this topic Varicella Vaccines Aged Out No longer eligible based on patient's age to complete this topic Goals Goal Patient Goal Type Associated Problems [...] ulceration/compr omised skin integrity. Nasra Hendrix RN Procedures Procedure Name Priority Date/Time Associated Diagnosis Comments TH AN ENDOTRACHEAL(NO CHARGE) Routine 09/29/2024 8:23 AM EDT EGD Routine 09/29/2024 8:16 AM EDT Kilpatrick's esophagus TISSUE EXAM Routine 09/29/2024 7:59 AM EDT Kilpatrick's esophagus EXTERNAL CLINICAL LAB 08/18/2024 MICROALBUMIN CREATININE URINE RATIO Routine 07/13/2024 3:31 PM EST Type 2 diabetes mellitus with neurological manifestations ([facility] V24, [facility] V28) BASIC METABOLIC PANEL Routine 07/13/2024 3:31 PM EST Type 2 diabetes mellitus with neurological manifestations (CMS/HCC V24, CMS/HCC V28) HEMOGLOBIN A1C Routine 07/13/2024 3:31 PM EST Type 2 diabetes mellitus with neurological manifestations (CMS/HCC V24, CMS/HCC V28) LIPID PANEL WITH REFLEX TO DIRECT LDL Routine 07/13/2024 3:31 PM EST Type 2 diabetes mellitus with neurological manifestations (CMS/HCC V24, CMS/HCC V28) SCREENING MAMMOGRAPHY BI 2-VIEW BREAST INC CAD Routine 04/24/2024 10:34 AM EDT Encounter for other screening for malignant neoplasm of breast HM COLONOSCOPY Routine 06/03/2021 HM HEPATITIS C SCREENING Routine 03/04/2021 HM PAP SMEAR Routine 2016 from Last 3 Months or Most Recently Relevant to Health Maintenance Results * TH AN ENDOTRACHEAL(NO CHARGE) (09/29/2024 8:23 AM EDT) Rola Garcia CRNA - 09/29/2024 8:23 AM EDT Rola Ziegler CRNA ? 09/29/2024 ??8:25 AM General Information and Staff Patient location during procedure: [facility] ([facility]) Performed by: Rola Ziegler CRNA Authorized by: Henrik Snoi, DO ?? Intubation Airway not difficult Urgency: elective Final Airway Details Successful airway: ETT Cuffed: yes Successful intubation technique: direct laryngoscopy Endotracheal tube insertion site: oral Blade: Jian Blade size: #3 ETT size (mm): 7.5 Cormack-Lehane Classification: grade IIa - partial view of glottis Placement verified by: capnometry Measured from: teeth ETT to teeth (cm): 21 Number of attempts at approach: 1 Ventilation between attempts: none Number of other approaches attempted: 0Final airway type: endotracheal airway Indications and Patient Condition Indications for airway management: airway protection and anesthesia (Food in esophagus after placement of endoscope, patient immediately intubated) Spontaneous ventilation: present Sedation level: Yes Preoxygenated: yes Soft Tissue Damage: No Dentition Unchanged: Yes Patient position: neutral MILS maintained throughout Mask difficulty assessment: 0 - not attempted Start Time: 09/29/2024 7:50 AM us Henrik Soni DO ANESTHESIA ORDERABLES Final Result * EGD Anesthesia - MAC; [facility] ENDOSCOPY (09/29/2024 8:16 AM EDT) Anatomical Region Laterality Modality Endoscopy 09/29/2024 7:39 AM EDT Impressions 09/29/2024 8:05 AM EDT - Normal examined duodenum. ? - A large amount of food (residue) in the stomach. ? - Z-line regular, 37 cm from the incisors. Biopsied. Recommendation: ?- Discharge patient to home. ? - Use metoclopramide 5 mg PO QID; 30 min AC and HS. Narrative 09/29/2024 8:05 AM EDT [facility] GI Patient Name: Shayla Hu Procedure Date: 09/29/2024 7:39 AM Date of : 1965 Age: 59 Gender: Female Note Status: Finalized Attending MD: Cristina Owusu MD, Procedure Date No Time: 09/29/2024 Procedure: ? Upper GI endoscopy Indications: ? Surveillance for malignancy due to personal history of ? Kilpatrick's esophagus Providers: ? Cristina Owusu MD Referring MD: ?Cristina Owusu MD Medicines: ? Monitored Anesthesia Care, See the Anesthesia note for ? documentation of the administered medications Complications: ? No immediate complications. Estimated blood loss: ? Minimal. Estimated Blood Loss: ? Estimated blood loss was minimal. Procedure: ? Pre-Anesthesia Assessment: ? - Prior to the procedure, a History and Physical was ? performed, and patient medications and allergies were ? reviewed. The patient is competent. The risks and ? benefits of the procedure and the sedation options and ? risks were discussed with the patient. All questions ? were answered and informed consent was obtained. ? Patient identification and proposed procedure were ? verified by the physician, the nurse, the primary grade teacher ? and the home service technician in the pre-procedure area in the ? endoscopy suite. Mental Status Examination: alert and ? oriented. Airway Examination: normal oropharyngeal ? airway and neck mobility. Respiratory Examination: ? clear to auscultation. CV Examination: normal. ? Prophylactic Antibiotics: The patient does not require ? prophylactic antibiotics. Prior Anticoagulants: The ? patient has taken no anticoagulant or antiplatelet ? agents. ASA Grade Assessment: III - A patient with ? severe systemic disease. After reviewing the risks and ? benefits, the patient was deemed in satisfactory ? condition to undergo the procedure. The anesthesia ? plan was to use monitored anesthesia care (MAC). ? Immediately prior to administration of medications, ? the patient was re-assessed for adequacy to receive ? sedatives. The heart rate, respiratory rate, oxygen ? saturations, blood pressure, adequacy of pulmonary ? ventilation, and response to care were monitored ? throughout the procedure. The physical status of the ? patient was re-assessed after the procedure. ? After obtaining informed consent, the endoscope was ? passed under direct vision. Throughout the procedure, ? the patient's blood pressure, pulse, and oxygen ? saturations were monitored continuously. The Endoscope ? was introduced through the mouth, and advanced to the ? second part of duodenum. The upper GI endoscopy was ? accomplished without difficulty. The patient tolerated ? the procedure poorly due to LARGE AMOUNT OF FOOD IN ? THE STOMACH. Findings: ?The examined duodenum was normal. ? A large amount of food (residue) was found in the ? entire examined stomach. ? The Z-line was regular and was found 37 cm from the ? incisors. Mucosa was biopsied with a cold forceps for ? histology. One specimen bottle was sent to pathology. ? Estimated blood loss was minimal. ? No other significant abnormalities were identified in ? a careful examination of the esophagus. Procedure Code(s): ? --- Professional --- ? 50794, Esophagogastroduodenoscopy, flexible, ? transoral; with biopsy, single or multiple Diagnosis Code(s): ? --- Professional --- ? 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 All rights reserved. The codes documented in this report are preliminary and upon citizen participation specialist review may be revised to meet current compliance requirements. Cristina Owusu MD 09/29/2024 8:04:53 AM This report has been signed electronically.Cristina Owusu MD Number of Addenda: 0 Note Initiated On: 09/29/2024 7:39 AM Scope In: Scope Out: ? Endoscopy Department at [facility] - [address] [place] [address], ? [place] [address] Procedure Note Cristina Owusu MD - 09/29/2024 [facility] GI Patient Name: Shayla Hu Procedure Date: 09/29/2024 7:39 AM Date of : 1965 Age: 59 Gender: Female Note Status: Finalized Attending MD: Cristina Owusu MD, Procedure Date No Time: 09/29/2024 Procedure: Upper GI endoscopy Indications: Surveillance for malignancy due to personal historyof Kilpatrick's esophagus Providers: Cristina Owusu MD Referring MD: Cristina Owusu MD Medicines: Monitored Anesthesia Care, See the Anesthesia notefor documentation of the administered medications Complications: No immediate complications. Estimated blood loss: Minimal. Estimated Blood Loss: Estimated blood loss was minimal. Procedure: Pre-Anesthesia Assessment: - Prior to the procedure, a History and Physicalwas performed, and patient medications and allergieswere reviewed. The patient is competent. The risks and benefits of the procedure and the sedation optionsand risks were discussed with the patient. Allquestions were answered and informed consent was obtained. Patient identification and proposed procedure were verified by the physician, the nurse, theanesthetist and the home service technician in the pre-procedure area in the endoscopy suite. Mental Status Examination: alertand oriented. Airway Examination: normal oropharyngeal airway and neck mobility. Respiratory Examination: clear to auscultation. CV Examination: normal. Prophylactic Antibiotics: The patient does notrequire prophylactic antibiotics. Prior Anticoagulants: The patient has taken no anticoagulant or antiplatelet agents. ASA Grade Assessment: III - A patient with severe systemic disease. After reviewing the risksand benefits, the patient was deemed in satisfactory condition to undergo the procedure. The anesthesia plan was to use monitored anesthesia care (MAC). Immediately prior to administration of medications, the patient was re-assessed for adequacy to receive sedatives. The heart rate, respiratory rate, oxygen saturations, blood pressure, adequacy of pulmonary ventilation, and response to care were monitored throughout the procedure. The physical status ofthe patient was re-assessed after the procedure. After obtaining informed consent, the endoscope was passed under direct vision. Throughout theprocedure, the patient's blood pressure, pulse, and oxygen saturations were monitored continuously. TheEndoscope was introduced through the mouth, and advanced tothe second part of duodenum. The upper GI endoscopy was accomplished without difficulty. The patienttolerated the procedure poorly due to LARGE AMOUNT OF FOOD IN THE STOMACH. Findings: The examined duodenum was normal. A large amount of food (residue) was found in the entire examined stomach. The Z-line was regular and was found 37 cm from the incisors. Mucosa was biopsied with a cold forcepsfor histology. One specimen bottle was sent topathology. Estimated blood loss was minimal. No other significant abnormalities were identifiedin a careful examination of the esophagus. Procedure Code(s): --- Professional --- 92871, Esophagogastroduodenoscopy, flexible, transoral; with biopsy, single or multiple Diagnosis Code(s): --- Professional --- K22.70, Kiplatrick's esophagus without dysplasia CPT copyright 2020 [employer]. All rights reserved. The codes documented in this report are preliminary and upon citizen participation specialist reviewmay be revised to meet current compliance requirements. Cristina Owusu MD 09/29/2024 8:04:53 AM This report has been signed electronically.Cristina Owusu MD Number of Addenda: 0 Note Initiated On: 09/29/2024 7:39 AM Scope In: Scope Out: Endoscopy Department at [facility] - [address] [place] [id number] IMPRESSION: - Normal examined duodenum. - A large amount of food (residue) in thestomach. - Z-line regular, 37 cm from the incisors.Biopsied. Recommendation: - Discharge patient to home. - Use metoclopramide 5 mg PO QID; 30 min AC andHS. us Cristina Owusu MD GI~PROCEDURE ORDERABLES Fin al Result * Tissue exam (09/29/2024 7:59 AM EDT) Final Diagnosis Esophagus, lower, biopsy: Esophageal squamous mucosa with mild chronic esophagitis and reactive changes. No gastric component identified. 10/02/2024 10:36 AM EDT [facility] Gross Description A. Esophagus, lower biopsy: Labeled esophagus biopsy of . Received in formalin are two soft to friable, white tissue fragments, approximately measuring 0.4 cm and 0.6 cm in greatest diameters, which are wrapped in paper and submitted in toto in one cassette, two pieces, multiple levels. dvb/DG 10/02/2024 10:36 AM EDT [facility] Disclaimer Unless otherwise specified, all tissue is 10% NB formalin fixed and paraffin embedded. 10/02/2024 10:36 AM EDT [facility] Tissue Esophageal structure / Unknown 09/29/2024 7:59 AM EDT 09/29/2024 10:53 AM EDT us Cristina Owusu MD LAB PATHOLOGY ORDERABLES Fi nal Result [facility] [address] [place] [address], [place] [phone] * External clinical lab (08/18/2024) us Provider [facility] LAB BLOOD ORDERABLES Fin al Result * Lipid panel with reflex to direct LDL (07/13/2024 3:31 PM EST) Cholesterol 159 0 - 200 mg/dL LAB CHEMISTRY METHOD 07/13/2024 6:46 PM EST [facility] Triglycerides 53 0 - 150 mg/dL LAB CHEMISTRY METHOD 07/13/2024 6:46 PM EST [facility] HDL 58 >=40 mg/dL LAB CHEMISTRY METHOD 07/13/2024 6:46 PM EST [facility] LDL Calculated 90 0 - 100 mg/dL LAB CHEMISTRY METHOD 07/13/2024 6:46 PM EST [facility] VLDL Cholesterol Jamarcus 10.6 mg/dL LAB CHEMISTRY METHOD 07/13/2024 6:46 PM EST [facility] Non HDL Chol. (LDL+VLDL) 101 <145 mg/dL LAB CHEMISTRY METHOD 07/13/2024 6:46 PM EST [facility] Chol/HDL Ratio 2.7 0.0 - 4.4 LAB CHEMISTRY METHOD 07/13/2024 6:46 PM [facility] Blood Venous blood specimen / Unknown Venipuncture / Unknown 07/13/2024 3:31 PM EST 07/13/2024 3:31 PM EST Micaela RODRIGUE[facility] LAB BLOOD ORDERABLES Final Result [facility] [address] [place] [address], [place] [phone] * (ABNORMAL) Microalbumin creatinine urine ratio (07/13/2024 3:31 PM EST) Creatinine, Urine 75.0 mg/dL LAB CHEMISTRY METHOD 07/13/2024 8:27 PM [facility] Microalb, Ur 31.3(H) 0.0 - 29.0 mg/L LAB CHEMISTRY METHOD 07/13/2024 8:27 PM [facility] Microalb/Crea t Ratio 42(H) <30 mg/g creat LAB CHEMISTRY METHOD 07/13/2024 8:27 PM [facility] Urine Urine specimen from urethra / Unknown Non-blood Collection / Unknown 07/13/2024 3:31 PM EST 07/13/2024 3:31 PM EST Micaela RODRIGUE[facility] LAB URINE ORDERABLES Final Result Performing Organization Address [facility]/ZIP Co de Phone Number [facility] [address] [place] [address], [place] [phone] * Hemoglobin A1c (07/13/2024 3:31 PM EST) [facility] Hemoglobin A1C 6.1 <6.5 % LAB CHEMISTRY METHOD 07/13/2024 10:02 PM EST [facility] Mean Bld Glu Estim. 128 mg/dL LAB CHEMISTRY METHOD 07/13/2024 10:02 PM [facility] Blood Venous blood specimen / Unknown Venipuncture / Unknown 07/13/2024 3:31 PM EST 07/13/2024 3:31 PM EST Micaela RODRIGUEZ LAB BLOOD ORDERABLES Final Result [facility] [address] [place] [address], [place] [phone] * (ABNORMAL) Basic metabolic panel (07/13/2024 3:31 PM EST) [facility] Sodium 137 133 - 145 mmol/L LAB CHEMISTRY METHOD 07/13/2024 6:42 PM [facility] Potassium 3.6 3.5 - 5.5 mmol/L LAB CHEMISTRY METHOD 07/13/2024 6:42 PM [facility] Chloride 105 96 - 110 mmol/L LAB CHEMISTRY METHOD 07/13/2024 6:42 PM [facility] CO2 26 21 - 32 mmol/L LAB CHEMISTRY METHOD 07/13/2024 6:42 PM [facility] Anion Gap 6 3 - 11 LAB CHEMISTRY METHOD 07/13/2024 6:42 PM [facility] Glucose 67(L) 70 - 100 mg/dL LAB CHEMISTRY METHOD 07/13/2024 6:42 PM [facility] BUN 17 5 - 25 mg/dL LAB CHEMISTRY METHOD 07/13/2024 6:42 PM [facility] Creatinine 0.60 0.50 - 1.10 mg/dL LAB CHEMISTRY METHOD 07/13/2024 6:42 PM [facility] eGFR 104 >=60 mL/min/1. 73m2 LAB CHEMISTRY METHOD 07/13/2024 6:42 PM [facility] Comment:Calculation based on the??Chronic Kidney Disease Epidemiology Collaboration (CKD-EPI) equation refit??without adjustment for race. BUN/Creatinine Ratio 28.3 LAB CHEMISTRY METHOD 07/13/2024 6:42 PM [facility] Calcium 9.0 8.5 - 10.5 mg/dL LAB CHEMISTRY METHOD 07/13/2024 6:42 PM [facility] Blood Venous blood specimen / Unknown Venipuncture / Unknown 07/13/2024 3:31 PM EST 07/13/2024 3:31 PM EST us Micaela RODRIGUEZ LAB BLOOD ORDERABLES Final Result [facility] [address] [place] [address], [place] [phone] * SCREENING MAMMOGRAPHY BI 2-VIEW BREAST INC CAD (04/24/2024 10:34 AM EDT) Anatomical Region Laterality Modality Radiographic Daisy ging 04/19/2024 9:29 AM EDT Narrative 04/24/2024 6:37 PM EDT This is a summary report. The complete report is available in the patient's medical record. If you cannot access the medical record, please contact the sending organization for a detailed fax or copy. BILATERAL 3D DIGITAL SCREENING MAMMOGRAM History: Routine screening. ??No current breast complaints. ??History of reduction mammoplasty. Comparison: Multiple priors dating back to 01/28/2021 Technique: Bilateral full-field digital 3D mammography was performed using standard CC and MLO projections CAD was used to evaluate this mammogram. Findings: Density: ??There are scattered areas of fibroglandular density-B RIGHT: No suspicious masses,. ??Scattered typically benign calcifications. ??Groups of microcalcification or areas of architectural distortion identified. ??Scattered typically benign calcifications LEFT: No suspicious masses, groups of microcalcifications or areas of architectural distortion identified. Stable typically benign parenchymal asymmetries. ??Scattered typically benign calcifications IMPRESSION: : 1. ??No mammographic evidence of malignancy. BI-RADS Category 2 benign findings Recommendation: Routine annual screening mammography is recommended [facility] [address] [place] [id number] Procedure Note Niko Mathis MD - 05/02/2024 This is a summary report. The complete report is available in thepatient's medical record. If you cannot access the medical record, pleasecontact the sending organization for a detailed fax or copy. BILATERAL 3D DIGITAL SCREENING MAMMOGRAM History: Routine screening. No current breast complaints. History ofreduction mammoplasty. Comparison: Multiple priors dating back to 01/28/2021 Technique: Bilateral full-field digital 3D mammography was performed usingstandard CC and MLO projections CAD was used to evaluate this mammogram. Findings: Density: There are scattered areas of fibroglandular density-B RIGHT: No suspicious masses,. Scattered typically benign calcifications. Groupsof microcalcification or areas of architectural distortion identified.Scattered typically benign calcifications LEFT: No suspicious masses, groups of microcalcifications or areas ofarchitectural distortion identified. Stable typically benign parenchymalasymmetries. Scattered typically benign calcifications IMPRESSION: : 1. No mammographic evidence of malignancy. BI-RADS Category 2 benign findings Recommendation: Routine annual screening mammography is recommended [id number] [place] [address] Marisel Ojeda MD IMG XR PROCEDURES Final Result * Colonoscopy (06/03/2021) Colonoscopy No interpretation , Abstracted Anatomical Region Laterality Modality Other [facility] Provider HEALTH MAINTENANCE Final Result * Hepatitis C Screening (03/04/2021) Pathologist [facility] Hepatitis C Screening Abstracted [facility] Provider HEALTH MAINTENANCE Final Result * Pap Smear (2016) Pathologist [facility] Pap smear Negative, Abstracted [facility] Provider HEALTH MAINTENANCE Final Result from Last 3 Months or Most Recently Relevant to Health Maintenance Additional Health Concerns Active Problems Noted Date Diagnosed Date Impaired Tissue 05/24/2024 Education needed on impact of smoking on wound 1 07/24/2023 Education needed related to ulceration/compromised skin integrity. 05/24/2024 Insurance [facility] Care Teams Securities Trader Relationship Specialty Start Date End Date Marisel Ojeda MD [address] [place] [address] PCP - General Internal Medicine 12/12/02
== END 2024-10-19 09:13 | disposition home or self-care (01) ==
LOC: HO.HVS 08:33
PROVIDERS: PCP Internal Medicine; Visit Provider Physician Assistant Surgical
DX: I83.11 Varicose veins of right lower extremity with inflammation (principal); I83.12 Varicose veins of left lower extremity with inflammation
CPT/HCPCS: 99214

== ENCOUNTER → 2024-10-19 08:32 | Outpatient (BNVA) | payer OTHER, SELFPAY | PROVIDERS: PCP Internal Medicine; Visit Provider Physician Assistant Surgical | DX: I83.11 Varicose veins of right lower extremity with inflammation (principal); I83.12 Varicose veins of left lower extremity with inflammation | CPT/HCPCS: 99212 ==

== ENCOUNTER 2024-11-20 13:37 | Outpatient (REF) | payer OTHER, SELFPAY ==
--- NOTE | ~2024-11-20 | US_ITS ---
EXAMINATION: US LOWER EXTREMITY VENOUS (REFLUX EXAM), BILATERAL CLINICAL INFORMATION: Status post bilateral venous harvest system. COMPARISON: None. TECHNIQUE: Color flow triplex imaging and compression Doppler was performed to evaluate both the deep and the superficial systems bilaterally. To evaluate the superficial system, the examination was performed in the upright position. Color-flow Doppler ultrasound and compression ultrasound were utilized. In addition, maneuvers were utilized to demonstrate reflux. FINDINGS: 1. DEEP VENOUS ULTRASOUND OF THE RIGHT LOWER EXTREMITY: Common Femoral Vein: Compressible, normal respiratory variation and augmented flow. Femoral Vein: Compressible, normal color flow and augmentation. Popliteal Vein: Compressible, normal augmentation. Deep Reflux: There is no evidence of reflux in the deep system in either the common femoral vein, superficial femoral or the popliteal vein. There is no evidence of a Bell's cyst. 2. SUPERFICIAL ULTRASOUND WITH DOPPLER OF RIGHT LOWER EXTREMITY: GREAT SAPHENOUS VEIN: Not present. DUPLICATED MEDIAL GREAT SAPHENOUS VEIN: Diameter: None imaged Reflux: NA DUPLICATED LATERAL GREAT SAPHENOUS VEIN: Diameter: None imaged Reflux: NA SMALL SAPHENOUS VEIN: Saphenopopliteal Junction: 0.2 cm; Reflux: 0 ms Proximal: 0.3 cm; Reflux: 0 ms Distal: 0.1 cm; Reflux: 0 ms VEIN OF GIACOMINI: Size: NA Reflux: NA PERFORATORS: Location: Small saphenous vein mid segment. Mid calf and heel. Size: 0.5 cm. Reflux: 2284 ms at the heel. VARICOSITIES: Location: Small saphenous vein mid segment and at the junction. Proximal thigh to the lower extremity. Size: 0.3-0.7 cm. Reflux: 2404 ms from the proximal thigh to the ankle. 788 ms at the mid segment of the small saphenous vein. 3. DEEP VENOUS ULTRASOUND OF THE LEFT LOWER EXTREMITY: Common Femoral Vein: Compressible, normal respiratory variation and augmented flow. Femoral Vein: Compressible, normal color flow and augmentation. Popliteal Vein: Compressible, normal augmentation. Deep Reflux: There is no evidence of reflux in the deep system in either the common femoral vein, superficial femoral or the popliteal vein. There is no evidence of a Bell's cyst. 4. SUPERFICIAL ULTRASOUND WITH DOPPLER OF LEFT LOWER EXTREMITY: GREAT SAPHENOUS VEIN: Not present. DUPLICATED MEDIAL GREAT SAPHENOUS VEIN: Diameter: None imaged Reflux: NA DUPLICATED LATERAL GREAT SAPHENOUS VEIN: Diameter: None imaged. Reflux: NA SMALL SAPHENOUS VEIN: Saphenopopliteal Junction: 0.3 cm; Reflux: 0 ms Proximal: 0.3 cm; Reflux: 0 ms Distal: 0.1 cm; Reflux: 2360 ms VEIN OF GIACOMINI: Size: 0.2 cm. Reflux: NA PERFORATORS: Location: Small saphenous vein mid segment. Distal calf and heel . Size: 0.5-0.6 cm. Reflux: 2492 ms at the heel. VARICOSITIES: Location: Small saphenous vein distal segment at the junction and throughout the lower extremity from the mid thigh to the ankle. Size: 0.4-0.7 cm. Reflux: 3104 ms in the distal segment, small saphenous vein and 2824 ms throughout the mid thigh to the ankle. US/US venous duplex LE BI IMPRESSION: Right: Varices with reflux throughout the lower extremity. Perforators with reflux of the heel. Left: Varices with reflux throughout the lower extremity. Perforators without reflux at the heel. Electronically signed by: Keith Roberts MD 11/20/2024 02:55 PM EDT
--- OUTSIDE RECORDS SUMMARY | 2024-11-20 13:40 | XMS_ITS | Clinical Summary ---
Author Organization [facility] Address [address] [place] [address] Care Team Providers Care Watcher [employer] Name Role Phone Tianna Holt DMD Primary Care Provider [phone] Source Comments PLEASE NOTE, if this patient [...] Plan of Treatment Not on file Insurance [facility] Member Subscriber Plan / Payer (Ef fective 2015-Present) Name:HuShayla marquez Relation to Subscriber:Self Name:Shayla Hu Payer ID:[id number] Group ID:Not on file Type:Medicaid Address: [address] [address] Care Teams Watcher [employer] Relationship Specialty Start Date End Date Tianna Holt DMD [address] [place] [address] PCP - General 03/16/19
--- OUTSIDE RECORDS SUMMARY | 2024-11-20 13:40 | XMS_ITS ---
Author Organization [facility] Address [address] [place] [address] Phone Care Team Providers Care Wick And Base Assembler Name Role Phone Marisel Ojeda MD Primary Care Provider [phone] [facility] - Transportation Status:Ongoing (Active) Start date:07/21/2024 Enrollment date:07/21/2024 Related social drivers of health:Transportation Related program episode:Community Health Worker Program (Closed) Overview Community Health Worker Program - Transportation Service Episode Case Team Name Relationship Phone Ruben Hubbard Community Health Worker(Respons ible Staff) Continued Care and Services Coordination
--- OUTSIDE RECORDS SUMMARY | 2024-11-20 13:40 | XMS_ITS | Encounter Summary ---
Author Organization [facility] Address [address] [place] [address] Care Team Providers Care Test Borer Name Role Phone Marisel Ojeda MD Primary Care Provider [phone] Reason for Referral * Imaging (Routine) - Pending Review Specialty Diagnoses / Procedures Referred By Ria joseph Referred To Contact Radiology Diagnoses Lung nodules Procedures CT Chest wo Contrast Mariely Yi MD [address] [address] Phone: tel: fax: [facility] Referral ID Status Reason Start Date Expiration Date V isits Requested Visits Authorized [id number] Pending Review 11/20/2024 11/20/2025 1 1 Reason for Visit * Reason Comments Follow-up Encounter Details Date Type Department Care Team ([facility] st Contact Info) Description 11/20/2024 9:30 AM EDT Office Visit Pulmonolgy - [address] [place] [address] Mariely Yi MD 175 [facility] [address] [place] [address] Lung nodules (Primary Dx); Abnormal chest CT; Mild persistent asthma, unspecified whether complicated Social History Tobacco Use Types Packs/Day Years [...] Industry Job Start Date Job End Date [employer] Not on file Not on file Not on file documented as of this encounter Last Filed Vital Signs Vital Sign Reading Time Taken Comments Blood Pressure 125/64 11/20/2024 9:28 AM EDT Pulse 79 11/20/2024 9:28 AM EDT Temperature 36.2 ??C (97.2 ??F) 11/20/2024 9:28 AM ED T Respiratory Rate 16 11/20/2024 9:28 AM EDT Oxygen Saturation 97% 11/20/2024 9:28 AM EDT Inhaled Oxygen Concentration - - Weight 83.6 kg (184 lb 6.4 oz) 11/20/2024 9:28 A M EDT Height 157.5 cm (5' 2 ) 11/20/2024 9:28 AM EDT Body Mass Index 33.73 11/20/2024 9:28 AM EDT documented in this encounter Ordered Prescriptions Prescription Sig Dispense Quantity Refills Last Filled Start Date End Date albuterol HFA (PROAIR HFA ; PROVENTIL HFA ; VENTOLIN HFA) 90 mcg/actuation inhalerIndications :Mild persistent asthma, unspecified whether complicated Inhale 2 puffs by mouth every 6 (six) hours if needed for wheezing or shortness of breath. 3 each 3 11/20/2024 documented in this encounter Progress Notes * Mariely Yi MD - 11/20/2024 9:30 AM EDT ADULT PULMONARY Followup CHIEF COMPLAINT or REASON FOR CONSULTATION: Follow-up Last seen 05/17/2024. Prior seen by office coordinator, Dr. Micheal Brown 01/26/2023 HISTORY OF PRESENT ILLNESS: Shayla Hu is a 59 y.o. old, asthma, lung nodules, allergic rhinitis, HTN, PVD, HLD, insulin requiring DM, GERD w/ Kilpatrick esophagus, and refractory niyah left foot osteomyelitis. COVID vaccination: Moderna. Non-smoker. No marijuana smoke/recreational inhalation injury. Occupation: Unemployed. Past [place] din[employer]. No occupation chemical or fume exposure. No tuberculosis or asbestos exposure. Pets: None FH: No known family history of lung disease or cancer. ACT: 24. Since last seen: - Chest CT, 05/29/2024, previous ANTONIO 6 mm groundglass nodule resolved. RLL along the fissure 8 x 7 mm nodule, RUL multiple 3 to 5 mm nodule, RLL 4 mm nodule, left major fissure 4 mm in nodule, no newlung nodule, and no gross mediastinal hilar adenopathy. - Not been hospitalized. REVIEW OF SYSTEMS: Review of Systems Constitutional: Negative for chills, decreased appetite, diaphoresis, fever, malaise/fatigue and night sweats. HENT: Negative for congestion. Cardiovascular: Positive for dyspnea on exertion. Negative for chest pain, irregular heartbeat and leg swelling. Respiratory: Positive for wheezing. Negative for cough, hemoptysis, shortness of breath, snoring and sputum production. Endocrine: Negative for cold intolerance and heat intolerance. Skin: Negative for rash. Gastrointestinal: Negative for abdominal pain, constipation, diarrhea and dysphagia. Genitourinary: Negative for dysuria. ALLERGIES: Allergies Allergen Reactions Doxycycline Pain Chest tightness Ibuprofen Pain & Ibuprofen Micronized: Chest tightness Lidocaine Swelling and Rash Oral / enteral lidocaine Lidocaine Hcl Swelling and Rash Oral / enteral lidocaine Liraglutide Nausea And Vomiting, Headache and Cramps Sulfamethoxazole-Trimethoprim Cramps Humalog Venkat Kwikpen U-100 [Insulin Lispro] Cramps Trimethoprim Trulicity [Dulaglutide] GI intolerance ACTIVE MEDICATIONS: Outpatient Medications Marked as Taking for the 11/20/24 encounter (Office Visit) with Mariely Yi MD Medication Sig Dispense Refill alpha lipoic acid 50 mg capsule Take [...] (one) time each day in the morning. multivitamin tablet Take 1 tablet by mouth [...] needed (heartburn). ZINC ORAL Take by mouth. [DISCONTINUED] montelukast (SINGULAIR) 10 mg tablet Take 1 Tablet by mouth at bedtime. PROVIDER ATTESTS THAT THE MEDICATION LIST WAS OBTAINED, REVIEWED AND UPDATED. PAST MEDICAL HISTORY: Patient Active Problem List Diagnosis Date Noted DM (diabetes mellitus), type 2 with peripheral vascular complications (CMS/HCC V24, [facility] V28) 06/06/2024 Chronic refractory osteomyelitis of foot, left ([facility] [place], [facility] [place]28) 05/08/2024 Type 2 diabetes mellitus with foot ulcer ([facility] [place], [facility] V28) 05/08/2024 Peripheral vascular disease, unspecified ([facility] [place]) 05/08/2024 Emphysema/COPD ([facility] [place]24, [facility] V28) 04/04/2024 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[place]24) 03/02/2024 Pulmonary nodules 12/23/2021 Restrictive lung disease 12/23/2021 Vitamin D insufficiency 12/10/2021 Depression 02/27/2021 Microalbuminuria 12/11/2020 Type II diabetes mellitus with renal manifestations ([facility] [place], [facility] V28) 05/20/2020 Type 2 diabetes with ophthalmic manifestation ([facility] [place], [facility] V28) 01/27/2018 Genital herpes simplex 09/03/2017 Severe obesity (BMI 35.0-35.9 with comorbidity) ([facility] [place]24, [facility] V28) 02/03/2017 Diabetic gastroparesis ([facility] [place], [facility]28) 05/06/2016 GERD (gastroesophageal reflux disease) 05/06/2016 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 02/11/2016 Erosive esophagitis 02/11/2016 Nodule of esophagus 02/11/2016 Tubular adenoma of colon 02/11/2016 Irritable bowel syndrome without diarrhea 11/04/2015 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 SCIENTIST (background diabetic retinopathy) ([facility] [place], [facility]) 08/01/2015 Lichen simplex chronicus 01/16/2015 Allergic rhinitis 02/23/2014 Varicose veins of lower extremity 02/24/2013 Asthma 11/02/2012 Hyperlipidemia 05/10/2012 Type 2 diabetes mellitus with neurological manifestations ([facility] [place], [facility]) 05/10/2012 Past Surgical History: Procedure Laterality Date BREAST REDUCTION 2004 CHOLECYSTECTOMY 1989 COLONOSCOPY 12/12/2015 : Polyps x 3: adenomas; repeat under propofol in 3 yrs ESOPHAGOGASTRODUODENOSCOPY 12/12/2015 Esophagitis, GEJ nodularity, normal stomach and duodenum NECK SURGERY 2001 C5-6 fusion VEIN SURGERY 1986 WISDOM TOOTH EXTRACTION 1991 Past Surgical History: Procedure Laterality Date BREAST REDUCTION 2004 CHOLECYSTECTOMY 1989 COLONOSCOPY 12/12/2015 : Polyps x 3: adenomas; repeat under propofol in 3 yrs ESOPHAGOGASTRODUODENOSCOPY 12/12/2015 Esophagitis, GEJ nodularity, normal stomach and duodenum NECK SURGERY 2001 C5-6 fusion VEIN SURGERY 1987 WISDOM TOOTH EXTRACTION 1991 FAMILY HISTORY: Family History Problem Relation Name Age of Onset Pneumonia Mother No Known Problems Father Diabetes Maternal Grandmother Diabetes Maternal Grandfather No Known Problems Paternal Grandmother No Known Problems Paternal Grandfather Asthma Daughter Breast cancer Neg Hx Colon cancer Neg Hx Prostate cancer Neg Hx SOCIAL HISTORY Social History Socioeconomic History Marital status: Spouse name: Not on file Number of children: Not on file Years of education: Not on file Highest education level: Not on file Occupational History Occupation: [employer] Tobacco Use Smoking status: Never Smokeless tobacco: Never Substance and Sexual Activity Alcohol use: No Drug use: No Sexual activity: Not Currently Other Topics Concern Not on file Social History Narrative 2016: lives with daughter and son-in-law, works at [employer] 2017: as above IMMUNIZATION: Immunization History Administered Date(s) Administered Influenza Quadravalent, [...] recombinant (Shingrix) 19yo and older 12/11/2020, 05/12/2021 PHYSICAL EXAM: Visit Vitals BP 125/64 Pulse 79 Temp 36.2 ??C (97.2 ??F) (Temporal) Resp 16 Ht 1.575 m (62 ) Wt 83.6 kg (184 lb 6.4 oz) SpO2 97% BMI 33.73 kg/m?? OB Status Postmenopausal Smoking Status Never BSA 1.85 m?? Physical Exam Constitutional: General: She is not in acute distress. Appearance: Normal appearance. She is not ill-appearing. HENT: Head: Normocephalic and atraumatic. Nose: Nose normal. No congestion or rhinorrhea. Mouth/Throat: Mouth: Mucous membranes are moist. Pharynx: No oropharyngeal exudate or posterior oropharyngeal erythema. Eyes: Pupils: Pupils are equal, round, and reactive to light. Cardiovascular: Rate and Rhythm: Normal rate and regular rhythm. Pulses: Normal pulses. Heart sounds: No murmur heard. Pulmonary: Effort: Pulmonary effort is normal. No respiratory distress. Breath sounds: Normal breath sounds. No stridor. No wheezing, rhonchi or rales. Abdominal: General: Bowel sounds are normal. Palpations: Abdomen is soft. Tenderness: There is no abdominal tenderness. Musculoskeletal: Right lower leg: No edema. Left lower leg: No edema. Neurological: Mental Status: She is alert. Diagnostic: CURRENTS ICD-10 PULMONARY DIAGNOSIS 1. Lung nodules 2. Abnormal chest CT ASSESSMENT/PLAN: 1. Asthma, Mild persistent -Pathophysiology of asthma was discussed. Treatment options of the various inhalers, along with techniques of use, and side effects were discussed. Maintenance of care of obstructive lung disease health such as various vaccinations, smoking cessation & avoidance of chemicals/fumes/inhalants were discussed. All questions were answered. -Continue w/ albuterol MDI, 2 puffs every 6 hrs as needed. 2. Lung nodules. -Reviewed and discussed,. chest CT 05/2024, findings. -Pathophysiology, differential diagnosis, and diagnostic option regarding lung nodule were discussed with patient. All question answered. -Await for follow-up chest CT, order placed. 3. Mild restrictive lung disease, due to obesity. -Follow up with Marisel Ojeda MD for the other co-morbilities. RETURN TO THE NEXT VISIT: Based on physical exam, symptomatology, tests requested and baseline pulmonary evaluation/disease, I instructed the patient to come back to see me in 6-7 months for reevaluation after the test has been done or earlier if the patient needed. Thanks Marisel Ojeda MD for allowing me to have the opportunity to assist in the care of this patient. This chart was generated by the [employer] EMR system and [employer] speech recognition software and may contain inherent errors or omissions not intended by the user. Grammatical errors, random word insertions, deletions, pronoun errors and incomplete sentences are occasional consequences of this technologydue to software limitations. Not all errors are caught or corrected. If there are questions or concerns about the content of this note or information contained within the body of this dictation they should be addressed directly with the author for clarification. @ELECSIG@ documented in this encounter Plan of Treatment Upcoming Encounters Date Type Department Care Team (Late st Contact Info) Description 01/10/2025 8:30 AM EDT Office Visit [address] [phone] Micaela Carroll [place] [facility] [place] [address] 01/10/2025 1:15 PM EDT Office Visit Adult Medicine [address] [phone] Marisel Ojeda MD [address] [place] [id number] 01/16/2025 10:45 AM EDT Office Visit Orthopedic Surgery [facility] [address] [phone] Dion Sierra DPM [address] [address] 05/24/2025 9:30 AM EST Office Visit Pulmonolgy - [place] [address] [phone] Mariely Yi MD [address] [address] Scheduled Orders Name Type Priority Associated Diagnoses Orde r Schedule CT Chest wo Contrast Imaging Routine Lung nodules Expected: 05/29/2025, Expires: 11/20/2025 documented as of this encounter Goals Goal [...] as of this encounter Visit Diagnoses Diagnosis Lung nodules- Primary Other diseases of lung, not elsewhere classified Abnormal chest CT Nonspecific (abnormal) findings on radiological and other examination of other intrathoracic organs Mild persistent asthma, unspecified whether complicated documented in this encounter Discontinued Medications Medication Sig Discontinue Reason Start Date End Da te montelukast (SINGULAIR) 10 mg tablet Take 1 Tablet by mouth at bedtime. 12/29/2023 11/20/2024 documented as of this encounter Additional Health Concerns Active Problems Noted Date Diagnosed Date Impaired Tissue 05/24/2024 Education needed on impact of smoking on wound 1 07/24/2023 Education needed related to ulceration/compromised skin integrity. 05/24/2024 documented as of this encounter Care Teams Test Borer Relationship Specialty Start Date End Date Marisel Ojeda MD [address] [place] [address] PCP - General Internal Medicine 12/12/02 documented as of this encounter
--- OUTSIDE RECORDS SUMMARY | 2024-11-20 13:40 | XMS_ITS | Clinical Summary ---
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 03/27/20 24 Active atorvastatin (LIPITOR) 40 mg tablet Take 1 Tablet by mouth at bedtime. 12/29/19 24 Active cetirizine (ZyrTEC) 10 mg tablet Take 1 Tablet by mouth at bedtime. 12/29/19 24 Active OMEGA-3 FATTY ACIDS ORAL Take by mouth. Acti ve ZINC ORAL Take by mouth. Activ e ammonium lactate (AmLactin) 12 % lotion Apply topically if needed for dry skin. 400 g 2 05/10/20 24 025 Active albuterol HFA (PROAIR HFA ; PROVENTIL HFA ; VENTOLIN HFA) 90 mcg/actuation inhaler Inhale 2 puffs by mouth every 6 (six) hours if needed for wheezing or shortness of breath. 1 each 06/04/20 24 025 Active multivitamin tablet Take 1 tablet by [...] the skin at bedtime. 15 mL 1 06/13/20 24 Active pantoprazole (PROTONIX) 40 mg EC tablet Take 1 tablet (40 mg total) by mouth 1 (one) time each day. Take in a.m. on empty stomach, wait 30 minutes and then eat to activate medication 30 each 06/26/20 24 025 Active cholecalciferol (VITAMIN D-3) 50 mcg (2,000 unit) capsule TAKE 1 CAPSULE BY MOUTH EVERY DAY 90 capsule 1 07/26/19 25 Active BD Faye 2nd Gen Pen Needle 32 gauge x 5/32 needle USE WITH INSULIN PEN TWICE DAILY 200 each 07/26/19 25 Active EPINEPHrine (EPIPEN) 0.3 mg/0.3 mL injection INJECT 1 EACH DIRECTED CONTINUOUS NEEDED FOR OTHER (ANAPHYLAXIS). 1 each 1 08/09/19 25 Active Dupixent Syringe 300 mg/2 mL syringe 09/05/19 25 Active diphenhydrAMINE (BENADRYL) 25 mg tablet Take 10 mg by mouth at bedtime as needed for sleep. Active albuterol HFA (PROAIR HFA ; PROVENTIL HFA ; VENTOLIN HFA) 90 mcg/actuation inhalerIndicati ons:Mild persistent asthma, unspecified whether complicated Inhale 2 puffs by mouth every 6 (six) hours if needed for wheezing or shortness of breath. 3 each 3 11/21/19 25 026 Active montelukast (SINGULAIR) 10 mg tablet Take 1 Tablet by mouth at bedtime. 12/29/19 24 025 Discontinued metoclopramide (REGLAN) 5 mg tablet Take 1 tablet (5 mg total) by mouth 4 (four) times a day. 120 each 09/30/19 25 025 Active Problems Problem Noted Date Diagnosed Date DM (diabetes mellitus), type 2 with peripheral vascular complications ([facility] [place], [facility] V28) 06/06/2024 Chronic refractory osteomyel itis of foot, left ([facility] V24, [facility] V28) 05/08/2024 Type 2 diabetes mellitus wit h foot ulcer ([facility] V24, [facility] V28) 05/08/2024 Peripheral vascular disease, unspecified ([facility] V24) 05/08/2024 Emphysema/COPD ([facility] V24, [facility] V28) 2023 Cryoglobulinemia ([facility] V24) 03/02/2024 Pulmonary nodules 12/23/2021 Overview (08/13/2024): Restrictive lung disease 12/23/2021 Overview (04/04/2024): Last Assessment & Plan: Likely due to extrathoracic restriction. Vitamin D insufficiency 12/10/2021 Depression 02/27/2021 Microalbuminuria 12/11/2020 Type II diabetes mellitus wi th renal manifestations ([facility] V24, [facility] V28) 05/20/2020 Type 2 diabetes with ophthal jory manifestation ([facility] V24, [facility] V28) 01/27/2018 Genital herpes simplex 09/03/2017 Severe obesity (BMI 35.0-35. 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 Repeat EGD in 2019. 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 Dr. Valiente. Asthma 11/02/2012 Overview (08/13/2024): Hyperlipidemia 05/10/2012 Type 2 diabetes mellitus wit h neurological manifestations ([facility] V24, [facility] V28) 05/10/2012 Resolved Problems Problem Noted Date Diagnosed Date Resolved Date Skin ulcer of left great toe , limited to breakdown of skin ([facility] V24, [facility] V28) 05/25/2024 06/06/2024 Chronic osteomyelitis with d raining sinus, left ankle and foot ([facility] V24, [facility] V28) 05/10/2024 06/06/2024 Non-pressure chronic ulcer o f other part of right foot with bone involvement without evidence of necrosis ([facility] V24, [facility] V28) 05/08/2024 06/06/2024 Osteomyelitis ([facility], [facility] V28) 12/29/2023 06/06/2024 Overview (04/04/2024): 12/26 left first toe Encounters Date Type Department Care Team Description 11/20/2024 9:30 AM EDT Office Visit Pulmonolgy - [place] 175 [facility] [address] [place] [phone] Mariely Yi MD Lung nodules (Primary Dx); Abnormal chest CT; Mild persistent asthma, unspecified whether complicated 11/14/2024 8:15 AM EDT Office Visit Orthopedic Surgery [facility] [address] [phone] Dion Sierra DPM Controlled type 2 diabetes mellitus with diabetic polyneuropathy, without long-term current use of insulin ([facility] V24, [facility] V28) (Primary Dx); Bunion, left; Arthritis of both feet; Venous insufficiency; Onychomycosis 10/20/2024 Telephone Obstetrics and Gynecology - [address] [phone] [place] 10/18/2024 8:45 AM EDT Office Visit Obstetrics and Gynecology - [place] [address] [place] [phone] John Savage CNM Encounter for annual routine gynecological examination (Primary Dx) 10/04/2024 Telephone Gastroenterology - [place] [address] [phone] Robert Gomez PA provider call back 09/29/2024 7:39 AM EDT Anesthesia Event [facility] Endoscopy [address] [place] [phone] Henrik Soni DO Millay, Julia, CRNA 09/29/2024 6:55 AM EDT - 09/29/2024 11:59 PM EDT Hospital Encounter [facility] Endoscopy [address] [place] [phone] Cristina Owusu MD Millay, Julia, CRNA Dasilva, John E, MD Kilpatrick's esophagus Discharge Disposition: Home or Self Care 09/14/2024 8:30 AM EDT Office Visit Orthopedic Surgery [facility] [address] [phone] Dion Sierra DPM Controlled type 2 diabetes mellitus with diabetic polyneuropathy, without long-term current use of insulin ([facility] V24, [facility] V28) (Primary Dx); Bunion, left; Venous insufficiency; Arthritis of both feet; Onychomycosis from Last 3 Months Immunizations Name Administration [...] Tubular adenoma of colon 02/11/2016 Diabetic gastroparesis ([facility] V24, [facility] V28) 05/06/2016 Type 2 diabetes with ophthal jory manifestation ([facility] V24, [facility] V28) 01/27/2018 ) Type 2 diabetes mellitus wit h neurological manifestations ([facility], [facility] V28) 05/10/2012 Varicose veins of lower extremity 02/24/2013 Severe, bilaterally w/ pain. Dr. Valiente. Genital herpes simplex 09/03/2017 Allergic rhinitis 02/23/2014 Dependence on nocturnal oxygen therapy 01/27/2018 Gastroesophageal reflux dise ase with esophagitis 01/27/2018 Severe obesity (BMI 35.0-35. 9 with comorbidity) ([facility] V24, [facility] V28) 02/03/2017 Depression 02/27/2021 Cryoglobulinemia ([facility] V24) 03/02/2024 Hypertension COPD (chronic obstructive pu lmonary disease) ([facility] V24, [facility] V28) Type II diabetes mellitus wi th renal manifestations ([facility] V24, [facility] V28) 05/20/2020 DM (diabetes mellitus), type 2 with peripheral vascular complications ([facility] V[facility], [facility] V28) 06/06/2024 Emphysema of lung ([facility] V 24, [facility] V28) GERD (gastroesophageal reflux disease) Family History [...] 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 Not on file Not on file Obstetrics History Para Term AB IAB SAB Ectopic Multiple Livin g Live Births 3 1 1 2 2 1 1 Date Outcome GA Total Labor Labor//3rd Weight Sex Type Anes PTL Iram A1 [...] Mass Index 33.73 11/20/2024 9:28 AM EDT Plan of Treatment Upcoming Encounters Date Type Department Care Team (Late st Contact Info) Description 01/10/2025 8:30 AM EDT Office Visit [address] [phone] Micaela Carroll PA [address] [place] [phone] 01/10/2025 1:15 PM EDT Office Visit Adult Medicine [address] [phone] Marisel Ojeda MD [address] [place], [place] 01/16/2025 10:45 AM EDT Office Visit Orthopedic Surgery - [place] [address] [phone] Dion Sierra DPM [address] [phone] 05/24/2025 9:30 AM EST Office Visit Pulmonolgy - [place] 175 [facility] [address] [place] [phone] Mariely Yi MD [address] [place] [phone] Health Maintenance Due Date Last Done Comments Diabetes: Annual Foot Exam 1975 Diabetes: Annual Retina Eye Exam 1975 Hepatitis B Vaccines (1 of 3 - 19+ 3-dose series) 1984 Depression Screening 06/13/2022 HIV Screening 06/13/2022 Social [...] Screening (Lipid Panel) 07/13/2029 07/13/2024, 12/28/2023, 12/28/2023 Cervical Cancer Screening: HPV 10/18/2029 10/18/2024 DTaP,Tdap,and Td Vaccines (3 - Td or [...] related to ulceration/compr omised skin integrity. No Wurszt, Nasra E, accessioner Procedure Name Priority Date/Time Associated Diagnosis Comments PAP SMEAR Routine 10/18/2024 8:53 AM EDT Encounter for annual routine gynecological examination HPV WITH REFLEX GENOTYPE Routine 10/18/2024 8:53 AM EDT Encounter for annual routine gynecological examination TH AN ENDOTRACHEAL(NO CHARGE) Routine 09/29/2024 8:23 AM EDT EGD Routine 09/29/2024 8:16 AM EDT Kilpatrick's esophagus TISSUE EXAM Routine 09/29/2024 7:59 AM EDT Kilpatrick's esophagus MICROALBUMIN CREATININE URINE RATIO Routine 07/13/2024 3:31 PM EST Type 2 diabetes mellitus with neurological manifestations (CMS/HCC V24, CMS/HCC V28) BASIC METABOLIC PANEL Routine 07/13/2024 3:31 [...] neoplasm of breast HM COLONOSCOPY Routine 06/03/2021 HEPATITIS C SCREENING Routine 03/04/2021 from Last 3 Months or Most Recently Relevant to Health Maintenance Results * HPV with reflex genotype (10/18/2024 8:53 AM EDT) HPV Negative Negative LAB MICROBIOLOGY METHOD 10/19/2024 1:[address] [facility] Brushing/Spatula Cervix uteri structure / Unknown 10/18/2024 8:53 AM EDT 10/19/2024 6:21 AM EDT John Savage [facility] MOLECULAR DIAGNOSTICS CYRUS MEDINA Final Result [facility] [address] [place] [address], * Pap smear (10/18/2024 8:53 AM EDT) Interpretation Negative for intraepithelial lesion or malignancy 10/20/2024 4:[address] [facility] General Categorization Negative 10/20/2024 4:[address] [facility] Other Findings Atrophy 10/20/2024 4:[address] [facility] Specimen Adequacy Satisfactory for evaluation 10/20/2024 4:[address] [facility] Pap Methodology Liquid Based Pap Test 10/20/2024 4:[address] [facility] Disclaimer The Pap test is a screening test which carries an inherent false negative rate. These test results should be correlated with the patient's clinical findings and history. This Pap test was processed using an automated screening system. Technical cytopathology services provided by [facility], at [address] [place] [address] (CLIA # [id number]/Dion Cordero MD, Debit Agent.) 10/20/2024 4:[address] [facility] Console Pap Interpretation Reported 10/20/2024 4:[address] [facility] Brushing/Spatula Cervix uteri structure / Unknown 10/18/2024 8:53 AM EDT 10/18/2024 8:53 AM EDT John HOLDER LAB CYTOLOGY ORDERABLES Final Result [facility] ([facility]) [facility] [address] [place] [address], [place] [phone] * TH AN ENDOTRACHEAL(NO CHARGE) (09/29/2024 8:23 AM EDT) Narrative Rola Ziegler CRNA - 09/29/2024 8:23 AM EDT Rola Ziegler CRNA ? 09/29/2024 ??8:25 AM General Information and Staff Patient location during procedure: [facility] ([facility]) Performed by: Rola Ziegler CRNA Authorized by: Henrik Soni DO ?? Intubation Airway not difficult Urgency: [...] not attempted Start Time: 09/29/2024 7:50 AM Henrik Soni DO ANESTHESIA ORDERABLES Final Result * EGD Anesthesia - MAC; [facility] ENDOSCOPY (09/29/2024 8:16 AM EDT) Anatomical Region [...] and HS. Narrative 09/29/2024 8:05 AM EDT [facility] GI Patient Name: Shayla Hu Procedure [...] verified by the physician, the nurse, the diamond assorter ? and the ultrasound technician in the pre-procedure area in the [...] Procedure Code(s): ? --- Professional --- ? 12356, Esophagogastroduodenoscopy, flexible, ? transoral; with biopsy, single or multiple Diagnosis Code(s): ? --- Professional --- ? 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 All rights reserved. The codes documented in this report are preliminary and upon inpatient coder review may be revised to meet current compliance requirements. Cristina Owusu MD 09/29/2024 8:04:53 AM This report has been signed electronically.Cristina Owusu MD Number of Addenda: 0 Note Initiated On: 09/29/2024 7:39 AM Scope In: Scope Out: ? Endoscopy Department at [facility] - [address] [place] [address], ? [place] [phone] Procedure Note Cristina Owusu MD - 09/29/2024 [facility] GI Patient Name: Shayla Hu Procedure [...] the physician, the nurse, theanesthetist and the ultrasound technician in the pre-procedure area in the [...] the esophagus. 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 All rights reserved. The codes documented in this report are preliminary and upon inpatient coder reviewmay be revised to meet current compliance requirements. Cristina Owusu MD 09/29/2024 8:04:53 AM This report has been signed electronically.Cristina Owusu MD Number of Addenda: 0 Note Initiated On: 09/29/2024 7:39 AM Scope In: Scope Out: Endoscopy Department at [facility] - [address] [place] [phone] IMPRESSION: - Normal examined duodenum. - A [...] gastric component identified. 10/02/2024 10:[address] [facility] Gross Description A. Esophagus, lower biopsy: Labeled esophagus biopsy of . Received in formalin are two soft to friable, white tissue fragments, approximately measuring 0.4 cm and 0.6 cm in greatest diameters, which are wrapped in paper and submitted in toto in one cassette, two pieces, multiple levels. dvb/DG 10/02/2024 10:[address] [facility] Disclaimer Unless otherwise specified, all tissue is 10% NB formalin fixed and paraffin embedded. 10/02/2024 10:[address] [facility] Tissue Esophageal structure / Unknown 09/29/2024 7:59 AM EDT 09/29/2024 10:53 AM EDT [facility] Justin Owusu MD LAB PATHOLOGY ORDERABLES Fi nal Result [facility] [address] [place] [address], * Lipid panel with reflex to direct LDL (07/13/2024 3:31 PM EST) Cholesterol 159 0 - 200 mg/dL LAB CHEMISTRY METHOD 07/13/2024 6:[address] [facility] Triglycerides 53 0 - 150 mg/dL LAB CHEMISTRY METHOD 07/13/2024 6:[address] [facility] HDL 58 >=40 mg/dL LAB CHEMISTRY METHOD 07/13/2024 6:[address] [facility] LDL Calculated 90 0 - 100 mg/dL LAB CHEMISTRY METHOD 07/13/2024 6:[address] [facility] VLDL Cholesterol Jamarcus 10.6 mg/dL LAB CHEMISTRY METHOD 07/13/2024 6:[address] [facility] Non HDL Chol. (LDL+VLDL) 101 <145 mg/dL LAB CHEMISTRY METHOD 07/13/2024 6:46 PM [facility] Chol/HDL Ratio 2.7 0.0 - 4.4 LAB CHEMISTRY METHOD 07/13/2024 6:[address] [facility] Blood Venous blood specimen / Unknown Venipuncture / Unknown 07/13/2024 3:31 PM EST 07/13/2024 3:31 PM EST us Micaela RODRIGUEZ LAB BLOOD ORDERABLES Final Result Performing Organization Address [facility]/ZIP Co de Phone Number [facility] [address] [place] [address], [place] [phone] * (ABNORMAL) Microalbumin creatinine urine ratio (07/13/2024 [...] URINE ORDERABLES Final Result Performing Organization Address [facility]/ZIP Co de Phone Number [facility] [address] [place] [address], [place] [phone] * Hemoglobin A1c (07/13/2024 3:31 PM EST) [facility] Hemoglobin A1C 6.1 <6.5 % LAB CHEMISTRY METHOD 07/13/2024 10:02 PM [facility] Mean Bld Glu Estim. 128 mg/dL LAB CHEMISTRY METHOD 07/13/2024 10:02 PM [facility] Blood Venous blood specimen / Unknown Venipuncture / Unknown 07/13/2024 3:31 PM EST 07/13/2024 3:31 PM EST us Micaela RODRIGUEZ LAB BLOOD ORDERABLES Final Result [facility] [address] [place] [address], [place] [phone] * (ABNORMAL) Basic metabolic panel (07/13/2024 3:31 PM EST) [facility] Sodium 137 133 - 145 mmol/L [...] mg/dL LAB CHEMISTRY METHOD 07/13/2024 6:42 PM EST [facility] Creatinine 0.60 0.50 - 1.10 mg/dL LAB CHEMISTRY METHOD 07/13/2024 6:[address] [facility] eGFR 104 >=60 mL/min/1. 73m2 LAB CHEMISTRY METHOD 07/13/2024 6:[address] [facility] Comment:Calculation based on the??Chronic Kidney Disease Epidemiology Collaboration (CKD-EPI) equation refit??without adjustment for race. BUN/Creatinine Ratio 28.3 LAB CHEMISTRY METHOD 07/13/2024 6:[address] [facility] Calcium 9.0 8.5 - 10.5 mg/dL LAB CHEMISTRY METHOD 07/13/2024 6:[address] [facility] Blood Venous blood specimen / Unknown Venipuncture / Unknown 07/13/2024 3:31 PM EST 07/13/2024 3:31 PM EST us Micaela RODRIGUEZ LAB BLOOD ORDERABLES Final Result [facility] [address] [place] [address], * SCREENING MAMMOGRAPHY BI 2-VIEW BREAST INC [...] Recommendation: Routine annual screening mammography is recommended [address] [address] Procedure Note Niko Mathis MD - 05/02/2024 [...] Recommendation: Routine annual screening mammography is recommended [address] [address] Marisel Ojeda MD IMG XR PROCEDURES Final Result * Colonoscopy (06/03/2021) Pathologist [facility] Colonoscopy No interpretation , Abstracted Anatomical Region Laterality Modality Other Historical Provider HEALTH MAINTENANCE Final Result * Hepatitis C Screening (03/04/2021) Pathologist [facility] Hepatitis C Screening Abstracted Historical Provider HEALTH MAINTENANCE Final Result from Last 3 Months or Most Recently Relevant to Health Maintenance Additional Health Concerns Active Problems Noted Date Diagnosed Date Impaired Tissue 05/24/2024 Education needed on impact of smoking on wound 1 07/24/2023 Education needed related to ulceration/compromised skin integrity. 05/24/2024 Insurance [facility] Care Teams Casino Manager Relationship Specialty Start Date End Date Marisel Ojeda MD [address] [place] [id number] PCP - General Internal Medicine 12/12/02
== END 2024-11-20 13:38 | disposition home or self-care (01) ==
LOC: HO.US 13:37
PROVIDERS: PCP Internal Medicine; Visit Provider Physician Assistant Surgical
DX: I83.11 Varicose veins of right lower extremity with inflammation (principal); I83.12 Varicose veins of left lower extremity with inflammation
CPT/HCPCS: 93970

== ENCOUNTER → 2024-11-20 13:40 | Outpatient (BNV) | payer OTHER, SELFPAY | PROVIDERS: PCP Internal Medicine; Visit Provider Radiology Diagnostic Radiology | DX: I83.813 Varicose veins of bilateral lower extremities with pain (principal) | CPT/HCPCS: 93970 ==

== ENCOUNTER 2024-12-14 13:34 | Outpatient (AMB) | payer OTHER, SELFPAY ==
--- NOTE | 2024-12-14 13:35 | MHC.OFFVIS ---
Intake Visit Reasons: follow up US 11/20/24 Intake Note: Patient presents for follow up US performed on 11/20/24. Patient states she had a rash, starts anytime she wears over the knee socks. Rash not present at the moment. Accompanied by: Self / Same As Patient Allergies benzethonium chloride [From Lanacane Merkel] Allergy (Unknown, Verified 12/14/24 13:40) Unknown benzocaine [From Lanacane Merkel] Allergy (Unknown, Verified 12/14/24 13:40) Unknown dulaglutide [From Trulicity] Allergy (Unknown, Verified 12/14/24 13:40) Unknown liraglutide [From Victoza] Allergy (Unknown, Verified 12/14/24 13:40) Unknown sulfamethoxazole [From Bactrim] Allergy (Unknown, Verified 12/14/24 13:40) Unknown trimethoprim [From Bactrim] Allergy (Unknown, Verified 12/14/24 13:40) Unknown doxycycline Adverse Reaction (Verified 12/14/24 13:40) Chest Pain ibuprofen Adverse Reaction (Verified 12/14/24 13:40) Chest Pain HPI HPI follow up US 11/20/24: Details: Shayla is presenting today on a follow up to US, performed on 11/20/24. She continues to endorse bilateral, left slightly worse than right, lower extremity discomfort and swelling. She states she has been having problems with socks recently; she states every pair that she has been wearing has been giving her legs a rash that can be painful or itchy. She states she continues to work without difficulty. She is due for cataract surgery in February. [facility] Medical History Varicose veins of right lower extremity with inflammation Asthma Hyperlipidemia Type 2 diabetes mellitus Social History Household Members: Children Housing: Apartment Do you presently have visiting nurse or other home services: No Patient Tobacco Use Status: Never used Tobacco service: No Review of Systems Const Reports as per HPI and Denies weakness ENT Reports Normal hearing present and Denies dizziness Card Reports as per HPI, Denies chest pain, Denies chest pain at rest, Denies chest pain with activity, Denies dyspnea and Denies dyspnea on exertion Resp Reports as per HPI, Denies cough, Denies dyspnea and Denies dyspnea on exertion GI Reports as per HPI, Denies abdominal pain, Denies nausea and Denies vomiting Musc Denies numbness Skin/Breast Reports as per HPI, Denies erythema and Denies wounds Neuro Reports Normal hearing present, Denies dizziness, Denies numbness, Denies Sensory deficit (Neuro) and Denies weakness Psych Reports no additional complaints Endo Reports no additional complaints Physical Exam Const General: healthy appearing and no acute distress Orientation/consciousness: patient oriented x3 HEENT Head: Yes normal to inspection Ears: hearing grossly normal bilaterally Mouth: Normal oral and palatal mucosa present Resp Effort & Inspection: normal respiratory effort and able to speak in complete sentences Auscultation: clear to auscultation bilaterally Cardio Jugular venous distension: no JVD Rate: regular rate Rhythm: regular rhythm Heart sounds: S1 normal heart sound present and S2 normal heart sound present Bruits: no abdominal aortic bruits, no carotid bruits, no femoral bruits and no renal bruits Peripheral pulses: Peripheral pulses 2+ throughout GI Inspection: Yes normal to inspection Palpation (GI): No Abdominal aortic bruit present Skin General skin exam: no rashes or lesions noted Wounds: no wounds Hair: normal Neuro General: patient oriented x3 Cranial nerves: Yes Normal hearing present Cognition (Neuro): normal cognition Gait exam (Neuro): Normal gait present Motor exam (neuro): 5/5 motor strength present throughout Sensory Exam: No Sensory deficit (Neuro) Extrem Other: Bilateral lower extremities: significant amount of rope-like varicosities noted on the medial aspect in the upper and lower legs, most around 5-6cm each. Painful to palpation. Varicosities also noted below the knees anteriorly and down the anterior calves. Trace peripheral edema noted. General: Yes normal to inspection, Yes full ROM, Yes capillary refill normal and Yes normal gait Results Reviewed Results Reviewed: Brief summary of venous insufficiency testing is as follows: right great saphenous vein: not seen right small saphenous vein: negative right accessory vein: none present left great saphenous vein: not seen left small saphenous vein: negative left accessory vein: none present Please note there is no evidence of any venous aneurysms or significant tortuosity VARICOSITIES: Location: Small saphenous vein distal segment at the junction and throughout the lower extremity from the mid thigh to the ankle. Size: 0.4-0.7 cm. Reflux: 3104 ms in the distal segment, small saphenous vein and 2824 ms throughout the mid thigh to the ankle. Assessment & Plan Assessment & Plan (1) Varicose veins of both lower extremities with inflammation: Code(s): I83.11 - Varicose veins of right lower extremity with inflammation; I83.12 - Varicose veins of left lower extremity with inflammation Category: Medical Plan: Shayla is presenting today for a follow up to [facility], performed on 11/20. There was no insufficiency found; however, there was varices with reflux found throughout both lower extremities. She continues to endorse bilateral lower extremity swelling with pain and discomfort; there is a significant amount of varicosities noted, left slightly worse than right. Due to the extensive amount/size of the varicosities, she will need a microphlebectomy, but in the OR. She is currently scheduled for cataract surgery in February; we will tentatively schedule her for a left leg micro for the OR for mid-Mar. We discussed the importance of continuing with elevation, compression socks, and physical activity. We will reach out to her when we are able to schedule the surgery. We discussed that if any symptoms worsened, to reach out to our office. If there are any questions or concerns, please do not hesitate to reach out to us. Coding Level of Care Code Est Pt Level 4 (97985) Diagnoses Varicose veins of both lower extremities with inflammation I83.11; I83.12 Comment review of [facility]
--- OUTSIDE RECORDS SUMMARY | 2024-12-14 15:53 | XMS_ITS | Clinical Summary ---
Author Organization 175 [facility] Address [address] [place] [address] Phone Care Team Providers Care Index Editor Name Role Phone Marisel Ojeda MD Primary Care Provider [phone] Allergies Active Allergy Reactions Criticality Noted Date Comments Doxycycline Pain High 09/08/2012 Chest tightness Insulin Lispro Cramps 09/29/2024 Ibuprofen Pain High 05/10/2012 & Ibuprofen Micronized: Chest tightness Lidocaine Swelling,Rash High 10/28/2016 Oral / enteral lidocaine Lidocaine Hcl Swelling,Rash High 08/10/2016 Oral / enteral lidocaine Liraglutide Nausea And Vomiting,Headache,Rn Medication mps Medium 10/23/2016 Sulfamethoxazole-Trime thoprim Cramps Medium 11/02/2012 Trimethoprim 09/29/2024 Dulaglutide GI intolerance 05/22/2024 Medications simethicone (MYLICON,GAS-X ) 180 mg capsule Take 1 Capsule by mouth 4 times daily as needed (heartburn). 03/27/20 24 Active atorvastatin (LIPITOR) 40 mg tablet Take 1 Tablet by mouth at bedtime. 12/29/19 24 Active cetirizine (ZyrTEC) 10 mg tablet Take 1 Tablet by mouth at bedtime. 12/29/19 24 Active OMEGA-3 FATTY ACIDS ORAL Take by mouth. Active ZINC ORAL Take by mouth. Active ammonium lactate (AmLactin) 12 % lotion Apply [...] time each day in the morning. Active pantoprazole (PROTONIX) 40 mg EC tablet Take 1 tablet (40 mg total) by mouth 1 (one) time each day. Take in a.m. on empty stomach, wait 30 minutes and then eat to activate medication 30 each 06/26/20 24 025 Active cholecalcifero l (VITAMIN D-3) 50 mcg (2,000 unit) capsule TAKE 1 CAPSULE BY MOUTH EVERY DAY 90 capsule 1 07/26/19 25 Active BD Faye 2nd Gen Pen Needle 32 gauge x 5/32 needle USE WITH INSULIN PEN TWICE DAILY 200 each 1 07/26/19 25 Active EPINEPHrine (EPIPEN) 0.3 mg/0.3 mL injection INJECT 1 EACH DIRECTED CONTINUOUS NEEDED FOR OTHER (ANAPHYLAXIS) . 1 each 08/09/19 25 Active Dupixent Syringe 300 mg/2 mL syringe 09/05/19 25 Active diphenhydrAMIN E (BENADRYL) 25 mg tablet Take 10 mg by mouth at bedtime as needed for sleep. Active insulin glargine (Lantus Solostar U-100 Insulin) 100 unit/mL (3 mL) injection pen Inject 18 Units under the skin at bedtime. 15 mL 5 11/22/19 25 Active albuterol HFA (PROAIR HFA ; PROVENTIL HFA ; VENTOLIN HFA) 90 mcg/actuation inhalerIndicat ions:Mild persistent asthma, unspecified whether complicated Inhale 2 puffs by mouth every 6 (six) hours if needed for wheezing or shortness of breath. 3 each 3 11/21/19 25 026 Active montelukast (SINGULAIR) 10 mg tablet Take 1 Tablet by mouth at bedtime. 12/29/19 24 025 Discontinued insulin glargine (Lantus Solostar U-100 Insulin) 100 unit/mL (3 mL) injection pen Inject 18 Units under the skin at bedtime. 15 mL 1 06/13/20 24 025 Discontinued(Re order) Active Problems Problem Noted Date Diagnosed Date DM (diabetes mellitus), type 2 with peripheral vascular complications ([facility] [place], [facility] V28) 06/06/2024 Chronic refractory osteomyel itis of foot, left ([facility] V[facility], [facility] V[facility]) 05/08/2024 Type 2 diabetes mellitus wit h foot ulcer ([facility] V[facility], [facility] V28) 05/08/2024 Peripheral vascular disease, unspecified ([facility] V24) 05/08/2024 Emphysema/COPD ([facility] V[facility], [facility] V28) 2023 Cryoglobulinemia ([facility] V[facility]) 03/02/2024 Pulmonary nodules 12/23/2021 Overview (08/13/2024): Restrictive lung disease 12/23/2021 Overview (04/04/2024): Last Assessment & Plan: Likely due to extrathoracic restriction. Vitamin D insufficiency 12/10/2021 Depression 02/27/2021 Microalbuminuria 12/11/2020 Type II diabetes mellitus wi th renal manifestations ([facility], [facility] V28) 05/20/2020 Type 2 diabetes with ophthal jory manifestation ([facility], [facility] V28) 01/27/2018 Genital herpes simplex 09/03/2017 Severe obesity (BMI 35.0-35. 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 Repeat EGD in 2019. 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 Dr. Valiente. Asthma 11/02/2012 Overview (08/13/2024): Hyperlipidemia 05/10/2012 Type 2 diabetes mellitus wit h neurological manifestations ([facility], [facility] V28) 05/10/2012 Resolved Problems Problem Noted Date Diagnosed Date Resolved Date Skin ulcer of left great toe , limited to breakdown of skin ([facility], [facility] V28) 05/25/2024 06/06/2024 Chronic osteomyelitis with d raining sinus, left ankle and foot ([facility] V[facility], [facility] V28) 05/10/2024 06/06/2024 Non-pressure chronic ulcer o f other part of right foot with bone involvement without evidence of necrosis ([facility] V24, [facility] V28) 05/08/2024 06/06/2024 Osteomyelitis ([facility], [facility] V28) 12/29/2023 06/06/2024 Overview (04/04/2024): 12/26 left first toe Encounters Date Type Department Care Team Description 11/20/2024 9:30 AM EDT [facility] [address] [place] [phone] Mariely Yi MD Lung nodules (Primary Dx); Abnormal chest CT; Mild persistent asthma, unspecified whether complicated 11/14/2024 8:15 AM EDT Office Visit Orthopedic Surgery [facility] 250 175 [facility] [address] [place] [phone] Dion Sierra DPM Controlled type 2 diabetes mellitus with diabetic polyneuropathy, without long-term current use of insulin ([facility] V24, [facility] V28) (Primary Dx); Bunion, left; Arthritis of both feet; Venous insufficiency; Onychomycosis 10/20/2024 Telephone Obstetrics [facility]cology - [facility] [address] [place] [phone] [place], [place] 10/18/2024 8:45 AM EDT Office Visit Obstetrics and Gynecology - [facility] [address] [place] [phone] John Savage CNM Encounter for annual routine gynecological examination (Primary Dx) 10/04/2024 Telephone Gastroenterology - [place] 175 [facility] 175 [facility] [address] [place] [phone] Robert Gomez PA provider call back 09/29/2024 7:39 AM EDT Anesthesia Event [facility] [address] [place] [phone] Henrik Soni DO Millay, Julia, CRNA 09/29/2024 6:55 AM EDT - 09/29/2024 11:59 PM EDT Hospital Encounter [facility] [address] [place] [phone] Cristina Owusu MD Millay, Julia, CRNA Dasilva, John E, MD Kilpatrick's esophagus Discharge Disposition: Home or Self Care 09/14/2024 8:30 AM EDT Office Visit Orthopedic Surgery [facility] 250 175 [facility] [address] [place] [phone] Dion Sierra DPM Controlled type 2 diabetes mellitus with diabetic polyneuropathy, without long-term current use of insulin ([facility] V[facility], [facility] V28) (Primary Dx); Bunion, left; Venous [...] Tubular adenoma of colon 02/11/2016 Diabetic gastroparesis ([facility] V24, [facility] V28) 05/06/2016 Type 2 diabetes with ophthal jory manifestation ([facility], [facility] V28) 01/27/2018 ) Type 2 diabetes mellitus wit h neurological manifestations ([facility], [facility] V28) 05/10/2012 Varicose veins of lower extremity 02/24/2013 Severe, bilaterally w/ pain. Dr. Valiente. Genital herpes simplex 09/03/2017 Allergic rhinitis 02/23/2014 Dependence on nocturnal oxygen therapy 01/27/2018 Gastroesophageal reflux dise ase with esophagitis 01/27/2018 Severe obesity (BMI 35.0-35. 9 with comorbidity) ([facility], [facility] V28) 02/03/2017 Depression 02/27/2021 Cryoglobulinemia ([facility] V[facility]) 03/02/2024 Hypertension COPD (chronic obstructive pu lmonary disease) ([facility], [facility] V28) Type II diabetes mellitus wi th renal manifestations ([facility] V[facility], [facility] V28) 05/20/2020 DM (diabetes mellitus), type 2 with peripheral vascular complications ([facility], [facility] V28) 06/06/2024 Emphysema of lung ([facility] V 24, [facility] V28) GERD (gastroesophageal reflux disease) Family History [...] Industry Job Start Date Job End Date [employer] [facility] [employer] [facility] Not on file Not on file [...] Description 01/10/2025 8:30 AM EDT Office Visit Endocrinology [address] [phone] Micaela Carroll PA [address] [place] [address] 01/10/2025 1:15 PM EDT Office Visit Adult Medicine [address] [phone] Marisel Ojeda MD [address] [place], [place] 01/16/2025 10:45 AM EDT Office Visit Orthopedic Surgery - [place] [phone] [phone] Dion Sierra DPM [address] [address] 02/05/2025 10:00 AM EDT Consult Adult Medicine [facility] [address] [place] [phone] Marisel Ojeda MD [address] [place] [address] 05/24/2025 9:30 AM EST Office Visit Pul[place]gy [place] [address] [phone] Mariely Yi MD [address] [address] Health Maintenance Due Date Last Done Comments [...] Additional history exists Breast Cancer Screening 04/24/2026 04/24/20 24, 04/24/2024, 01/28/2021, Additional history exists Colorectal Cancer [...] Wound Care Education Care Plan Impaired Tissue No Nasra Lewis RN Wound volume breakdown reduced by X% by week 4 Care Plan Impaired Tissue No Nasra Lewis RN Wound volume breakdown reduced by X% by week 8 Care Plan Impaired Tissue No Nasra Lewis RN Wound volume breakdown reduced by X% by week 12 Care Plan Impaired Tissue No Nasra Lewis RN Quit using tobacco (cigarettes, smokeless, etc) [...] omised skin integrity. No Nasra Lewis RN Procedures Procedure Name Priority Date/Time Associated [...] LAB MICROBIOLOGY METHOD 10/19/2024 1:42 PM EDT [facility] Brushing/Spatula Cervix uteri structure / Unknown 10/18/2024 8:53 AM EDT 10/19/2024 6:21 AM EDT John Savage CNM LAB MOLECULAR DIAGNOSTICS [facility] MED[facility] Final Result [facility] [address] [place] [id number], * Pap smear (10/18/2024 8:53 AM EDT) Interpretation Negative for intraepithelial lesion or malignancy 10/20/2024 4:18 PM EDT [facility] General Categorization Negative 10/20/2024 4:18 PM EDT [facility] Other Findings Atrophy 10/20/2024 4:18 PM EDT [facility] Specimen Adequacy Satisfactory for evaluation 10/20/2024 4:18 PM EDT [facility] Pap Methodology Liquid Based Pap Test 10/20/2024 4:18 PM EDT [facility] Disclaimer The Pap test is a screening test which carries an inherent false negative rate. These test results should be correlated with the patient's clinical findings and history. This Pap test was processed using an automated screening system. Technical cytopathology services provided by [facility], at [address] [place] [address] (CLIA # [id number]/Dion Cordero MD, Avionics Systems Repairer.) 10/20/2024 4:18 PM EDT [facility] Console Pap Interpretation Reported 10/20/2024 4:18 PM EDT [facility] Brushing/Spatula Cervix uteri structure / Unknown 10/18/2024 8:53 AM EDT 10/18/2024 8:53 AM EDT us John Savage CNM LAB CYTOLOGY ORDERABLES Final Result [facility] [address] [place] [address], [place] [phone] * TH AN ENDOTRACHEAL(NO CHARGE) (09/29/2024 8:23 [...] Start Time: 09/29/2024 7:50 AM us Henrik Korobkov DO ANESTHESIA ORDERABLES Final Result * EGD Anesthesia - [facility]; [facility] ENDOSCOPY (09/29/2024 8:16 AM EDT) Anatomical Region [...] and HS. Narrative 09/29/2024 8:05 AM EDT [facility] GI Patient Name: Shayla Hu Procedure [...] verified by the physician, the nurse, the jack spinner ? and the precision agriculture technician in the pre-procedure area in the [...] Procedure Code(s): ? --- Professional --- ? 19515, Esophagogastroduodenoscopy, flexible, ? transoral; with biopsy, single or multiple Diagnosis Code(s): ? --- Professional --- ? 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 All rights reserved. The codes documented in this report are preliminary and upon tumbler operator review may be revised to meet current compliance requirements. Cristina Owusu MD 09/29/2024 8:04:53 AM This report has been signed electronically.Cristina Owusu MD Number of Addenda: 0 Note Initiated On: 09/29/2024 7:39 AM Scope In: Scope Out: ? Endoscopy Department at [facility] - [address] [place] [address], ? [place] [phone] Procedure Note Cristina Owusu MD - 09/29/2024 [facility] GI Patient Name: Shayla Hu Procedure Date: 09/29/2024 7:39 AM Date of : 1965 Age: 59 Gender: Female Note Status: Finalized Attending MD: Cristina Owusu MD, Procedure Date No Time: 09/29/2024 Procedure: Upper GI endoscopy Indications: Surveillance for malignancy due to personal historyof Klipatrick's esophagus Providers: Cristina Owusu MD Referring MD: [...] the physician, the nurse, theanesthetist and the precision agriculture technician in the pre-procedure area in the [...] the esophagus. 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 All rights reserved. The codes documented in this report are preliminary and upon tumbler operator reviewmay be revised to meet current compliance requirements. Cristina Owusu MD 09/29/2024 8:04:53 AM This report has been signed electronically.Cristina Owusu MD Number of Addenda: 0 Note Initiated On: 09/29/2024 7:39 AM Scope In: Scope Out: Endoscopy Department at [facility] - [address] [place] [phone] IMPRESSION: - Normal examined duodenum. - A [...] gastric component identified. 10/02/2024 10:36 AM EDT [facility] Gross Description A. Esophagus, lower biopsy: Labeled esophagus biopsy of . Received in formalin are two soft to friable, white tissue fragments, approximately measuring 0.4 cm and 0.6 cm in greatest diameters, which are wrapped in paper and submitted in toto in one cassette, two pieces, multiple levels. dvb/DG 10/02/2024 10:36 AM EDT [facility] Disclaimer Unless otherwise specified, all tissue is 10% NB formalin fixed and paraffin embedded. 10/02/2024 10:36 AM EDT [facility] Tissue Esophageal structure / Unknown 09/29/2024 7:59 AM EDT 09/29/2024 10:53 AM EDT us Cristina Owusu MD LAB PATHOLOGY ORDERABLES Fi nal Result [facility] [address] [place] [address], * Lipid panel with reflex to direct LDL (07/13/2024 3:31 PM EST) Cholesterol 159 0 - 200 mg/dL LAB CHEMISTRY METHOD 07/13/2024 6:46 PM [facility] Triglycerides 53 0 - 150 mg/dL LAB CHEMISTRY METHOD 07/13/2024 6:46 PM [facility] HDL 58 >=40 mg/dL LAB CHEMISTRY METHOD 07/13/2024 6:46 PM [facility] LDL Calculated 90 0 - 100 mg/dL LAB CHEMISTRY METHOD 07/13/2024 6:46 PM [facility] VLDL Cholesterol Jamarcus 10.6 mg/dL LAB CHEMISTRY METHOD 07/13/2024 6:46 PM [facility] Non HDL Chol. (LDL+VLDL) 101 <145 mg/dL LAB CHEMISTRY METHOD 07/13/2024 6:46 PM [facility] Chol/HDL Ratio 2.7 0.0 - 4.4 LAB CHEMISTRY METHOD 07/13/2024 6:46 PM [facility] Blood Venous blood specimen / Unknown Venipuncture / Unknown 07/13/2024 3:31 PM EST 07/13/2024 3:31 PM EST Micaela RODRIGUEZ LAB BLOOD ORDERABLES Final Result [facility] [address] [place] [address], * (ABNORMAL) Microalbumin creatinine urine ratio (07/13/2024 3:31 PM EST) Creatinine, Urine 75.0 mg/dL LAB CHEMISTRY METHOD 07/13/2024 8:27 PM [facility] Microalb, Ur 31.3(H) 0.0 - 29.0 mg/L LAB CHEMISTRY METHOD 07/13/2024 8:27 PM [facility] Microalb/Crea t Ratio 42(H) <30 mg/g creat LAB CHEMISTRY METHOD 07/13/2024 8:27 PM [facility] Urine Urine specimen from urethra / Unknown Non-blood Collection / Unknown 07/13/2024 3:31 PM EST 07/13/2024 3:31 PM EST Micaela RODRIGUEZ LAB URINE ORDERABLES Final Result Performing Organization Address [facility]/ZIP Co de Phone Number [facility] [address] [place] [address], [place] [phone] * Hemoglobin A1c (07/13/2024 3:31 PM EST) Hemoglobin A1C 6.1 <6.5 % LAB CHEMISTRY METHOD 07/13/2024 10:02 PM EST [facility] Mean Bld Glu Estim. 128 mg/dL LAB CHEMISTRY METHOD 07/13/2024 10:02 PM [facility] Blood Venous blood specimen / Unknown Venipuncture / Unknown 07/13/2024 3:31 PM EST 07/13/2024 3:31 PM EST Micaela RODRIGUEZ LAB BLOOD ORDERABLES Final Result Performing Organization Address [facility]/ZIP Co de Phone Number [facility] [address] [place] [address], [place] [phone] * (ABNORMAL) Basic metabolic panel (07/13/2024 3:31 PM EST) Sodium 137 133 - 145 mmol/L LAB CHEMISTRY METHOD 07/13/2024 6:42 PM EST [facility] Potassium 3.6 3.5 - 5.5 mmol/L LAB CHEMISTRY METHOD 07/13/2024 6:42 PM [facility] Chloride 105 96 - 110 mmol/L LAB CHEMISTRY METHOD 07/13/2024 6:42 PM [facility] CO2 26 21 - 32 mmol/L LAB CHEMISTRY METHOD 07/13/2024 6:42 PM [facility] Anion Gap 6 3 - 11 LAB CHEMISTRY METHOD 07/13/2024 6:42 PM [facility] Glucose 67(L) 70 - 100 mg/dL LAB CHEMISTRY METHOD 07/13/2024 6:42 PM [facility] BUN 17 5 - 25 mg/dL LAB CHEMISTRY METHOD 07/13/2024 6:42 PM [facility] Creatinine 0.60 0.50 - 1.10 mg/dL LAB CHEMISTRY METHOD 07/13/2024 6:42 PM [facility] eGFR 104 >=60 mL/min/1. 73m2 LAB CHEMISTRY METHOD 07/13/2024 6:42 PM [facility] Comment:Calculation based on the??Chronic Kidney Disease Epidemiology Collaboration (CKD-EPI) equation refit??without adjustment for race. BUN/Creatinine Ratio 28.3 LAB CHEMISTRY METHOD 07/13/2024 6:42 PM [facility] Calcium 9.0 8.5 - 10.5 mg/dL LAB CHEMISTRY METHOD 07/13/2024 6:42 PM [facility] Blood Venous blood specimen / Unknown Venipuncture / Unknown 07/13/2024 3:31 PM EST 07/13/2024 3:31 PM EST us Micaela RODRIGUEZ LAB BLOOD ORDERABLES Final Result [facility] [address] [place] [address], * SCREENING MAMMOGRAPHY BI 2-VIEW BREAST INC [...] Recommendation: Routine annual screening mammography is recommended [address] [phone] Procedure Note Niko Mathis MD - 05/02/2024 [...] Recommendation: Routine annual screening mammography is recommended [address] [address] Marisel Ojeda MD IMG XR PROCEDURES Final Result * Hm Colonoscopy (06/03/2021) Colonoscopy No interpretation , Abstracted Anatomical Region Laterality Modality Other Historical Provider HEALTH MAINTENANCE Final Result * Hepatitis C Screening (03/04/2021) Hepatitis C Screening Abstracted Historical Provider HEALTH MAINTENANCE Final Result from Last 3 Months or Most Recently Relevant to Health Maintenance Additional Health Concerns Active Problems Noted Date Diagnosed Date Impaired Tissue 05/24/2024 Education needed on impact of smoking on wound 1 07/24/2023 Education needed related to ulceration/compromised skin integrity. 05/24/2024 Insurance [facility] Care Teams Index Editor Relationship Specialty Start Date End Date Marisel Ojeda MD [address] [place] [address] PCP - General Internal Medicine 12/12/02
== END 2024-12-14 13:57 | disposition home or self-care (01) ==
LOC: HO.HVS 13:35
PROVIDERS: PCP Internal Medicine; Visit Provider Physician Assistant Surgical
DX: I83.11 Varicose veins of right lower extremity with inflammation (principal); I83.12 Varicose veins of left lower extremity with inflammation
CPT/HCPCS: 99214

== ENCOUNTER → 2024-12-14 13:34 | Outpatient (BNVA) | payer OTHER, SELFPAY | PROVIDERS: PCP Internal Medicine; Visit Provider Physician Assistant Surgical | DX: I83.11 Varicose veins of right lower extremity with inflammation (principal); I83.12 Varicose veins of left lower extremity with inflammation | CPT/HCPCS: 99212 ==